=== PATIENT | male | born 1965 | race Caucasian/White ===

== ENCOUNTER 2020-07-30 14:35 | Inpatient (IN) | payer OTHER ==
--- NOTE | 2020-07-30 15:12 | PDOC ---
History of Present Illness - General Chief Complaint: Wound Stated Complaint: WOUND Time Seen by Provider: 07/30/20 14:58 - History of Present Illness Initial Comments: 54 yom h/o diabetes (a1c 12.8) presents from Dr. Davis's office for infected 4th toe on right foot and admission for abx. Patient injured toe 1 month prior. Tried to manage conservatively over previous month. Toe became black over last few days, presented to Dr. Davis today, who recd presenting to ER for management of gangrenous toe with admission and IV antibiotics. Patient denies fever, chills, n/v/d, cp, sob. Constitutional: No Weight Change, No Fever, No Chills, No Night Sweats, No Fatigue, No Malaise ENT/Mouth: No Hearing Changes, No Ear Pain, No Nasal Congestion, No Sinus Pain, No Hoarseness, No sore throat, No Rhinorrhea, No Swallowing Difficulty Eyes: No Eye Pain, No Swelling, No Redness, No Foreign Body, No Discharge, No Vision Changes Cardiovascular: No Chest Pain, No SOB, No PND, No Dyspnea on Exertion, No Orthopnea, No Claudication, No Edema, No Palpitations Respiratory: No Cough, No Sputum, No Wheezing, No Smoke Exposure, No Dyspnea Gastrointestinal: No Nausea, No Vomiting, No Diarrhea, No Constipation, No Pain, No Heartburn, No Anorexia, No Dysphagia, No Hematochezia, No Melena, No Flatulence, No Jaundice Genitourinary: No Dysmenorrhea, No DUB, No Dyspareunia, No Dysuria, No Urinary Frequency, No Hematuria, No Urinary Incontinence, No Urgency, No Flank Pain, No Urinary Flow Changes, No Hesitancy Musculoskeletal: No Arthralgias, No Myalgias, No Joint Swelling, No Joint Stiffness, No Back Pain, No Neck Pain, No Injury History Skin: No Skin Lesions, No Pruritis, No Hair Changes, No Breast/Skin Changes, No Nipple Discharge Neuro: No Weakness, No Numbness, No Paresthesias, No Loss of Consciousness, No Syncope, No Dizziness, No Headache, No Coordination Changes, No Recent Falls Psych: No Anxiety/Panic, No Depression, No Insomnia, No Personality Changes, No Delusions, No Rumination, No SI/HI/AH/VH, No Social Issues, No Memory Changes, No Violence/Abuse Hx., No Eating Concerns Heme/Lymph: No Bruising, No Bleeding, No Transfusions History, No Lymphadenopathy Endocrine: No Polyuria, No Polydipsia, No Temperature Intolerance 07/30/20 17:31 Past History - Medical History Allergies/Adverse Reactions: Allergies Allergy/AdvReac Type Severity Reaction Status Date / Time No Known Allergies Allergy Verified 07/30/20 14:42 Home Medications: Ambulatory Orders Amlodipine Besylate [Norvasc -] 10 mg PO DAILY 07/30/20 Ammonium Lactate Cream [Lac-Hydrin 12% *Cream*] 1 applic TP DAILY PRN 07/30/20 Aspirin [ASA -] 81 mg PO DAILY 07/30/20 Basaglar Kwikpen U-100 35 unit SQ HS 07/30/20 Diflorasone Diacetate/Emoll [Apexicon E 0.05% Cream] 30 gm TP DAILY PRN 07/30/20 Glipizide 10 mg PO BID 07/30/20 Lansoprazole [Prevacid] 30 mg PO DAILY 07/30/20 Lisinopril 20 mg PO DAILY 07/30/20 Metformin HCl [Glucophage] 1,000 mg PO BID 07/30/20 Simvastatin 40 mg PO DAILY 07/30/20 Sitagliptin Phosphate [Januvia] 100 mg PO DAILY 07/30/20 COPD: No Diabetes: Yes GI Disorders: Yes (acid reflex) HTN: Yes Hypercholesterolemia: Yes - Surgical History Abdominal Surgery: No Appendectomy: No Cardiac Surgery: No Cholecystectomy: No (gallstones) Lung Surgery: No Neurologic Surgery: No Orthopedic Surgery: Yes (right broken foot) - Psycho-Social/Smoking History Smoking History: Never smoked Have you smoked in the past 12 months: No - Substance Abuse Hx (Audit-C & DAST Scrn) How often the patient has a drink containing alcohol: Never Score: In Men: 4 or > Positive; In Women: 3 or > Positive: 0 Screen Result (Pos requires Nsg. Audit-10AR): Negative In the last yr the pt used illegal drug/Rx for NonMed reason: No Score: Yes response is considered Positive: 0 Screen Result (Positive result requires Nsg. DAST-10): Negative *Physical Exam - Vital Signs Last Vital Signs Temp Pulse Resp BP Pulse Ox 98.4 F 89 18 129/74 100 07/30/20 14:42 07/30/20 14:42 07/30/20 14:42 07/30/20 14:42 07/30/20 14:42 - Physical Exam General Appearance: Yes: Nourished, Appropriately Dressed HEENT: positive: EOMI, MIGUEL, Normal ENT Inspection, Normal Voice, Symmetrical, TMs Normal, Pharynx Normal Neck: positive: Trachea midline, Normal Thyroid Respiratory/Chest: positive: Lungs Clear, Normal Breath Sounds Cardiovascular: positive: Regular Rhythm, Regular Rate, S1, S2 Gastrointestinal/Abdominal: positive: Flat, Soft (4th digit on right foot is black,no surrounding erythema, no discharge, sensation intact, pedal pulses intact, cap refill 2+) ED Treatment Course - LABORATORY CBC & Chemistry Diagram: 07/30/20 16:04 07/30/20 16:04 Medical Decision Making - Medical Decision Making 54 yom h/o diabetes with gangrenous toe - vitals wnl - exam reveals 4th digit on right foot black in color, no discharge, sensation intact, pedal pulses intact, no surrounding erythema - will do cbc, cmp, blood cultures, cxr, ekg, xray right foot, vanc + zosyn, CTA w/ bl runoff - will consult barbra davis and [place] reassess - spoke with dr villasenor who agrees with current plan - ekg is wnl - will admit patient for IV antibiotics and management of toe 07/30/20 17:33 Discharge - Discharge Information Problems reviewed: Yes Clinical Impression/Diagnosis: Gangrene - Follow up/Referral - Patient Discharge Instructions - Post Discharge Activity
[2020-07-30] MEDS ORDERED: VANCOMYCIN 1,000 MG in DEXTROSE 5%-WATER - 250 ML IVPB ONE (15:50)
[2020-07-30] MEDS ORDERED: PIPERACILLIN/TAZOB 4.5 GM 4.5 GM in DEXTROSE 5%-WATER 100 ML IVPB ONE (15:50)
--- NOTE | 2020-07-30 15:51 | PDOC ---
Documentation entered by Jakob Helton SCRIBE, acting as scribe for Jairo Hayden MD. Jairo Hayden MD: This documentation has been prepared by the Sunitha merchant Angel, SCRIBE, under my direction and personally reviewed by me in its entirety. I confirm that the documentation accurately reflects all work, treatment, procedures, and medical decision making performed by me. Attending Attestation - Resident Resident Name: Dominick Wolf - ED Attending Attestation I have performed the following: I have examined & evaluated the patient, The case was reviewed & discussed with the resident, I agree w/resident's findings & plan, Exceptions are as noted - HPI HPI: 07/30/20 15:45 54y M hx of DM presents with foot wound. The pt notes that the nail of his R 4th pinky toe turned black a few weeks ago, he has been following with wound care, and today, he was sent down to the ED by wound care for evlauation of the wound and for a possible Ct. the patient denies any significant pain denies any fever, chills, nausea, vomiting, chest pain, palpitations, lightheadedness, shortness of breath, coughing. Denies any recent trauma or injury besides his nail turning black. - Physicial Exam PE: 07/30/20 15:47 GENERAL: The patient is awake, alert, and fully oriented, Nontoxic - in no acute distress. HEAD: Normocephalic, atraumatic. EYES: extraocular movements intact, sclera anicteric, conjunctiva clear. ENT: Normal voice, Moist mucous membranes. NECK: Normal range of motion, supple LUNGS: Breath sounds equal, clear to auscultation bilaterally. No wheezes, no rhonchi, no rales. HEART: Regular rate and rhythm, normal S1 and S2 without murmur, rub or gallop. ABDOMEN: Soft, nontender, No guarding, no rebound. No CVA tenderness EXTREMITIES: Normal range of motion, no edema. Dorsalis pedis pulses symmetric bilaterally, wound on the dorsal aspect of the right fourth toe, hyperpigmentation/sloughing skin noted on tip, the anterior lateral aspect, diminished sensation along the fourth toe, no significant tenderness to palpation, no purulent discharge, no significant warmth. NEUROLOGICAL: No facial assymetry, Normal speech, PSYCH: Normal mood, normal affect. SKIN: Warm, Dry, normal turgor, - Medical Decision Making 07/30/20 15:48 54-year-old gentleman history of poorly controlled diabetes presenting with wound on his right fourth toe Concerning for diabetic wound consider possible osteomyelitis versus ?gangerine will start abx will obtain CT per vascular 07/30/20 16:48 signed out evening team to fu with results and dispo patient anticipate admission for iv abx Heart Score/ECG Review - ECG Impressions Comment:: 07/30/20 15:51 Twelve-lead EKG was performed and reviewed by me. There is normal sinus rhythm with a normal rate. Rate of 85 The axis is normal. The intervals are normal. There is normal R wave progression Nonspecific T wave abnormality Discharge - Discharge Information Problems reviewed: Yes Clinical Impression/Diagnosis: Gangrene Condition: Stable - Follow up/Referral - Patient Discharge Instructions - Post Discharge Activity
[2020-07-30] MEDS ORDERED: PIPERACILLIN/TAZOB 4.5 GM 4.5 GM/100 ML BAG IVPB ONE (16:11)
[2020-07-30] MEDS ORDERED: VANCOMYCIN 1 GRAM (PRE-DOCKED) 1,000 MG/250 ML BAG IVPB ONE (16:12)
[2020-07-30 16:17] LABS: BASO % 0.8 % (0-2.0); EOS % 1.5 % (0-4.5); HEMATOCRIT 36.2 % (35.4-49); HEMOGLOBIN 11.7 GM/dL (11.7-16.9); MCH 28.5 pg (25.7-33.7); MCHC 32.4 g/dl (32.0-35.9); MEAN PLT VOLUME 10.6 fl (7.5-11.1); MONO % 5.6 % (3.8-10.2); NEUT % 76.1 % (42.8-82.8); PLATELET COUNT 179 K/MM3 (134-434); RBC 4.11 M/mm3 (4.00-5.60); RDW 14.1 % (11.9-15.9); WHITE BLOOD COUNT 7.3 K/mm3 (4.0-10.0)
[2020-07-30 16:47] LABS: ALBUMIN 4.1 g/dl (3.4-5.0); ALK PHOS 62 U/L (45-117); ANION GAP 6 MMOL/L (8-16); BILIRUBIN,TOTAL 0.2 mg/dL (0.2-1); BLOOD UREA NITROGEN 25.1 mg/dL (7-18); CALCIUM 9.3 mg/dL (8.5-10.1); CHLORIDE 103 mmol/L (98-107); CO2 24 mmol/L (21-32); CREATININE 1.4 mg/dL (0.55-1.3); POTASSIUM 5.3 mmol/L (3.5-5.1); SGOT/AST 11 U/L (15-37); SGPT/ALT 26 U/L (13-61); SODIUM 134 mmol/L (136-145); TOT PROT 7.4 g/dl (6.4-8.2)
[2020-07-30 17:11] LABS: ERYTHROCYTE SEDIMENTATION RATE 13 mm/hr (0-20)
[2020-07-30 17:23] LABS: GLUCOSE,RANDOM 420 mg/dL (74-106)
--- NOTE | 2020-07-30 18:24 | HP ---
CHIEF COMPLAINT: right foot pain PCP: N/A HISTORY OF PRESENT ILLNESS: 54 y.o. M PMH uncontrolled diabetes mellitus, HTN presenting from Dr. Dyer's vascular office for right foot 4th digit wound. Patient denies trauma to the area n my interview however endorses stubbing his toe 1 month ago to ED staff. Three days ago, he noticed his 4th digit toenail fell off and became increasingly necrotic over the last 2 days. He has been noticing bloody drainage from the wound. Patient has not been using any topical medications on the wound at home. The patient has minimal pain and is able to ambulate. At baseline walks without a cane or walker. He is being admitted for IV antibiotics. ROS: + R 4th digit toe pain denies parasthesias/ myalgias ER course was notable for: (1) vancbaljindern (2) (3) Recent Travel: PAST MEDICAL HISTORY: as per hpi PAST SURGICAL HISTORY: left eye hematoma? a few months ago Social History: Smoking: denies Alcohol: denies Drugs: denies Allergies No Known Allergies Allergy (Verified 07/30/20 14:42) HOME MEDICATIONS: Home Medications Medication Instructions Recorded Amlodipine Besylate [Norvasc -] 10 mg PO DAILY 07/30/20 Ammonium Lactate Cream [Lac-Hydrin 1 applic TP DAILY PRN 07/30/20 12% *Cream*] Aspirin [ASA -] 81 mg PO DAILY 07/30/20 Basaglar Kwikpen U-100 35 unit SQ HS 07/30/20 Diflorasone Diacetate/Emoll 30 gm TP DAILY PRN 07/30/20 [Apexicon E 0.05% Cream] Glipizide 10 mg PO BID 07/30/20 Lansoprazole [Prevacid] 30 mg PO DAILY 07/30/20 Lisinopril 20 mg PO DAILY 07/30/20 Metformin HCl [Glucophage] 1,000 mg PO BID 07/30/20 Simvastatin 40 mg PO DAILY 07/30/20 Sitagliptin Phosphate [Januvia] 100 mg PO DAILY 07/30/20 PHYSICAL EXAMINATION Vital Signs - 24 hr 07/30/20 14:42 Temperature 98.4 F Pulse Rate 89 Respiratory 18 Rate Blood Pressure 129/74 O2 Sat by Pulse 100 Oximetry (%) GENERAL: Awake, alert, and fully oriented, in no acute distress. HEENT: NCAT. EOMI. PERRLA. Sclera anicteric. LUNGS: Breath sounds equal, clear to auscultation bilaterally. No wheezes, and no crackles. No accessory muscle use. HEART: Regular rate and rhythm, normal S1 and S2 without murmur, rub or gallop. ABDOMEN: Soft, nontender, not distended, normoactive bowel sounds, no guarding MUSCULOSKELETAL: Normal range of motion at all joints. No bony deformities or tenderness. No CVA tenderness. UPPER EXTREMITIES: 2+ pulses, warm, well-perfused. No cyanosis. No clubbing. No peripheral edema. LOWER EXTREMITIES: 2+ pulses, warm, well-perfused. No calf tenderness. No peripheral edema. R foot 4th digit wound with scant bleeding and skin necrosis. NEUROLOGICAL: Cranial nerves II-XII intact. PSYCHIATRIC: Cooperative. Good eye contact. Appropriate mood and affect. SKIN: Warm, dry, normal turgor, no rashes or lesions noted Laboratory Results - last 24 hr 07/30/20 07/30/20 16:04 16:04 WBC 7.3 RBC 4.11 Hgb 11.7 Hct 36.2 MCV 88.0 MCH 28.5 MCHC 32.4 RDW 14.1 Plt Count 179 MPV 10.6 Absolute Neuts (auto) 5.6 Neutrophils % 76.1 Lymphocytes % 16.0 Monocytes % 5.6 Eosinophils % 1.5 Basophils % 0.8 Nucleated RBC % 0 ESR 13 Sodium 134 L Potassium 5.3 H Chloride 103 Carbon Dioxide 24 Anion Gap 6 L BUN 25.1 H Creatinine 1.4 H Est GFR (CKD-EPI)AfAm 65.09 Est GFR (CKD-EPI)NonAf 56.16 Random Glucose 420 H* Calcium 9.3 Total Bilirubin 0.2 AST 11 L ALT 26 Alkaline Phosphatase 62 C-Reactive Protein < 0.3 Total Protein 7.4 Albumin 4.1 ASSESSMENT/PLAN: 54 y.o. M PMH uncontrolled diabetes mellitus, HTN presenting from Dr. Dyer's vascular office for management of right foot 4th digit wound. #Gangrene of right 4th digit -s/p vanc & zosyn in ED- continue -f/u inflamm markers: ESR, CRP -f/u blood and wound cultures -ID consulted- Dr. Del Rio -Vascular following- Dr. Dyer -f/u Toe Xray, cta runoff -Podiatry consulted #Uncontrolled DM -Insulin sliding scale -Resume long acting insulin 35U SQ HS -HbA1c 12.8% in june -diabetic education -spoke with patient regarding importance of medication compliance #Hyperkalemia -downtrending -w/ addition of insulin f/u bmp #Elevated Creatinine -cr 1.6 last visit, 1.4 today -f/u repeat BMP #FEN -no standing fluids -Na wnl corrected for hyperglycemia. hyperkalemia improving -diabetic diet #PPX -heparin sq Dispo: med surg Family Medical History Family History: Denies Visit type - Emergency Visit Emergency Visit: Yes ED Registration Date: 07/30/20 Care time: The patient presented to the Emergency Department on the above date and was hospitalized for further evaluation of their emergent condition. - New Patient This patient is new to me today: Yes Date on this admission: 08/04/20 - Critical Care Critical Care patient: No ATTENDING PHYSICIAN STATEMENT I saw and evaluated the patient. I reviewed the resident's note and discussed the case with the resident. I agree with the resident's findings and plan as documented. SUBJECTIVE: OBJECTIVE: ASSESSMENT AND PLAN:
[2020-07-30] MEDS ORDERED: ACETAMINOPHEN 325 MG TABLET (FP) PO PRN (20:13)
[2020-07-30] MEDS ORDERED: INSULIN REGULAR HUMAN 100 UNITS/ML *VIAL IVPUSH ONE (20:18)
--- NOTE | 2020-07-30 21:02 | PN ---
Teaching Attending Note Name of Resident: Stefany Reagan ATTENDING PHYSICIAN STATEMENT I saw and evaluated the patient. I reviewed the resident's note and discussed the case with the resident. I agree with the resident's findings and plan as documented. SUBJECTIVE: 54y M hx of DM presents with foot wound. OBJECTIVE: V/S Afebrile HR 85 BP 125/70 100% on RA Labs : No leukocytosis BMP: Na 134 Gluc 420 BUN/Creat 25/ 1.4 CO2 24 AG 6 In ED- Vanc and zosyn ASSESSMENT AND PLAN: Diabetic Foot Infection Continue vanc/zosyn ESR/ CRP BCx x 2 Vascular surgery Podiatry consult F/U imaging DM uncontrolled with Hyperglycemia HbA1C -12.8 07/23/2020 Basal Insulin 35 units q pm ISS Monitor F/S HyperK+ Monitor BMP Serially q 6 EKG Insulin for hyperglycemia and HyperK DVT Px- HSQ 5K TID Diet Diabetic
[2020-07-30] MEDS ORDERED: INSULIN (LEVEMIR) 100 UNITS/ML UNITS SQ SCH (22:00)
[2020-07-30] MEDS ORDERED: DEXTROSE 5%-WATER - 50 ML IVPB ONE (22:47)
[2020-07-30] MEDS ORDERED: PIPERACILLIN/TAZOBACTAM 3.375 GM VIAL IVPB ONE (22:47)
[2020-07-30] MEDS: INSULIN SLIDING SCALE (NOVOLOG) 1 VIAL SQ SCH (22:58)
[2020-07-30] MEDS: PIPERACILLIN/TAZOB 3.375 GM 3.375 GM in DEXTROSE 5%-WATER - 50 ML IVPB SCH (22:59)
[2020-07-31 01:42] VITALS: BMI 28.2
[2020-07-31] MEDS ORDERED: PNEUMOC 13-VAL CONJ-DIP CRM/PF 0.5 ML DISP.SYRIN IM ONE (02:25)
[2020-07-31] MEDS ORDERED: DEXTROSE 5%-WATER - 50 ML IVPB ONE ×3 (02:31→17:14)
[2020-07-31] MEDS ORDERED: PIPERACILLIN/TAZOBACTAM 3.375 GM VIAL IVPB ONE ×4 (02:31→17:13)
[2020-07-31] MEDS: PIPERACILLIN/TAZOB 3.375 GM 3.375 GM in DEXTROSE 5%-WATER - 50 ML IVPB SCH ×5 (02:57→17:22)
[2020-07-31] MEDS: HEPARIN NA (PORCINE) 5,000 UNITS/ML 1ML VIAL SQ SCH ×3 (06:25→21:30)
[2020-07-31] MEDS: INSULIN SLIDING SCALE (NOVOLOG) 1 VIAL SQ SCH ×4 (06:25→21:28)
[2020-07-31 08:19] LABS: BASO % 0.7 % (0-2.0); EOS % 3.1 % (0-4.5); HEMATOCRIT 37.7 % (35.4-49); HEMOGLOBIN 12.5 GM/dL (11.7-16.9); LYMPH % 38.8 % (8-40); MCHC 33.2 g/dl (32.0-35.9); MEAN CELL VOLUME 87.4 fl (80-96); MEAN PLT VOLUME 10.6 fl (7.5-11.1); MONO % 6.6 % (3.8-10.2); NEUT % 50.8 % (42.8-82.8); PLATELET COUNT 193 K/MM3 (134-434); RBC 4.32 M/mm3 (4.00-5.60); RDW 14.3 % (11.9-15.9); WHITE BLOOD COUNT 8.5 K/mm3 (4.0-10.0)
[2020-07-31 08:44] LABS: INR 1.06 (0.83-1.09); PROTHROMBIN TIME (PATIENT) 12.5 SEC (9.7-13.0)
[2020-07-31 08:46] LABS: ACTIVATED PTT 30.4 SECONDS (25.2-36.5)
[2020-07-31 08:50] LABS: ALBUMIN 4.1 g/dl (3.4-5.0); ALK PHOS 61 U/L (45-117); ANION GAP 9 MMOL/L (8-16); BILIRUBIN,TOTAL 0.4 mg/dL (0.2-1); BLOOD UREA NITROGEN 21.6 mg/dL (7-18); CALCIUM 9.4 mg/dL (8.5-10.1); CHLORIDE 102 mmol/L (98-107); CO2 28 mmol/L (21-32); CREATININE 1.5 mg/dL (0.55-1.3); GLUCOSE,RANDOM 161 mg/dL (74-106); MAGNESIUM 2.2 mg/dL (1.8-2.4); POTASSIUM 3.9 mmol/L (3.5-5.1); SGOT/AST 14 U/L (15-37); SGPT/ALT 27 U/L (13-61); SODIUM 139 mmol/L (136-145); TOT PROT 7.8 g/dl (6.4-8.2)
[2020-07-31] MEDS ORDERED: PT OWN MED DRAWER 7, Y5N ONE (10:29)
[2020-07-31] MEDS: PANTOPRAZOLE 40 MG TABLET PO SCH (10:36)
[2020-07-31] MEDS: LISINOPRIL 20 MG TABLET PO SCH (10:36)
[2020-07-31] MEDS: amLODIPine BESYLATE 10 MG TABLET (FP) PO SCH (10:36)
--- NOTE | 2020-07-31 11:20 | CON.ID ---
Consult Consult Specialty:: infectious diseases Referred by:: hospitalist Reason for Consultation:: diabtic ulcer and necrotic toe cellulitis of the leg - History of Present Illness Chief Complaint: necrotic toe and swelling of the foot History of Present Illness: 54 y.o. M PMH uncontrolled diabetes mellitus, HTN presenting from Dr. Dyer's vascular office for right foot 4th digit wound. Patient denies trauma to the area however endorses stubbing his toe 1 month ago to ED staff. Three days ago, he noticed his 4th digit toenail fell off and became increasingly necrotic over the last 2 days. He has been noticing bloody drainage from the wound. Patient has not been using any topical medications on the wound at home. The patient has minimal pain and is able to ambulate. At baseline walks without a cane or walker. - History Source History Provided By: Patient, Family Member Limitations to Obtaining History: Language Barrier - Smoking History Smoking history: Never smoked Have you smoked in the past 12 months: No Home Medications - Allergies Allergies/Adverse Reactions: Allergies Allergy/AdvReac Type Severity Reaction Status Date / Time No Known Allergies Allergy Verified 07/30/20 14:42 - Home Medications Home Medications: Ambulatory Orders Amlodipine Besylate [Norvasc -] 10 mg PO DAILY 07/30/20 Ammonium Lactate Cream [Lac-Hydrin 12% *Cream*] 1 applic TP DAILY PRN 07/30/20 Aspirin [ASA -] 81 mg PO DAILY 07/30/20 Faustina Nguyenpen U-100 35 unit SQ HS 07/30/20 Diflorasone Diacetate/Emoll [Apexicon E 0.05% Cream] 30 gm TP DAILY PRN 07/30/20 Glipizide 10 mg PO BID 07/30/20 Lansoprazole [Prevacid] 30 mg PO DAILY 07/30/20 Lisinopril 20 mg PO DAILY 07/30/20 Metformin HCl [Glucophage] 1,000 mg PO BID 07/30/20 Simvastatin 40 mg PO DAILY 07/30/20 Sitagliptin Phosphate [Januvia] 100 mg PO DAILY 07/30/20 Review of Systems - Review of Systems Constitutional: reports: No Symptoms Eyes: reports: No Symptoms HENT: reports: No Symptoms Neck: reports: No Symptoms Cardiovascular: reports: No Symptoms Respiratory: reports: No Symptoms Gastrointestinal: reports: No Symptoms Genitourinary: reports: No Symptoms Musculoskeletal: reports: No Symptoms Integumentary: reports: Erythema (of the foot), Wound, Other Neurological: reports: No Symptoms Endocrine: reports: No Symptoms Hematology/Lymphatic: reports: No Symptoms Psychiatric: reports: No Symptoms Physical Exam Vital Signs: Vital Signs Temperature 98.5 F 07/31/20 05:55 Pulse Rate 77 07/31/20 05:55 Respiratory Rate 20 07/31/20 05:55 Blood Pressure 96/56 L 07/31/20 05:55 O2 Sat by Pulse Oximetry (%) 99 07/31/20 05:55 Constitutional: Yes: Well Nourished, Calm, Mild Distress Eyes: Yes: Conjunctiva Clear HENT: Yes: Atraumatic, Normocephalic Neck: Yes: Supple, Trachea Midline Cardiovascular: Yes: Regular Rate and Rhythm Respiratory: Yes: Regular, CTA Bilaterally Gastrointestinal: Yes: Normal Bowel Sounds, Soft Musculoskeletal: Yes: WNL Extremities: Yes: Other (necrotic wound,with peeling of the skin of the 4th toe) Integumentary: Yes: Skin Tear, Other Wound/Incision: Yes: Dressing Removed, Other (necrotic) Neurological: Yes: Alert, Oriented Psychiatric: Yes: Alert, Oriented Labs: CBC, BMP 07/31/20 07:26 07/31/20 07:26 Imaging - Results Chest X-ray: Report Reviewed, Image Reviewed X-ray: Report Reviewed, Image Reviewed Cat Scan: Report Reviewed, Image Reviewed Assessment/Plan 54 y.o. M PMH uncontrolled diabetes mellitus, HTN presenting from Dr. Dyer's vascular office for management of right foot 4th digit wound. necrotic ulcer of the rt 4th toe dm hyperkalemia increased creatinine plan will start patient on zosyn and oral doxy also await for results hydration rest as per the team #
--- NOTE | 2020-07-31 14:00 | CONSULT ---
Consult Consult Specialty:: Nephrology Reason for Consultation:: ckd - History of Present Illness Chief Complaint: sent in for vascular for lower ext wound History of Present Illness: Pt is a 54 year old male with pmhx of poorly controlled DM and HTN who was sent in from vascular for right foot 4th digit wound. 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 He has had DM for about 30 years. His DM is poorly controlled. He denies dysuria or hematuria. He denies fevers or chills. He denies nsaid use. He denies history of CKD. - History Source History Provided By: Patient - Past Medical History Cardio/Vascular: Yes: HTN Endocrine: Yes: Diabetes Mellitus - Smoking History Smoking history: Never smoked Have you smoked in the past 12 months: No Home Medications - Allergies Allergies/Adverse Reactions: Allergies Allergy/AdvReac Type Severity Reaction Status Date / Time No Known Allergies Allergy Verified 07/30/20 14:42 - Home Medications Home Medications: Ambulatory Orders Amlodipine Besylate [Norvasc -] 10 mg PO DAILY 07/30/20 Ammonium Lactate Cream [Lac-Hydrin 12% *Cream*] 1 applic TP DAILY PRN 07/30/20 Aspirin [ASA -] 81 mg PO DAILY 07/30/20 Basaglar Kwikpen U-100 35 unit SQ HS 07/30/20 Diflorasone Diacetate/Emoll [Apexicon E 0.05% Cream] 30 gm TP DAILY PRN 07/30/20 Glipizide 10 mg PO BID 07/30/20 Lansoprazole [Prevacid] 30 mg PO DAILY 07/30/20 Lisinopril 20 mg PO DAILY 07/30/20 Metformin HCl [Glucophage] 1,000 mg PO BID 07/30/20 Simvastatin 40 mg PO DAILY 07/30/20 Sitagliptin Phosphate [Januvia] 100 mg PO DAILY 07/30/20 Family Medical History Family History: Denies Review of Systems - Review of Systems Constitutional: reports: No Symptoms Eyes: reports: No Symptoms HENT: reports: No Symptoms Neck: reports: No Symptoms Cardiovascular: reports: No Symptoms Respiratory: reports: No Symptoms Gastrointestinal: reports: No Symptoms Genitourinary: reports: No Symptoms Musculoskeletal: reports: No Symptoms Integumentary: reports: No Symptoms Neurological: reports: No Symptoms Endocrine: reports: No Symptoms Hematology/Lymphatic: reports: No Symptoms Psychiatric: reports: No Symptoms Physical Exam Vital Signs: Vital Signs Temperature 98.8 F 07/31/20 09:00 Pulse Rate 90 07/31/20 09:00 Respiratory Rate 20 07/31/20 09:00 Blood Pressure 124/84 07/31/20 09:00 O2 Sat by Pulse Oximetry (%) 100 07/31/20 09:00 Constitutional: Yes: Calm Eyes: Yes: Conjunctiva Clear HENT: Yes: Atraumatic Neck: Yes: Supple Cardiovascular: Yes: S1, S2 Respiratory: Yes: CTA Bilaterally Renal/: Yes: WNL Musculoskeletal: Yes: WNL Edema: No Wound/Incision: Yes: Open to air Neurological: Yes: Oriented Psychiatric: Yes: Oriented Labs: CBC, BMP 07/31/20 07:26 07/31/20 07:26 Laboratory Tests 07/23/20 07/23/20 07/30/20 12:55 12:55 16:04 Creatinine 1.6 H 1.4 H Hemoglobin A1c % 12.8 H Phosphorus COVID-19 (ANNMARIE) 07/30/20 07/31/20 16:09 07:26 Creatinine 1.5 H Hemoglobin A1c % Phosphorus 5.0 H COVID-19 (ANNMARIE) Pending Imaging - Results Chest X-ray: Report Reviewed Problem List - Problems (1) CKD (chronic kidney disease) Code(s): N18.9 - CHRONIC KIDNEY DISEASE, UNSPECIFIED (2) Diabetes mellitus Code(s): E11.9 - TYPE 2 DIABETES MELLITUS WITHOUT COMPLICATIONS (3) HTN (hypertension) Code(s): I10 - ESSENTIAL (PRIMARY) HYPERTENSION Assessment/Plan Current Medications Generic Name Dose Route Start Last Admin Trade Name Freq PRN Reason Stop Dose Admin Acetaminophen 650 mg 07/30/20 20:13 Tylenol - PO Q4H PRN PAIN LEVEL 7 - 10 Amlodipine Besylate 10 mg 07/31/20 10:00 07/31/20 10:36 Norvasc - PO 10 mg DAILY GLORIA Administration Atorvastatin Calcium 40 mg 07/31/20 22:00 Lipitor - PO HS GLORIA Doxycycline Hyclate 100 mg 07/31/20 18:00 Vibramycin - PO BID@1000,1800 GLORIA Heparin Sodium (Porcine) 5,000 unit 07/31/20 06:00 07/31/20 06:25 Heparin - SQ 5,000 unit TID GLORIA Administration Piperacillin Sod/Tazobactam 50 mls @ 100 mls/hr 07/31/20 11:30 07/31/20 11:27 Sod 3.375 gm/ Dextrose IVPB Not Given Q8H-IV GLORIA Protocol Insulin Aspart 1 vial 07/30/20 22:00 07/31/20 11:59 Novolog Vial Sliding Scale - SQ 6 units ACHS GLORIA Administration Protocol Insulin Detemir 35 units 07/30/20 22:00 07/30/20 22:58 Levemir Vial SQ 35 unit HS GLORIA Administration Lisinopril 20 mg 07/31/20 10:00 07/31/20 10:36 Prinivil PO 20 mg DAILY GLORIA Administration Pantoprazole Sodium 40 mg 07/31/20 10:00 07/31/20 10:36 Protonix - PO 40 mg DAILY GLORIA Administration Pneumococcal 13-Valent Conj Vacc 0.5 ml 07/31/20 02:25 Prevnar 13 Syringe - IM 07/31/20 02:26 .ONCE ONE Impression 1. CKD 2. HTN 3. DM 4. lower ext wound Plan - check renal ultrasound - check ua - check protein to data coder operator ratio - cont rachel - discussed importance of glucose control with pt - will comment more on etiology of elevated data coder operator after reviewing urine studies - will follow - will also need outpt follow up - cont wound care Thank You Dr Ibarra
--- NOTE | 2020-07-31 15:08 | PN ---
Physical Exam: SUBJECTIVE: Patient seen and examined OBJECTIVE: Vital Signs Period Temp Pulse Resp BP Sys/Chávez Pulse Ox Last 24 Hr 97.8 F-98.8 F 77-100 20-20 96-125/56-84 99-100 GENERAL: The patient is awake, alert, and fully oriented, in no acute distress. HEAD: Normal with no signs of trauma. EYES: PERRL, extraocular movements intact, sclera anicteric, conjunctiva clear. No ptosis. ENT: Ears normal, nares patent, oropharynx clear without exudates, moist mucous membranes. NECK: Trachea midline, full range of motion, supple. LUNGS: Breath sounds equal, clear to auscultation bilaterally, no wheezes, no crackles, no accessory muscle use. HEART: Regular rate and rhythm, S1, S2 without murmur, rub or gallop. ABDOMEN: Soft, nontender, nondistended, normoactive bowel sounds, no guarding, no rebound, no hepatosplenomegaly, no masses. EXTREMITIES: 2+ pulses, warm, well-perfused, no edema. rt 4th toe, ulcerated NEUROLOGICAL: Cranial nerves II through XII grossly intact. Normal speech, gait not observed. PSYCH: Normal mood, normal affect. SKIN: Warm, dry, normal turgor, no rashes or lesions noted Laboratory Results - last 24 hr 07/30/20 07/30/20 07/30/20 16:04 16:04 22:57 WBC 7.3 RBC 4.11 Hgb 11.7 Hct 36.2 MCV 88.0 MCH 28.5 MCHC 32.4 RDW 14.1 Plt Count 179 MPV 10.6 Absolute Neuts (auto) 5.6 Neutrophils % 76.1 Lymphocytes % 16.0 Monocytes % 5.6 Eosinophils % 1.5 Basophils % 0.8 Nucleated RBC % 0 ESR 13 PT with INR INR PTT (Actin FS) Sodium 134 L Potassium 5.3 H Chloride 103 Carbon Dioxide 24 Anion Gap 6 L BUN 25.1 H Creatinine 1.4 H Est GFR (CKD-EPI)AfAm 65.09 Est GFR (CKD-EPI)NonAf 56.16 POC Glucometer 331 Random Glucose 420 H* Calcium 9.3 Phosphorus Magnesium Total Bilirubin 0.2 AST 11 L ALT 26 Alkaline Phosphatase 62 C-Reactive Protein < 0.3 Total Protein 7.4 Albumin 4.1 07/31/20 07/31/20 07/31/20 06:24 07:26 07:26 WBC 8.5 RBC 4.32 Hgb 12.5 Hct 37.7 MCV 87.4 MCH 29.0 MCHC 33.2 RDW 14.3 Plt Count 193 MPV 10.6 Absolute Neuts (auto) 4.3 Neutrophils % 50.8 D Lymphocytes % 38.8 D Monocytes % 6.6 Eosinophils % 3.1 D Basophils % 0.7 Nucleated RBC % 0 ESR PT with INR 12.50 INR 1.06 PTT (Actin FS) 30.4 Sodium Potassium Chloride Carbon Dioxide Anion Gap BUN Creatinine Est GFR (CKD-EPI)AfAm Est GFR (CKD-EPI)NonAf POC Glucometer 169 Random Glucose Calcium Phosphorus Magnesium Total Bilirubin AST ALT Alkaline Phosphatase C-Reactive Protein Total Protein Albumin 07/31/20 07/31/20 07:26 11:59 WBC RBC Hgb Hct MCV MCH MCHC RDW Plt Count MPV Absolute Neuts (auto) Neutrophils % Lymphocytes % Monocytes % Eosinophils % Basophils % Nucleated RBC % ESR PT with INR INR PTT (Actin FS) Sodium 139 Potassium 3.9 Chloride 102 Carbon Dioxide 28 Anion Gap 9 BUN 21.6 H Creatinine 1.5 H Est GFR (CKD-EPI)AfAm 59.88 Est GFR (CKD-EPI)NonAf 51.67 POC Glucometer 293 Random Glucose 161 H Calcium 9.4 Phosphorus 5.0 H Magnesium 2.2 Total Bilirubin 0.4 AST 14 L ALT 27 Alkaline Phosphatase 61 C-Reactive Protein < 0.3 Total Protein 7.8 Albumin 4.1 Active Medications Generic Name Dose Route Start Last Admin Trade Name Freq PRN Reason Stop Dose Admin Acetaminophen 650 mg 07/30/20 20:13 Tylenol - PO Q4H PRN PAIN LEVEL 7 - 10 Amlodipine Besylate 10 mg 07/31/20 10:00 07/31/20 10:36 Norvasc - PO 10 mg DAILY GLORIA Administration Atorvastatin Calcium 40 mg 07/31/20 22:00 Lipitor - PO HS GLORIA Doxycycline Hyclate 100 mg 07/31/20 18:00 Vibramycin - PO BID@1000,1800 GLORIA Heparin Sodium (Porcine) 5,000 unit 07/31/20 06:00 07/31/20 14:13 Heparin - SQ 5,000 unit TID GLORIA Administration Piperacillin Sod/Tazobactam 50 mls @ 100 mls/hr 07/31/20 11:30 07/31/20 11:27 Sod 3.375 gm/ Dextrose IVPB Not Given Q8H-IV GLORIA Protocol Insulin Aspart 1 vial 07/30/20 22:00 07/31/20 11:59 Novolog Vial Sliding Scale - SQ 6 units ACHS GLORIA Administration Protocol Insulin Detemir 35 units 07/30/20 22:00 07/30/20 22:58 Levemir Vial SQ 35 unit HS GLORIA Administration Lisinopril 20 mg 07/31/20 10:00 07/31/20 10:36 Prinivil PO 20 mg DAILY GLORIA Administration Pantoprazole Sodium 40 mg 07/31/20 10:00 07/31/20 10:36 Protonix - PO 40 mg DAILY GLORIA Administration Pneumococcal 13-Valent Conj Vacc 0.5 ml 07/31/20 02:25 Prevnar 13 Syringe - IM 07/31/20 02:26 .ONCE ONE ASSESSMENT/PLAN: 54 YO M with uncontrolled, diabetic nephropathy & neuropathy, HTN, & HLD who presented with rt foot diabetic wound no responding to outpatient therapy # Diabetic Foot Infection Continue oral docxy + IV zosyn CRP not elevated blood culture pending CTA runoff done pending reading Vascular surgery consult ID consult Podiatry consult F/U imaging case discussed with ID and nephrology DM uncontrolled with Hyperglycemia BRICE on CKD HTN HLD DVT Px- HSQ 5K TID Visit type - Emergency Visit Emergency Visit: Yes ED Registration Date: 07/30/20 Care time: The patient presented to the Emergency Department on the above date and was hospitalized for further evaluation of their emergent condition. - New Patient This patient is new to me today: Yes Date on this admission: 07/31/20 - Critical Care Critical Care patient: No - Discharge Referral Referred to [facility] Med P.C.: No
[2020-07-31 15:55] LABS: PH,URINE 5.5 (5.0-8.0); URINE APPEARANCE CLEAR; URINE BILIRUBIN NEGATIVE (NEGATIVE); URINE COLOR YELLOW; URINE GLUCOSE (UA) 3+ (NEGATIVE); URINE KETONE NEGATIVE (NEGATIVE); URINE LEUK ESTERASE NEGATIVE (NEGATIVE); URINE NITRITE NEGATIVE (NEGATIVE); URINE PROTEIN TRACE (NEGATIVE); URINE UROBILINOGEN 0.2 mg/dL (0.2-1.0)
[2020-07-31] MEDS ORDERED: VANCOMYCIN 1 GM in D5W (PRE-DOCKED) 1,000 MG/250 ML IVPB SCH (16:00)
[2020-07-31] MEDS: DOXYCYCLINE HYCLATE 100 MG CAPSULE PO SCH (17:22)
[2020-07-31] MEDS ORDERED: PNEUMOCOCCAL 23 VACCINE 0.5 ML VIAL IM ONE (19:00)
[2020-07-31] MEDS: INSULIN (LEVEMIR) 100 UNITS/ML UNITS SQ SCH (21:28)
[2020-07-31] MEDS: ATORVASTATIN CA 20 MG TABLET (FP) PO SCH (21:29)
[2020-08-01] MEDS ORDERED: DEXTROSE 5%-WATER - 50 ML IVPB ONE ×3 (01:06→17:10)
[2020-08-01] MEDS ORDERED: PIPERACILLIN/TAZOBACTAM 3.375 GM VIAL IVPB ONE ×3 (01:06→17:10)
[2020-08-01] MEDS: PIPERACILLIN/TAZOB 3.375 GM 3.375 GM in DEXTROSE 5%-WATER - 50 ML IVPB SCH ×3 (01:09→17:12)
[2020-08-01] MEDS: INSULIN SLIDING SCALE (NOVOLOG) 1 VIAL SQ SCH ×4 (06:03→21:15)
[2020-08-01] MEDS: INSULIN (LEVEMIR) 100 UNITS/ML UNITS SQ SCH (06:04)
[2020-08-01] MEDS: HEPARIN NA (PORCINE) 5,000 UNITS/ML 1ML VIAL SQ SCH ×3 (06:04→21:15)
[2020-08-01 07:46] LABS: BASO % 0.7 % (0-2.0); EOS % 3.5 % (0-4.5); HEMATOCRIT 35.4 % (35.4-49); HEMOGLOBIN 11.6 GM/dL (11.7-16.9); LYMPH % 32.3 % (8-40); MCH 28.6 pg (25.7-33.7); MCHC 32.8 g/dl (32.0-35.9); MEAN CELL VOLUME 87.3 fl (80-96); MEAN PLT VOLUME 10.4 fl (7.5-11.1); MONO % 6.6 % (3.8-10.2); NEUT % 56.9 % (42.8-82.8); PLATELET COUNT 163 K/MM3 (134-434); RBC 4.05 M/mm3 (4.00-5.60); WHITE BLOOD COUNT 5.3 K/mm3 (4.0-10.0)
[2020-08-01 07:59] LABS: ALBUMIN 3.6 g/dl (3.4-5.0); BILIRUBIN,TOTAL 0.3 mg/dL (0.2-1); BLOOD UREA NITROGEN 22.2 mg/dL (7-18); CALCIUM 9.2 mg/dL (8.5-10.1); CREATININE 1.4 mg/dL (0.55-1.3); POTASSIUM 4.1 mmol/L (3.5-5.1); TOT PROT 6.7 g/dl (6.4-8.2)
[2020-08-01] MEDS ORDERED: PT OWN MED DRAWER 7, Y5N ONE (09:23)
[2020-08-01] MEDS: PANTOPRAZOLE 40 MG TABLET PO SCH (09:27)
[2020-08-01] MEDS: amLODIPine BESYLATE 10 MG TABLET (FP) PO SCH (09:27)
[2020-08-01] MEDS: DOXYCYCLINE HYCLATE 100 MG CAPSULE PO SCH ×2 (09:27→17:12)
[2020-08-01] MEDS: LISINOPRIL 20 MG TABLET PO SCH (09:27)
--- NOTE | 2020-08-01 10:47 | PN ---
Teaching Attending Note Name of Resident: Kael Scherer ATTENDING PHYSICIAN STATEMENT I saw and evaluated the patient. I reviewed the resident's note and discussed the case with the resident. I agree with the resident's findings and plan as documented. SUBJECTIVE: OBJECTIVE: ASSESSMENT AND PLAN:
--- NOTE | 2020-08-01 13:00 | PN ---
Physical Exam: SUBJECTIVE: Patient seen and examined. No acute events overnight. OBJECTIVE: Vital Signs Temperature 98.7 F 08/01/20 06:00 Pulse Rate 93 H 08/01/20 06:00 Respiratory Rate 20 08/01/20 09:00 Blood Pressure 109/60 08/01/20 06:00 O2 Sat by Pulse Oximetry (%) 97 08/01/20 09:00 GENERAL: The patient is awake, alert, and fully oriented, in no acute distress. HEAD: Normal with no signs of trauma. EYES: PERRLA, EOMI, sclera anicteric, conjunctiva clear. ENT: moist mucous membranes. NECK: Trachea midline, full range of motion, supple. LUNGS: Breath sounds equal, clear to auscultation bilaterally HEART: Regular rate and rhythm, S1, S2 without murmur ABDOMEN: Soft, nontender, nondistended, normoactive bowel sounds EXTREMITIES: 2+ pulses, warm, well-perfused, no edema. R foot 4th digit gangrenous wound with scant bleeding NEUROLOGICAL: Cranial nerves II through XII grossly intact. Normal speech. PSYCH: Normal mood, normal affect. SKIN: Warm, dry, normal turgor. Laboratory Results - last 24 hr 07/30/20 07/31/20 07/31/20 16:09 14:30 14:45 WBC RBC Hgb Hct MCV MCH MCHC RDW Plt Count MPV Absolute Neuts (auto) Neutrophils % Lymphocytes % Monocytes % Eosinophils % Basophils % Nucleated RBC % Sodium Potassium Chloride Carbon Dioxide Anion Gap BUN Creatinine Est GFR (CKD-EPI)AfAm Est GFR (CKD-EPI)NonAf POC Glucometer Random Glucose Calcium Total Bilirubin AST ALT Alkaline Phosphatase Total Protein Albumin Urine Color Yellow Urine Appearance Clear Urine pH 5.5 Ur Specific [place] 1.025 Urine Protein Trace Urine Glucose (UA) 3+ H Urine Ketones Negative Urine Blood Negative Urine Nitrite Negative Urine Bilirubin Negative Urine Urobilinogen 0.2 Ur Leukocyte Esterase Negative Ur Random Creatinine 71.0 U Random Total Protein 28.0 H Protein/Creatinin Ratio 0.4 COVID-19 (ANNMARIE) Not detected 07/31/20 07/31/20 08/01/20 17:23 21:27 06:02 WBC RBC Hgb Hct MCV MCH MCHC RDW Plt Count MPV Absolute Neuts (auto) Neutrophils % Lymphocytes % Monocytes % Eosinophils % Basophils % Nucleated RBC % Sodium Potassium Chloride Carbon Dioxide Anion Gap BUN Creatinine Est GFR (CKD-EPI)AfAm Est GFR (CKD-EPI)NonAf POC Glucometer 204 359 141 Random Glucose Calcium Total Bilirubin AST ALT Alkaline Phosphatase Total Protein Albumin Urine Color Urine Appearance Urine pH Ur Specific [place] Urine Protein Urine Glucose (UA) Urine Ketones Urine Blood Urine Nitrite Urine Bilirubin Urine Urobilinogen Ur Leukocyte Esterase Ur Random Creatinine U Random Total Protein Protein/Creatinin Ratio COVID-19 (ANNMARIE) 08/01/20 08/01/20 08/01/20 06:35 06:35 11:54 WBC 5.3 RBC 4.05 Hgb 11.6 L Hct 35.4 MCV 87.3 MCH 28.6 MCHC 32.8 RDW 14.0 Plt Count 163 MPV 10.4 Absolute Neuts (auto) 3.0 Neutrophils % 56.9 Lymphocytes % 32.3 Monocytes % 6.6 Eosinophils % 3.5 Basophils % 0.7 Nucleated RBC % 0 Sodium 138 Potassium 4.1 Chloride 105 Carbon Dioxide 25 Anion Gap 8 BUN 22.2 H Creatinine 1.4 H Est GFR (CKD-EPI)AfAm 65.09 Est GFR (CKD-EPI)NonAf 56.16 POC Glucometer 268 Random Glucose 160 H Calcium 9.2 Total Bilirubin 0.3 AST 10 L ALT 20 Alkaline Phosphatase 52 Total Protein 6.7 Albumin 3.6 Urine Color Urine Appearance Urine pH Ur Specific [place] Urine Protein Urine Glucose (UA) Urine Ketones Urine Blood Urine Nitrite Urine Bilirubin Urine Urobilinogen Ur Leukocyte Esterase Ur Random Creatinine U Random Total Protein Protein/Creatinin Ratio COVID-19 (ANNMARIE) Active Medications Generic Name Dose Route Start Last Admin Trade Name Freq PRN Reason Stop Dose Admin Acetaminophen 650 mg 07/30/20 20:13 Tylenol - PO Q4H PRN PAIN LEVEL 7 - 10 Amlodipine Besylate 10 mg 07/31/20 10:00 08/01/20 09:27 Norvasc - PO 10 mg DAILY GLORIA Administration Atorvastatin Calcium 40 mg 07/31/20 22:00 07/31/20 21:29 Lipitor - PO 40 mg HS GLORIA Administration Doxycycline Hyclate 100 mg 07/31/20 18:00 08/01/20 09:27 Vibramycin - PO 100 mg BID@1000,1800 GLORIA Administration Heparin Sodium (Porcine) 5,000 unit 07/31/20 06:00 08/01/20 06:04 Heparin - SQ 5,000 unit TID GLORIA Administration Piperacillin Sod/Tazobactam 50 mls @ 100 mls/hr 07/31/20 11:30 08/01/20 09:27 Sod 3.375 gm/ Dextrose IVPB 100 mls/hr Q8H-IV GLORIA Administration Protocol Insulin Aspart 1 vial 07/30/20 22:00 08/01/20 11:55 Novolog Vial Sliding Scale - SQ 6 units ACHS GLORIA Administration Protocol Insulin Detemir 30 units 07/31/20 22:00 08/01/20 06:04 Levemir Vial SQ 30 units BID@0700,2200 GLORIA Administration Lisinopril 20 mg 07/31/20 10:00 08/01/20 09:27 Prinivil PO 20 mg DAILY GLORIA Administration Pantoprazole Sodium 40 mg 07/31/20 10:00 08/01/20 09:27 Protonix - PO 40 mg DAILY GLORIA Administration ASSESSMENT/PLAN: Patient is a 54 year old male with past medical history of uncontrolled diabetes mellitus, HTN presenting from Dr. Dyer's office for management of right foot 4th digit wound. 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 Del Rio -Vascular following- Dr. Dyer -Podiatry consulted -Plan for angio tomorrow pending CTA results -NPO after midnight #Uncontrolled DM -Insulin sliding scale -long acting insulin 30U SQ bid -BGM ACHS -HbA1c 12.8% in june -diabetic education #Hyperkalemia -resolved #BRICE vs CKD -Cr 1.6 last visit, ?at baseline -renal ultrasound unremarkable -UA trace protein -continue monitoring renal function #FEN -no standing fluids -routine bmp monitoring -diabetic diet #PPX -heparin sq #Dispo: med surg Visit type - Emergency Visit Emergency Visit: Yes ED Registration Date: 07/30/20 Care time: The patient presented to the Emergency Department on the above date and was hospitalized for further evaluation of their emergent condition. - New Patient This patient is new to me today: Yes Date on this admission: 08/01/20 - Critical Care Critical Care patient: No ATTENDING PHYSICIAN STATEMENT I saw and evaluated the patient. I reviewed the resident's note and discussed the case with the resident. I agree with the resident's findings and plan as documented. SUBJECTIVE: OBJECTIVE: ASSESSMENT AND PLAN:
--- NOTE | 2020-08-01 15:00 | PN ---
Progress Note, Physician History of Present Illness: Pt seen and examined at bedside. He is awake and alert. he denies shortness of breath. - Current Medication List Current Medications: Active Medications Acetaminophen (Tylenol -) 650 mg PO Q4H PRN PRN Reason: PAIN LEVEL 7 - 10 Amlodipine Besylate (Norvasc -) 10 mg PO DAILY [facility] Last Admin: 08/01/20 09:27 Dose: 10 mg Documented by: Atorvastatin Calcium (Lipitor -) 40 mg PO HS [facility] Last Admin: 07/31/20 21:29 Dose: 40 mg Documented by: Doxycycline Hyclate (Vibramycin -) 100 mg PO BID@1000,1800 [facility] Last Admin: 08/01/20 09:27 Dose: 100 mg Documented by: Heparin Sodium (Porcine) (Heparin -) 5,000 unit SQ TID [facility] Last Admin: 08/01/20 13:03 Dose: 5,000 unit Documented by: Piperacillin Sod/Tazobactam (Sod 3.375 gm/ Dextrose) 50 mls @ 100 mls/hr IVPB Q8H-IV [facility]; Protocol Last Admin: 08/01/20 09:27 Dose: 100 mls/hr Documented by: Insulin Aspart (Novolog Vial Sliding Scale -) 1 vial SQ ACHS [facility]; Protocol Last Admin: 08/01/20 11:55 Dose: 6 units Documented by: Insulin Detemir (Levemir Vial) 30 units SQ BID@0700,2200 [facility] Last Admin: 08/01/20 06:04 Dose: 30 units Documented by: Insulin Detemir (Levemir Vial) 15 units SQ HS ONE Stop: 08/01/20 22:01 Lisinopril (Prinivil) 20 mg PO DAILY [facility] Last Admin: 08/01/20 09:27 Dose: 20 mg Documented by: Pantoprazole Sodium (Protonix -) 40 mg PO DAILY [facility] Last Admin: 08/01/20 09:27 Dose: 40 mg Documented by: - Objective Vital Signs: Vital Signs Temperature 98.7 F 08/01/20 13:58 Pulse Rate 103 H 08/01/20 13:58 Respiratory Rate 20 08/01/20 13:58 Blood Pressure 126/75 08/01/20 13:58 O2 Sat by Pulse Oximetry (%) 98 08/01/20 13:58 Constitutional: Yes: Calm Eyes: Yes: Conjunctiva Clear Cardiovascular: Yes: S1, S2 Respiratory: Yes: CTA Bilaterally Gastrointestinal: Yes: Normal Bowel Sounds, Soft Genitourinary: Yes: WNL Musculoskeletal: Yes: WNL Edema: No Neurological: Yes: Oriented Psychiatric: Yes: Oriented Labs: CBC, BMP 08/01/20 06:35 08/01/20 06:35 INR, PTT INR 1.06 (0.83-1.09) 07/31/20 07:26 Problem List - Problems (1) CKD (chronic kidney disease) Code(s): N18.9 - CHRONIC KIDNEY DISEASE, UNSPECIFIED (2) Diabetes mellitus Code(s): E11.9 - TYPE 2 DIABETES MELLITUS WITHOUT COMPLICATIONS (3) HTN (hypertension) Code(s): I10 - ESSENTIAL (PRIMARY) HYPERTENSION Assessment/Plan Current Medications Generic Name Dose Route Start Last Admin Trade Name Freq PRN Reason Stop Dose Admin Acetaminophen 650 mg 07/30/20 20:13 Tylenol - PO Q4H PRN PAIN LEVEL 7 - 10 Amlodipine Besylate 10 mg 07/31/20 10:00 08/01/20 09:27 Norvasc - PO 10 mg DAILY GLORIA Administration Atorvastatin Calcium 40 mg 07/31/20 22:00 07/31/20 21:29 Lipitor - PO 40 mg HS GLORIA Administration Doxycycline Hyclate 100 mg 07/31/20 18:00 08/01/20 09:27 Vibramycin - PO 100 mg BID@1000,1800 GLORIA Administration Heparin Sodium (Porcine) 5,000 unit 07/31/20 06:00 08/01/20 13:03 Heparin - SQ 5,000 unit TID GLORIA Administration Piperacillin Sod/Tazobactam 50 mls @ 100 mls/hr 07/31/20 11:30 08/01/20 09:27 Sod 3.375 gm/ Dextrose IVPB 100 mls/hr Q8H-IV GLORIA Administration Protocol Insulin Aspart 1 vial 07/30/20 22:00 08/01/20 11:55 Novolog Vial Sliding Scale - SQ 6 units ACHS GLORIA Administration Protocol Insulin Detemir 30 units 07/31/20 22:00 08/01/20 06:04 Levemir Vial SQ 30 units BID@0700,2200 GLORIA Administration Insulin Detemir 15 units 08/01/20 22:00 Levemir Vial SQ 08/01/20 22:01 HS ONE Lisinopril 20 mg 07/31/20 10:00 08/01/20 09:27 Prinivil PO 20 mg DAILY GLORIA Administration Pantoprazole Sodium 40 mg 07/31/20 10:00 08/01/20 09:27 Protonix - PO 40 mg DAILY [facility] Administration Laboratory Tests 07/31/20 07/31/20 14:30 14:45 Urine Protein Trace Urine Glucose (UA) 3+ H Urine Ketones Negative Urine Blood Negative Protein/Creatinin Ratio 0.4 Impression 1. CKD 2. HTN 3. DM 4. lower ext wound Plan - cont to monitor renal function - renal ultrasound reviewed - ua with trace protein - will need outpt follow up - cont rachel - long standing uncontrolled DM can contribute to CKD - cont wound care Thank You Dr Ibarra
[2020-08-01] MEDS ORDERED: INSULIN (NOVOLOG) ASPART 100 UNITS/ML 10ML VIAL ONE (21:12)
[2020-08-01] MEDS: ATORVASTATIN CA 20 MG TABLET (FP) PO SCH (21:15)
--- NOTE | 2020-08-01 21:36 | EKG ---
Test Reason : Blood Pressure : / mmHG Vent. Rate : 085 BPM Atrial Rate : 085 BPM P-R Int : 164 ms QRS Dur : 098 ms QT Int : 354 ms P-R-T Axes : 051 028 049 degrees QTc Int : 421 ms NORMAL SINUS RHYTHM NONSPECIFIC T WAVE ABNORMALITY ABNORMAL ECG NO PREVIOUS ECGS AVAILABLE Confirmed by ALEXIS VELEZ MD ([id number]) on 08/01/2020 9:36:06 PM Referred By: Confirmed By:ALEXIS VELEZ MD
[2020-08-01] MEDS ORDERED: INSULIN (LEVEMIR) 100 UNITS/ML UNITS SQ ONE (22:00)
[2020-08-02] MEDS ORDERED: PIPERACILLIN/TAZOBACTAM 3.375 GM VIAL IVPB ONE ×3 (01:50→16:40)
[2020-08-02] MEDS ORDERED: DEXTROSE 5%-WATER - 50 ML IVPB ONE ×2 (01:50→16:40)
[2020-08-02] MEDS: PIPERACILLIN/TAZOB 3.375 GM 3.375 GM in DEXTROSE 5%-WATER - 50 ML IVPB SCH ×3 (01:58→17:08)
[2020-08-02] MEDS: HEPARIN NA (PORCINE) 5,000 UNITS/ML 1ML VIAL SQ SCH ×3 (05:04→21:42)
[2020-08-02] MEDS: INSULIN SLIDING SCALE (NOVOLOG) 1 VIAL SQ SCH ×4 (06:27→21:35)
[2020-08-02 06:46] LABS: BASO % 0.6 % (0-2.0); HEMATOCRIT 32.8 % (35.4-49); HEMOGLOBIN 10.7 GM/dL (11.7-16.9); LYMPH % 27.3 % (8-40); MCH 28.4 pg (25.7-33.7); MCHC 32.6 g/dl (32.0-35.9); MEAN PLT VOLUME 10.3 fl (7.5-11.1); MONO % 6.7 % (3.8-10.2); NEUT % 63.4 % (42.8-82.8); PLATELET COUNT 161 K/MM3 (134-434); RBC 3.77 M/mm3 (4.00-5.60); RDW 14.4 % (11.9-15.9); WHITE BLOOD COUNT 6.6 K/mm3 (4.0-10.0)
[2020-08-02 07:26] LABS: ALBUMIN 3.5 g/dl (3.4-5.0); BILIRUBIN,TOTAL 0.4 mg/dL (0.2-1); BLOOD UREA NITROGEN 23.2 mg/dL (7-18); CALCIUM 8.7 mg/dL (8.5-10.1); CREATININE 1.5 mg/dL (0.55-1.3); POTASSIUM 4.9 mmol/L (3.5-5.1); TOT PROT 6.6 g/dl (6.4-8.2)
--- NOTE | 2020-08-02 07:49 | CONSULT ---
Consult - text type - Consultation Consultation Note: Podiatry Consultation: 54 year old diabetic male sent in for admission for worsening right fourth digit. Patient endorses a 2 week history of worsening digit. Patient notes having loosening of the nail, when he removed the piece of nail a small portion of the skin was removed. Denies F/V/N/C/SOB/CP. Afebrile currently. PMHx: DM, HTN, HLP, CKD Meds: noted in chart ALL: NKMA BRITTNEY: R foot: dorsalis pedis pulse 1/4, posterior tibial pulse 1/4, TG wnl. CFT delayed the right fourth digit. There are dry necrotic gangrenous changes exhibited to the distal half of the fourth digit. There is no probing to bone, no purulent drainage, no fluctuance, no streaking ascending cellulitis, no signs of active infection. No tenderness to palpation. Imp: 54 year old diabetic male with right fourth digit dry gangrene 1. IV abx per infectious disease 2. CTA obtained, results pending 3. Depending on results of CTA, may need RLE angiogram with Dr. Dyer 4. Discussed treatment options with patient regarding continued local care versus amputation of the digit. He is unsure of what to do at this time. We will discuss tomorrow regarding definitive options. 5. Will follow. Discussed with Dr. Dyer. Thank you for the courtesy of this consultation.
--- NOTE | 2020-08-02 09:15 | PN ---
Progress Note (short form) - Note Progress Note: Vascular Surgery 54 year old male comes in with 3 week history of right 4th toe discoloration. Pt took off his nail at home and then went to usability [facility]. Podiatry referred to wound care clinic. Pt is a non compliant, poorly controlled diabetic. Pt has a hemoglobin of 12.1. Pt came into wound care center on sunday with a discolored distal right fourth toe. Pt has a palpable DP pulse. CTA done . Not officially read by radiology. On review of the images, i do not see any occlusions. Podiatry is on the case and saw the pt this am. Pt was admitted on sunday, -- ID saw the pt in wound care center and admitted for IV antiboitics. At that time, with a intrepreter, we explained to the pt, that we need to check his circulation. We also explained to the patient that due his poorly controlled diabetes, he is not healing well on his toe, and there is a chance that he might lose his toe. Awaiting official read of CTA. Hugh Dyer DO
[2020-08-02] MEDS: DOXYCYCLINE HYCLATE 100 MG CAPSULE PO SCH ×2 (10:00→17:08)
[2020-08-02] MEDS: LISINOPRIL 20 MG TABLET PO SCH (10:29)
[2020-08-02] MEDS: amLODIPine BESYLATE 10 MG TABLET (FP) PO SCH (10:29)
[2020-08-02] MEDS: PANTOPRAZOLE 40 MG TABLET PO SCH (10:30)
--- NOTE | 2020-08-02 11:49 | PN ---
Progress Note, Physician History of Present Illness: stable no new issues wound looks good - Current Medication List Current Medications: Active Medications Acetaminophen (Tylenol -) 650 mg PO Q4H PRN PRN Reason: PAIN LEVEL 7 - 10 Amlodipine Besylate (Norvasc -) 10 mg PO DAILY [facility] Last Admin: 08/02/20 10:29 Dose: 10 mg Documented by: Atorvastatin Calcium (Lipitor -) 40 mg PO HS [facility] Last Admin: 08/01/20 21:15 Dose: 40 mg Documented by: Doxycycline Hyclate (Vibramycin -) 100 mg PO BID@1000,1800 [facility] Last Admin: 08/02/20 10:00 Dose: 100 mg Documented by: Heparin Sodium (Porcine) (Heparin -) 5,000 unit SQ TID [facility] Last Admin: 08/02/20 05:04 Dose: 5,000 unit Documented by: Piperacillin Sod/Tazobactam (Sod 3.375 gm/ Dextrose) 50 mls @ 100 mls/hr IVPB Q8H-IV [facility]; Protocol Last Admin: 08/02/20 10:30 Dose: 100 mls/hr Documented by: Insulin Aspart (Novolog Vial Sliding Scale -) 1 vial SQ ACHS [facility]; Protocol Last Admin: 08/02/20 06:27 Dose: Not Given Documented by: Insulin Detemir (Levemir Vial) 30 units SQ BID@0700,2200 [facility] Last Admin: 08/01/20 06:04 Dose: 30 units Documented by: Lisinopril (Prinivil) 20 mg PO DAILY [facility] Last Admin: 08/02/20 10:29 Dose: 20 mg Documented by: Pantoprazole Sodium (Protonix -) 40 mg PO DAILY [facility] Last Admin: 08/02/20 10:30 Dose: 40 mg Documented by: - Objective Vital Signs: Vital Signs Temperature 98.4 F 08/02/20 05:58 Pulse Rate 81 08/02/20 05:58 Respiratory Rate 20 08/02/20 05:58 Blood Pressure 97/53 L 08/02/20 05:58 O2 Sat by Pulse Oximetry (%) 97 08/02/20 05:58 Constitutional: Yes: No Distress, Calm Cardiovascular: Yes: S1, S2 Respiratory: Yes: Regular, CTA Bilaterally Gastrointestinal: Yes: Normal Bowel Sounds, Soft Musculoskeletal: Yes: WNL Extremities: Yes: Other Wound/Incision: Yes: Open to air Neurological: Yes: Alert, Oriented Psychiatric: Yes: Alert, Oriented Labs: CBC, BMP 08/02/20 06:14 08/02/20 06:14 INR, PTT INR 1.06 (0.83-1.09) 07/31/20 07:26 Assessment/Plan 54 y.o. M PMH uncontrolled diabetes mellitus, HTN presenting from Dr. Dyer's vascular office for management of right foot 4th digit wound. necrotic ulcer of the rt 4th toe dm hyperkalemia increased creatinine plan continue abx consider getting an mri official read pending of ango wound care rest as per the team
--- NOTE | 2020-08-02 12:47 | PN ---
Teaching Attending Note Name of Resident: Stefany Reagan ATTENDING PHYSICIAN STATEMENT I saw and evaluated the patient. I reviewed the resident's note and discussed the case with the resident. I agree with the resident's findings and plan as documented. SUBJECTIVE: pt seen and examined OBJECTIVE: Last Vital Signs Temp Pulse Resp BP Pulse Ox 98.4 F 81 20 97/53 L 97 08/02/20 05:58 10 05:58 10 05:58 08/02/20 05:58 08/02/20 05:58 GENERAL: The patient is awake, alert, and fully oriented, in no acute distress. LUNGS: Breath sounds equal, clear to auscultation bilaterally, no wheezes, no crackles, no accessory muscle use. HEART: Regular rate and rhythm, S1, S2 without murmur, rub or gallop. ABDOMEN: Soft, nontender, nondistended, normoactive bowel sounds, no guarding, no rebound, no hepatosplenomegaly, no masses. EXTREMITIES: 2+ pulses, warm, well-perfused, no edema. rt 4th toe, ulcerated NEUROLOGICAL: Cranial nerves II through XII grossly intact. Normal speech, gait not observed. CBCD WBC 6.6 K/mm3 (4.0-10.0) 08/02/20 06:14 RBC 3.77 M/mm3 (4.00-5.60) L 08/02/20 06:14 Hgb 10.7 GM/dL (11.7-16.9) L 08/02/20 06:14 Hct 32.8 % (35.4-49) L 08/02/20 06:14 MCV 87.0 fl (80-96) 08/02/20 06:14 MCHC 32.6 g/dl (32.0-35.9) 08/02/20 06:14 RDW 14.4 % (11.9-15.9) 08/02/20 06:14 Plt Count 161 K/MM3 (134-434) 08/02/20 06:14 MPV 10.3 fl (7.5-11.1) 08/02/20 06:14 CMP Sodium 141 mmol/L (136-145) 08/02/20 06:14 Potassium 4.9 mmol/L (3.5-5.1) 08/02/20 06:14 Chloride 109 mmol/L (98-107) H 08/02/20 06:14 Carbon Dioxide 26 mmol/L (21-32) 08/02/20 06:14 Anion Gap 6 MMOL/L (8-16) L 08/02/20 06:14 BUN 23.2 mg/dL (7-18) H 08/02/20 06:14 Creatinine 1.5 mg/dL (0.55-1.3) H 08/02/20 06:14 Calcium 8.7 mg/dL (8.5-10.1) 08/02/20 06:14 Total Bilirubin 0.4 mg/dL (0.2-1) 08/02/20 06:14 AST 15 U/L (15-37) 08/02/20 06:14 ALT 23 U/L (13-61) 08/02/20 06:14 Alkaline Phosphatase 48 U/L (45-117) 08/02/20 06:14 Total Protein 6.6 g/dl (6.4-8.2) 08/02/20 06:14 Albumin 3.5 g/dl (3.4-5.0) 08/02/20 06:14 Active Medications Acetaminophen (Tylenol -) 650 mg PO Q4H PRN PRN Reason: PAIN LEVEL 7 - 10 Amlodipine Besylate (Norvasc -) 10 mg PO DAILY [facility] Last Admin: 08/02/20 10:29 Dose: 10 mg Documented by: Atorvastatin Calcium (Lipitor -) 40 mg PO HS [facility] Last Admin: 08/01/20 21:15 Dose: 40 mg Documented by: Doxycycline Hyclate (Vibramycin -) 100 mg PO BID@1000,1800 [facility] Last Admin: 08/02/20 10:00 Dose: 100 mg Documented by: Heparin Sodium (Porcine) (Heparin -) 5,000 unit SQ TID [facility] Last Admin: 08/02/20 05:04 Dose: 5,000 unit Documented by: Piperacillin Sod/Tazobactam (Sod 3.375 gm/ Dextrose) 50 mls @ 100 mls/hr IVPB Q8H-IV [facility]; Protocol Last Admin: 08/02/20 10:30 Dose: 100 mls/hr Documented by: Insulin Aspart (Novolog Vial Sliding Scale -) 1 vial SQ ACHS [facility]; Protocol Last Admin: 08/02/20 06:27 Dose: Not Given Documented by: Insulin Detemir (Levemir Vial) 30 units SQ BID@0700,2200 [facility] Last Admin: 08/01/20 06:04 Dose: 30 units Documented by: Lisinopril (Prinivil) 20 mg PO DAILY [facility] Last Admin: 08/02/20 10:29 Dose: 20 mg Documented by: Pantoprazole Sodium (Protonix -) 40 mg PO DAILY [facility] Last Admin: 08/02/20 10:30 Dose: 40 mg Documented by: ASSESSMENT AND PLAN: 54 YO Man with uncontrolled diabetic nephropathy & neuropathy, HTN, & HLD who presented with rt foot diabetic wound no responding to outpatient therapy # Diabetic Foot Infection Continue oral docxy + IV zosyn CRP not elevated blood culture pending CTA runoff done pending reading MRI on 07/30 showing 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
--- NOTE | 2020-08-02 13:18 | PN ---
Progress Note, Physician History of Present Illness: Pt seen and examined at bedside. He is awake and alert. he denies shortness of breath. - Current Medication List Current Medications: Active Medications Acetaminophen (Tylenol -) 650 mg PO Q4H PRN PRN Reason: PAIN LEVEL 7 - 10 Amlodipine Besylate (Norvasc -) 10 mg PO DAILY [facility] Last Admin: 08/02/20 10:29 Dose: 10 mg Documented by: Atorvastatin Calcium (Lipitor -) 40 mg PO HS [facility] Last Admin: 08/01/20 21:15 Dose: 40 mg Documented by: Doxycycline Hyclate (Vibramycin -) 100 mg PO BID@1000,1800 [facility] Last Admin: 08/02/20 10:00 Dose: 100 mg Documented by: Heparin Sodium (Porcine) (Heparin -) 5,000 unit SQ TID [facility] Last Admin: 08/02/20 05:04 Dose: 5,000 unit Documented by: Piperacillin Sod/Tazobactam (Sod 3.375 gm/ Dextrose) 50 mls @ 100 mls/hr IVPB Q8H-IV [facility]; Protocol Last Admin: 08/02/20 10:30 Dose: 100 mls/hr Documented by: Insulin Aspart (Novolog Vial Sliding Scale -) 1 vial SQ ACHS [facility]; Protocol Last Admin: 08/02/20 06:27 Dose: Not Given Documented by: Insulin Detemir (Levemir Vial) 30 units SQ BID@0700,2200 [facility] Last Admin: 08/01/20 06:04 Dose: 30 units Documented by: Lisinopril (Prinivil) 20 mg PO DAILY [facility] Last Admin: 08/02/20 10:29 Dose: 20 mg Documented by: Pantoprazole Sodium (Protonix -) 40 mg PO DAILY [facility] Last Admin: 08/02/20 10:30 Dose: 40 mg Documented by: - Objective Vital Signs: Vital Signs Temperature 98.4 F 08/02/20 05:58 Pulse Rate 81 08/02/20 05:58 Respiratory Rate 20 08/02/20 05:58 Blood Pressure 97/53 L 08/02/20 05:58 O2 Sat by Pulse Oximetry (%) 97 08/02/20 05:58 Constitutional: Yes: Calm Eyes: Yes: Conjunctiva Clear HENT: Yes: Atraumatic Neck: Yes: Supple Cardiovascular: Yes: S1, S2 Respiratory: Yes: CTA Bilaterally Gastrointestinal: Yes: Soft Genitourinary: Yes: WNL Musculoskeletal: Yes: WNL Edema: No Neurological: Yes: Oriented Psychiatric: Yes: Oriented Labs: CBC, BMP 08/02/20 06:14 08/02/20 06:14 INR, PTT INR 1.06 (0.83-1.09) 07/31/20 07:26 Problem List - Problems (1) CKD (chronic kidney disease) Code(s): N18.9 - CHRONIC KIDNEY DISEASE, UNSPECIFIED (2) Diabetes mellitus Code(s): E11.9 - TYPE 2 DIABETES MELLITUS WITHOUT COMPLICATIONS (3) HTN (hypertension) Code(s): I10 - ESSENTIAL (PRIMARY) HYPERTENSION Assessment/Plan Current Medications Generic Name Dose Route Start Last Admin Trade Name Freq PRN Reason Stop Dose Admin Acetaminophen 650 mg 07/30/20 20:13 Tylenol - PO Q4H PRN PAIN LEVEL 7 - 10 Amlodipine Besylate 10 mg 07/31/20 10:00 08/02/20 10:29 Norvasc - PO 10 mg DAILY [facility] Administration Atorvastatin Calcium 40 mg 07/31/20 22:00 08/01/20 21:15 Lipitor - PO 40 mg HS [facility] Administration Doxycycline Hyclate 100 mg 07/31/20 18:00 08/02/20 10:00 Vibramycin - PO 100 mg BID@1000,1800 [facility] Administration Heparin Sodium (Porcine) 5,000 unit 07/31/20 06:00 08/02/20 05:04 Heparin - SQ 5,000 unit TID [facility] Administration Piperacillin Sod/Tazobactam 50 mls @ 100 mls/hr 07/31/20 11:30 08/02/20 10:30 Sod 3.375 gm/ Dextrose IVPB 100 mls/hr Q8H-IV [facility] Administration Protocol Insulin Aspart 1 vial 07/30/20 22:00 08/02/20 06:27 Novolog Vial Sliding Scale - SQ Not Given ACHS [facility] Protocol Insulin Detemir 30 units 07/31/20 22:00 08/01/20 06:04 Levemir Vial SQ 30 units BID@0700,2200 [facility] Administration Lisinopril 20 mg 07/31/20 10:00 08/02/20 10:29 Prinivil PO 20 mg DAILY [facility] Administration Pantoprazole Sodium 40 mg 07/31/20 10:00 08/02/20 10:30 Protonix - PO 40 mg DAILY [facility] Administration Impression 1. CKD 2. HTN 3. DM 4. lower ext wound Plan - follow up cta report - monitor renal function - cont rachel for now - long standing uncontrolled DM can contribute to CKD - cont wound care Thank You Dr Ibarra
--- NOTE | 2020-08-02 14:25 | PN ---
Physical Exam: SUBJECTIVE: Patient seen and examined. OBJECTIVE: Vital Signs Period Temp Pulse Resp BP Sys/Chávez Pulse Ox Last 24 Hr 98.3 F-98.5 F 81-102 18-99 97-145/53-68 97-99 GENERAL: The patient is awake, alert, and fully oriented, in no acute distress. LUNGS: Breath sounds equal, clear to auscultation bilaterally, no wheezes, no crackles, no accessory muscle use. HEART: Regular rate and rhythm, S1, S2 without murmur, rub or gallop. ABDOMEN: Soft, nontender, nondistended, normoactive bowel sounds, no guarding, no rebound, no hepatosplenomegaly, no masses. EXTREMITIES: 2+ pulses, warm, well-perfused, no edema. rt 4th toe, ulcerated NEUROLOGICAL: Cranial nerves II through XII grossly intact. Normal speech, gait not observed. Laboratory Results - last 24 hr 08/01/20 08/01/20 08/02/20 16:54 21:14 06:14 WBC 6.6 RBC 3.77 L Hgb 10.7 L Hct 32.8 L MCV 87.0 MCH 28.4 MCHC 32.6 RDW 14.4 Plt Count 161 MPV 10.3 Absolute Neuts (auto) 4.2 Neutrophils % 63.4 Lymphocytes % 27.3 Monocytes % 6.7 Eosinophils % 2.0 Basophils % 0.6 Nucleated RBC % 0 Sodium Potassium Chloride Carbon Dioxide Anion Gap BUN Creatinine Est GFR (CKD-EPI)AfAm Est GFR (CKD-EPI)NonAf POC Glucometer 270 256 Random Glucose Calcium Total Bilirubin AST ALT Alkaline Phosphatase Total Protein Albumin 08/02/20 08/02/20 08/02/20 06:14 06:26 11:32 WBC RBC Hgb Hct MCV MCH MCHC RDW Plt Count MPV Absolute Neuts (auto) Neutrophils % Lymphocytes % Monocytes % Eosinophils % Basophils % Nucleated RBC % Sodium 141 Potassium 4.9 Chloride 109 H Carbon Dioxide 26 Anion Gap 6 L BUN 23.2 H Creatinine 1.5 H Est GFR (CKD-EPI)AfAm 59.88 Est GFR (CKD-EPI)NonAf 51.67 POC Glucometer 120 190 Random Glucose 133 H Calcium 8.7 Total Bilirubin 0.4 AST 15 ALT 23 Alkaline Phosphatase 48 Total Protein 6.6 Albumin 3.5 Active Medications Generic Name Dose Route Start Last Admin Trade Name Freq PRN Reason Stop Dose Admin Acetaminophen 650 mg 07/30/20 20:13 Tylenol - PO Q4H PRN PAIN LEVEL 7 - 10 Amlodipine Besylate 10 mg 07/31/20 10:00 08/02/20 10:29 Norvasc - PO 10 mg DAILY [facility] Administration Atorvastatin Calcium 40 mg 07/31/20 22:00 08/01/20 21:15 Lipitor - PO 40 mg HS [facility] Administration Doxycycline Hyclate 100 mg 07/31/20 18:00 08/02/20 10:00 Vibramycin - PO 100 mg BID@1000,1800 [facility] Administration Heparin Sodium (Porcine) 5,000 unit 07/31/20 06:00 08/02/20 05:04 Heparin - SQ 5,000 unit TID [facility] Administration Piperacillin Sod/Tazobactam 50 mls @ 100 mls/hr 07/31/20 11:30 08/02/20 10:30 Sod 3.375 gm/ Dextrose IVPB 100 mls/hr Q8H-IV [facility] Administration Protocol Insulin Aspart 1 vial 07/30/20 22:00 08/02/20 13:57 Novolog Vial Sliding Scale - SQ Not Given ACHS [facility] Protocol Insulin Detemir 30 units 07/31/20 22:00 08/01/20 06:04 Levemir Vial SQ 30 units BID@0700,2200 [facility] Administration Lisinopril 20 mg 07/31/20 10:00 08/02/20 10:29 Prinivil PO 20 mg DAILY [facility] Administration Pantoprazole Sodium 40 mg 07/31/20 10:00 08/02/20 10:30 Protonix - PO 40 mg DAILY [facility] Administration ASSESSMENT/PLAN: Pt is a 54 year old M with PMHx of uncontrolled diabetic nephropathy and neuropathy, HTN, HLD presenting with R foot wound admitted for diabetic foot infection. 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 NPO for angio pending CTA read ATTENDING PHYSICIAN STATEMENT I saw and evaluated the patient. I reviewed the resident's note and discussed the case with the resident. I agree with the resident's findings and plan as documented. SUBJECTIVE: OBJECTIVE: ASSESSMENT AND PLAN:
[2020-08-02] MEDS ORDERED: INSULIN (NOVOLOG) ASPART 100 UNITS/ML 10ML VIAL ONE (21:05)
[2020-08-02] MEDS: INSULIN (LEVEMIR) 100 UNITS/ML UNITS SQ SCH (21:33)
[2020-08-02] MEDS: ATORVASTATIN CA 20 MG TABLET (FP) PO SCH (21:40)
[2020-08-03] MEDS ORDERED: DEXTROSE 5%-WATER - 50 ML IVPB ONE ×3 (01:04→17:21)
[2020-08-03] MEDS ORDERED: PIPERACILLIN/TAZOBACTAM 3.375 GM VIAL IVPB ONE ×3 (01:04→17:21)
[2020-08-03] MEDS: PIPERACILLIN/TAZOB 3.375 GM 3.375 GM in DEXTROSE 5%-WATER - 50 ML IVPB SCH ×3 (01:21→17:27)
[2020-08-03] MEDS: INSULIN (LEVEMIR) 100 UNITS/ML UNITS SQ SCH ×2 (06:31→21:28)
[2020-08-03] MEDS: HEPARIN NA (PORCINE) 5,000 UNITS/ML 1ML VIAL SQ SCH ×3 (06:31→21:27)
[2020-08-03] MEDS: INSULIN SLIDING SCALE (NOVOLOG) 1 VIAL SQ SCH ×4 (06:31→21:29)
[2020-08-03] MEDS ORDERED: PT OWN MED DRAWER 7, Y5N ONE ×2 (06:37→09:21)
[2020-08-03 08:43] LABS: HEMATOCRIT 34.1 % (35.4-49); HEMOGLOBIN 11.2 GM/dL (11.7-16.9); MCH 28.8 pg (25.7-33.7); MCHC 32.7 g/dl (32.0-35.9); MEAN CELL VOLUME 88.1 fl (80-96); MEAN PLT VOLUME 10.7 fl (7.5-11.1); PLATELET COUNT 157 K/MM3 (134-434); RBC 3.87 M/mm3 (4.00-5.60); RDW 14.5 % (11.9-15.9); WHITE BLOOD COUNT 4.6 K/mm3 (4.0-10.0)
[2020-08-03 08:48] LABS: BLOOD UREA NITROGEN 19.3 mg/dL (7-18); CALCIUM 8.8 mg/dL (8.5-10.1); CREATININE 1.3 mg/dL (0.55-1.3); MAGNESIUM 2.3 mg/dL (1.8-2.4); PHOSPHOROUS 3.5 mg/dL (2.5-4.9); POTASSIUM 4.5 mmol/L (3.5-5.1)
[2020-08-03] MEDS: LISINOPRIL 20 MG TABLET PO SCH (09:27)
[2020-08-03] MEDS: amLODIPine BESYLATE 10 MG TABLET (FP) PO SCH (09:27)
[2020-08-03] MEDS: PANTOPRAZOLE 40 MG TABLET PO SCH (09:28)
[2020-08-03] MEDS: DOXYCYCLINE HYCLATE 100 MG CAPSULE PO SCH ×2 (09:28→17:27)
[2020-08-03] MEDS ORDERED: INSULIN (NOVOLOG) ASPART 100 UNITS/ML 10ML VIAL ONE (11:12)
--- NOTE | 2020-08-03 12:25 | PN ---
Progress Note, Physician History of Present Illness: stable no new issues - Current Medication List Current Medications: Active Medications Acetaminophen (Tylenol -) 650 mg PO Q4H PRN PRN Reason: PAIN LEVEL 7 - 10 Amlodipine Besylate (Norvasc -) 10 mg PO DAILY [facility] Last Admin: 08/03/20 09:27 Dose: 10 mg Documented by: Atorvastatin Calcium (Lipitor -) 40 mg PO HS [facility] Last Admin: 08/02/20 21:40 Dose: 40 mg Documented by: Doxycycline Hyclate (Vibramycin -) 100 mg PO BID@1000,1800 [facility] Last Admin: 08/03/20 09:28 Dose: 100 mg Documented by: Heparin Sodium (Porcine) (Heparin -) 5,000 unit SQ TID [facility] Last Admin: 08/03/20 06:31 Dose: 5,000 unit Documented by: Piperacillin Sod/Tazobactam (Sod 3.375 gm/ Dextrose) 50 mls @ 100 mls/hr IVPB Q8H-IV [facility]; Protocol Last Admin: 08/03/20 09:28 Dose: 100 mls/hr Documented by: Insulin Aspart (Novolog Vial Sliding Scale -) 1 vial SQ ACHS [facility]; Protocol Last Admin: 08/03/20 11:22 Dose: 6 units Documented by: Insulin Detemir (Levemir Vial) 30 units SQ BID@0700,2200 [facility] Last Admin: 08/03/20 06:31 Dose: 30 units Documented by: Lisinopril (Prinivil) 20 mg PO DAILY [facility] Last Admin: 08/03/20 09:27 Dose: 20 mg Documented by: Pantoprazole Sodium (Protonix -) 40 mg PO DAILY [facility] Last Admin: 08/03/20 09:28 Dose: 40 mg Documented by: - Objective Vital Signs: Vital Signs Temperature 97.7 F 08/03/20 06:00 Pulse Rate 80 08/03/20 06:00 Respiratory Rate 20 08/03/20 06:00 Blood Pressure 107/66 08/03/20 06:00 O2 Sat by Pulse Oximetry (%) 98 08/03/20 06:00 Constitutional: Yes: No Distress, Calm Cardiovascular: Yes: S1, S2 Respiratory: Yes: Regular, CTA Bilaterally Gastrointestinal: Yes: Normal Bowel Sounds, Soft Musculoskeletal: Yes: WNL Extremities: Yes: Other Wound/Incision: Yes: Dressing Dry and Intact Neurological: Yes: Alert, Oriented Psychiatric: Yes: Alert, Oriented Labs: CBC, BMP 08/03/20 07:25 08/03/20 07:25 INR, PTT INR 1.06 (0.83-1.09) 07/31/20 07:26 Assessment/Plan 54 y.o. M PMH uncontrolled diabetes mellitus, HTN presenting from Dr. Dyer's vascular office for management of right foot 4th digit wound. necrotic ulcer of the rt 4th toe dm hyperkalemia increased creatinine bone marrow edema plan continue abx mri results noted will d/w vascular
--- NOTE | 2020-08-03 12:45 | SPA.PREOP ---
- PRE-OP NOTE Dx: Right 4th toe gangrene Planned Procedure: angiogram, possible angioplasty/stent insertion Surgeon: Dr. Dyer Last Vital Signs Temp Pulse Resp BP Pulse Ox 97.7 F 80 20 107/66 98 08/03/20 06:00 08/03/20 06:00 08/03/20 06:00 08/03/20 06:00 08/03/20 06:00 Lab Results WBC 4.6 K/mm3 (4.0-10.0) 08/03/20 07:25 RBC 3.87 M/mm3 (4.00-5.60) L 08/03/20 07:25 Hgb 11.2 GM/dL (11.7-16.9) L 08/03/20 07:25 Hct 34.1 % (35.4-49) L 08/03/20 07:25 MCV 88.1 fl (80-96) 08/03/20 07:25 MCHC 32.7 g/dl (32.0-35.9) 08/03/20 07:25 RDW 14.5 % (11.9-15.9) 08/03/20 07:25 Plt Count 157 K/MM3 (134-434) 08/03/20 07:25 INR 1.06 (0.83-1.09) 07/31/20 07:26 Sodium 139 mmol/L (136-145) 08/03/20 07:25 Potassium 4.5 mmol/L (3.5-5.1) 08/03/20 07:25 Chloride 106 mmol/L (98-107) 08/03/20 07:25 Carbon Dioxide 26 mmol/L (21-32) 08/03/20 07:25 Anion Gap 7 MMOL/L (8-16) L 08/03/20 07:25 BUN 19.3 mg/dL (7-18) H 08/03/20 07:25 Creatinine 1.3 mg/dL (0.55-1.3) 08/03/20 07:25 Random Glucose 215 mg/dL (74-106) H 08/03/20 07:25 Calcium 8.8 mg/dL (8.5-10.1) 08/03/20 07:25 - ASSESSMENT/PLAN 54 yo male with Right foot-4th toe gangrene. Angiogram/possible angioplasty/stent 10/7 1. Make NPO after midnight except po meds 2. GI/DVT PPX 3. Medical optimization / clearance 4. Consent to be obtained by surgeon after risks, benefits and alternatives discussed with patient and or Health Care Proxy.
--- NOTE | 2020-08-03 14:01 | PN ---
Progress Note, Physician History of Present Illness: Pt seen and examined at bedside. He is awake and alert. He denies shortness of breath. - Current Medication List Current Medications: Active Medications Acetaminophen (Tylenol -) 650 mg PO Q4H PRN PRN Reason: PAIN LEVEL 7 - 10 Amlodipine Besylate (Norvasc -) 10 mg PO DAILY [facility] Last Admin: 08/03/20 09:27 Dose: 10 mg Documented by: Atorvastatin Calcium (Lipitor -) 40 mg PO HS [facility] Last Admin: 08/02/20 21:40 Dose: 40 mg Documented by: Doxycycline Hyclate (Vibramycin -) 100 mg PO BID@1000,1800 [facility] Last Admin: 08/03/20 09:28 Dose: 100 mg Documented by: Heparin Sodium (Porcine) (Heparin -) 5,000 unit SQ TID [facility] Last Admin: 08/03/20 06:31 Dose: 5,000 unit Documented by: Piperacillin Sod/Tazobactam (Sod 3.375 gm/ Dextrose) 50 mls @ 100 mls/hr IVPB Q8H-IV [facility]; Protocol Last Admin: 08/03/20 09:28 Dose: 100 mls/hr Documented by: Insulin Aspart (Novolog Vial Sliding Scale -) 1 vial SQ ACHS [facility]; Protocol Last Admin: 08/03/20 11:22 Dose: 6 units Documented by: Insulin Detemir (Levemir Vial) 30 units SQ BID@0700,2200 [facility] Last Admin: 08/03/20 06:31 Dose: 30 units Documented by: Lisinopril (Prinivil) 20 mg PO DAILY [facility] Last Admin: 08/03/20 09:27 Dose: 20 mg Documented by: Pantoprazole Sodium (Protonix -) 40 mg PO DAILY [facility] Last Admin: 08/03/20 09:28 Dose: 40 mg Documented by: - Objective Vital Signs: Vital Signs Temperature 98.3 F 08/03/20 08:55 Pulse Rate 95 H 08/03/20 08:55 Respiratory Rate 20 08/03/20 08:55 Blood Pressure 134/77 08/03/20 08:55 O2 Sat by Pulse Oximetry (%) 96 08/03/20 08:55 Constitutional: Yes: Calm Eyes: Yes: Conjunctiva Clear HENT: Yes: Atraumatic Neck: Yes: Supple Cardiovascular: Yes: S1, S2 Respiratory: Yes: CTA Bilaterally Gastrointestinal: Yes: Soft Genitourinary: Yes: WNL Musculoskeletal: Yes: WNL Edema: No Neurological: Yes: Oriented Psychiatric: Yes: Oriented Labs: CBC, BMP 08/03/20 07:25 08/03/20 07:25 INR, PTT INR 1.06 (0.83-1.09) 07/31/20 07:26 Problem List - Problems (1) CKD (chronic kidney disease) Code(s): N18.9 - CHRONIC KIDNEY DISEASE, UNSPECIFIED (2) Diabetes mellitus Code(s): E11.9 - TYPE 2 DIABETES MELLITUS WITHOUT COMPLICATIONS (3) HTN (hypertension) Code(s): I10 - ESSENTIAL (PRIMARY) HYPERTENSION Assessment/Plan Current Medications Generic Name Dose Route Start Last Admin Trade Name Freq PRN Reason Stop Dose Admin Acetaminophen 650 mg 07/30/20 20:13 Tylenol - PO Q4H PRN PAIN LEVEL 7 - 10 Amlodipine Besylate 10 mg 07/31/20 10:00 08/03/20 09:27 Norvasc - PO 10 mg DAILY [facility] Administration Atorvastatin Calcium 40 mg 07/31/20 22:00 08/02/20 21:40 Lipitor - PO 40 mg HS [facility] Administration Doxycycline Hyclate 100 mg 07/31/20 18:00 08/03/20 09:28 Vibramycin - PO 100 mg BID@1000,1800 [facility] Administration Heparin Sodium (Porcine) 5,000 unit 07/31/20 06:00 08/03/20 06:31 Heparin - SQ 5,000 unit TID [facility] Administration Piperacillin Sod/Tazobactam 50 mls @ 100 mls/hr 07/31/20 11:30 08/03/20 09:28 Sod 3.375 gm/ Dextrose IVPB 100 mls/hr Q8H-IV [facility] Protocol Insulin Aspart 1 vial 07/30/20 22:00 08/03/20 11:22 Novolog Vial Sliding Scale - SQ 6 units ACHS [facility] Protocol Insulin Detemir 30 units 07/31/20 22:00 08/03/20 06:31 Levemir Vial SQ 30 units BID@0700,2200 [facility] Administration Lisinopril 20 mg 07/31/20 10:00 08/03/20 09:27 Prinivil PO 20 mg DAILY [facility] Administration Pantoprazole Sodium 40 mg 07/31/20 10:00 08/03/20 09:28 Protonix - PO 40 mg DAILY [facility] Administration Impression 1. CKD 2. HTN 3. DM 4. lower ext wound Plan - renal function improving - pt going for angio tomorrow - start fluids tonight - cont rachel for now - long standing uncontrolled DM can contribute to CKD - cont wound care Thank You Dr Ibarra
--- NOTE | 2020-08-03 14:24 | PN ---
Physical Exam: SUBJECTIVE: Patient seen and examined. No acute complaints at this time. OBJECTIVE: Vital Signs Period Temp Pulse Resp BP Sys/Chávez Pulse Ox Last 24 Hr 97.7 F-98.3 F 80-95 20-20 107-134/66-77 96-98 GENERAL: The patient is awake, alert, and fully oriented, in no acute distress. LUNGS: Breath sounds equal, clear to auscultation bilaterally, no wheezes, no crackles, no accessory muscle use. HEART: Regular rate and rhythm, S1, S2 without murmur, rub or gallop. ABDOMEN: Soft, nontender, nondistended, normoactive bowel sounds, no guarding, no rebound, no hepatosplenomegaly, no masses. EXTREMITIES: 2+ pulses, warm, well-perfused, no edema. rt 4th toe, ulcerated NEUROLOGICAL: Cranial nerves II through XII grossly intact. Normal speech, gait not observed. Laboratory Results - last 24 hr 08/02/20 08/02/20 08/03/20 17:11 21:30 06:29 WBC RBC Hgb Hct MCV MCH MCHC RDW Plt Count MPV Sodium Potassium Chloride Carbon Dioxide Anion Gap BUN Creatinine Est GFR (CKD-EPI)AfAm Est GFR (CKD-EPI)NonAf POC Glucometer 187 233 187 Random Glucose Calcium Phosphorus Magnesium 08/03/20 08/03/20 08/03/20 07:25 07:25 11:20 WBC 4.6 RBC 3.87 L Hgb 11.2 L Hct 34.1 L MCV 88.1 MCH 28.8 MCHC 32.7 RDW 14.5 Plt Count 157 MPV 10.7 Sodium 139 Potassium 4.5 Chloride 106 Carbon Dioxide 26 Anion Gap 7 L BUN 19.3 H Creatinine 1.3 Est GFR (CKD-EPI)AfAm 71.19 Est GFR (CKD-EPI)NonAf 61.43 POC Glucometer 258 Random Glucose 215 H Calcium 8.8 Phosphorus 3.5 Magnesium 2.3 Active Medications Generic Name Dose Route Start Last Admin Trade Name Freq PRN Reason Stop Dose Admin Acetaminophen 650 mg 07/30/20 20:13 Tylenol - PO Q4H PRN PAIN LEVEL 7 - 10 Amlodipine Besylate 10 mg 07/31/20 10:00 08/03/20 09:27 Norvasc - PO 10 mg DAILY [facility] Administration Atorvastatin Calcium 40 mg 07/31/20 22:00 08/02/20 21:40 Lipitor - PO 40 mg HS [facility] Administration Doxycycline Hyclate 100 mg 07/31/20 18:00 08/03/20 09:28 Vibramycin - PO 100 mg BID@1000,1800 [facility] Administration Heparin Sodium (Porcine) 5,000 unit 07/31/20 06:00 08/03/20 06:31 Heparin - SQ 5,000 unit TID [facility] Administration Piperacillin Sod/Tazobactam 50 mls @ 100 mls/hr 07/31/20 11:30 08/03/20 09:28 Sod 3.375 gm/ Dextrose IVPB 100 mls/hr Q8H-IV [facility] Administration Protocol Sodium Chloride 1,000 mls @ 75 mls/hr 08/03/20 22:00 Normal Saline - IV ASDIR [facility] Insulin Aspart 1 vial 07/30/20 22:00 08/03/20 11:22 Novolog Vial Sliding Scale - SQ 6 units ACHS [facility] Protocol Insulin Detemir 30 units 07/31/20 22:00 08/03/20 06:31 Levemir Vial SQ 30 units BID@0700,2200 [facility] Administration Lisinopril 20 mg 07/31/20 10:00 08/03/20 09:27 Prinivil PO 20 mg DAILY [facility] Administration Pantoprazole Sodium 40 mg 07/31/20 10:00 08/03/20 09:28 Protonix - PO 40 mg DAILY [facility] Administration ASSESSMENT/PLAN: Pt is a 54 year old M with PMHx of uncontrolled diabetic nephropathy and neuropathy, HTN, HLD presenting with R foot wound admitted for diabetic foot infection. #R diabetic foot infection -on IV zosyn + PO doxy -CTA reviewed -Blood cx pending -MRI reviewed -vascular surgery consulted; angio tomorrow AM -podiatry consulted; possible amputation R 4th toe #DM uncontrolled -SSI, BGM, levemir 30u BID #CKD -Cr 1.3; seems to be near baseline, 1.6 in 06/2020 -Renal consulted; continue lisinopril #Hx HTN Continue lisinopril #Hx of HLD Continue crestor FEN No standing fluids Monitor electrolytes NPO after midnight for angio PPx Heparin SQ Dispo Admitted to med surg. NPO after midnight for angio. ATTENDING PHYSICIAN STATEMENT I saw and evaluated the patient. I reviewed the resident's note and discussed the case with the resident. I agree with the resident's findings and plan as documented. SUBJECTIVE: OBJECTIVE: ASSESSMENT AND PLAN:
--- NOTE | 2020-08-03 16:18 | PN ---
Progress Note (short form) - Note Progress Note: Podiatry F/U: Seen/evaluated at bedside, at bedside, NAD. Pain is intermittent in nature and controlled. Denies F/V/N/C/SOB/CP. AFebrile. BRITTNEY: R foot: Dorsalis pedis 1/4, posterior tibial 1/4, TG wnl. CFT brisk to digits 1,2,3,5. CFT absent to the fourth digit. There is dry gangrenous changes to the distal half of the fourth digit. There is no purulent drainage, no fluctuance, no streaking ascending cellulitis, no signs of active infection. Mild pedal edema. Imp: 54 year old poorly controlled diabetic male with right fourth digit dry gangrene 1. IV abx per ID 2. Continue local care 3. For RLE angiogram with Dr. Dyer tomorrow 4. Will follow
--- NOTE | 2020-08-03 18:13 | PN ---
Teaching Attending Note Name of Resident: Val Bartholomew ATTENDING PHYSICIAN STATEMENT I saw and evaluated the patient. I reviewed the resident's note and discussed the case with the resident. I agree with the resident's findings and plan as documented. SUBJECTIVE: Feels well, no complaints except for R 4th toe tenderness. No fever/chills/SOB. OBJECTIVE: Afebrile, Hemodynamically Stable. Last Vital Signs Temp Pulse Resp BP Pulse Ox 98.5 F 94 H 18 123/63 96 08/03/20 14:00 08/03/20 14:00 08/03/20 14:00 08/03/20 14:00 08/03/20 08:55 HEENT - Atramatic, normocephalic. Heart - S1, S2, RRR Lungs - clear to auscultation Abdomen - Soft, non-tender. Bowel Sounds normal Extremities - R 4th toe gangrene, no ascending cellulitis. Cool peripheral LEs. Neuro - AAO x 3. Tone/Power normal. Laboratory Results - last 24 hr 08/02/20 08/03/20 08/03/20 21:30 06:29 07:25 WBC 4.6 RBC 3.87 L Hgb 11.2 L Hct 34.1 L MCV 88.1 MCH 28.8 MCHC 32.7 RDW 14.5 Plt Count 157 MPV 10.7 Sodium Potassium Chloride Carbon Dioxide Anion Gap BUN Creatinine Est GFR (CKD-EPI)AfAm Est GFR (CKD-EPI)NonAf POC Glucometer 233 187 Random Glucose Calcium Phosphorus Magnesium 08/03/20 08/03/20 08/03/20 07:25 11:20 16:51 WBC RBC Hgb Hct MCV MCH MCHC RDW Plt Count MPV Sodium 139 Potassium 4.5 Chloride 106 Carbon Dioxide 26 Anion Gap 7 L BUN 19.3 H Creatinine 1.3 Est GFR (CKD-EPI)AfAm 71.19 Est GFR (CKD-EPI)NonAf 61.43 POC Glucometer 258 251 Random Glucose 215 H Calcium 8.8 Phosphorus 3.5 Magnesium 2.3 Current Medications Generic Name Dose Route Start Last Admin Trade Name Freq PRN Reason Stop Dose Admin Acetaminophen 650 mg 07/30/20 20:13 Tylenol - PO Q4H PRN PAIN LEVEL 7 - 10 Amlodipine Besylate 10 mg 07/31/20 10:00 08/03/20 09:27 Norvasc - PO 10 mg DAILY [facility] Administration Atorvastatin Calcium 40 mg 07/31/20 22:00 08/02/20 21:40 Lipitor - PO 40 mg HS [facility] Administration Doxycycline Hyclate 100 mg 07/31/20 18:00 08/03/20 17:27 Vibramycin - PO 100 mg BID@1000,1800 [facility] Administration Heparin Sodium (Porcine) 5,000 unit 07/31/20 06:00 08/03/20 14:15 Heparin - SQ 5,000 unit TID [facility] Administration Piperacillin Sod/Tazobactam 50 mls @ 100 mls/hr 07/31/20 11:30 08/03/20 17:27 Sod 3.375 gm/ Dextrose IVPB 100 mls/hr Q8H-IV [facility] Administration Protocol Sodium Chloride 1,000 mls @ 75 mls/hr 08/03/20 22:00 Normal Saline - IV ASDIR [facility] Insulin Aspart 1 vial 07/30/20 22:00 08/03/20 16:53 Novolog Vial Sliding Scale - SQ 6 units ACHS [facility] Administration Protocol Insulin Detemir 30 units 07/31/20 22:00 08/03/20 06:31 Levemir Vial SQ 30 units BID@0700,2200 [facility] Administration Lisinopril 20 mg 07/31/20 10:00 08/03/20 09:27 Prinivil PO 20 mg DAILY [facility] Administration Pantoprazole Sodium 40 mg 07/31/20 10:00 08/03/20 09:28 Protonix - PO 40 mg DAILY [facility] Administration Home Medications Medication Instructions Recorded Amlodipine Besylate [Norvasc -] 10 mg PO DAILY 07/30/20 Ammonium Lactate Cream [Lac-Hydrin 1 applic TP DAILY PRN 07/30/20 12% *Cream*] Aspirin [ASA -] 81 mg PO DAILY 07/30/20 Basaglar Kwikpen U-100 35 unit SQ HS 07/30/20 Diflorasone Diacetate/Emoll 30 gm TP DAILY PRN 07/30/20 [Apexicon E 0.05% Cream] Glipizide 10 mg PO BID 07/30/20 Lansoprazole [Prevacid] 30 mg PO DAILY 07/30/20 Lisinopril 20 mg PO DAILY 07/30/20 Metformin HCl [Glucophage] 1,000 mg PO BID 07/30/20 Simvastatin 40 mg PO DAILY 07/30/20 Sitagliptin Phosphate [Januvia] 100 mg PO DAILY 07/30/20 ASSESSMENT AND PLAN: 54 year old male with DM 2, Diabetic Nephropathy and Neuropathy, HTN, HLD, presentes with R 4th toe ulcer/discoloration. 1. 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 Afebrile, Hemodynamically Stable, Blood Cx negative Continue Doxycycline/Zosyn as per ID. Patient and Podiatry to decide re: possible amputation 2. BRICE on CKD 3 - resolved. Creat at baseline. 3. DM 2 - Metformin, Januvia held. Maintain on Levemir/Novolog sliding scale. 4. HTN - Continue Norvasc, Lisinopril. 5. HLD - Continue Lipitor. DVT Px - Heparin SQ
[2020-08-03] MEDS: SODIUM CHLORIDE 1,000 ML IV SCH (21:30)
[2020-08-03] MEDS: ATORVASTATIN CA 20 MG TABLET (FP) PO SCH (21:30)
[2020-08-04] MEDS ORDERED: PIPERACILLIN/TAZOBACTAM 3.375 GM VIAL IVPB ONE ×3 (01:12→18:16)
[2020-08-04] MEDS ORDERED: PT OWN MED DRAWER 7, Y5N ONE (01:12)
[2020-08-04] MEDS ORDERED: DEXTROSE 5%-WATER - 50 ML IVPB ONE ×3 (01:13→18:16)
[2020-08-04] MEDS: PIPERACILLIN/TAZOB 3.375 GM 3.375 GM in DEXTROSE 5%-WATER - 50 ML IVPB SCH ×3 (01:22→18:21)
[2020-08-04] MEDS: INSULIN (LEVEMIR) 100 UNITS/ML UNITS SQ SCH ×2 (06:05→21:55)
[2020-08-04] MEDS: INSULIN SLIDING SCALE (NOVOLOG) 1 VIAL SQ SCH ×4 (06:05→21:57)
--- NOTE | 2020-08-04 08:05 | PN ---
Progress Note, Physician History of Present Illness: stable no new issues plan for angiogram/angioplasty podiatry not noted - Current Medication List Current Medications: Active Medications Acetaminophen (Tylenol -) 650 mg PO Q4H PRN PRN Reason: PAIN LEVEL 7 - 10 Amlodipine Besylate (Norvasc -) 10 mg PO DAILY [facility] Last Admin: 08/03/20 09:27 Dose: 10 mg Documented by: Atorvastatin Calcium (Lipitor -) 40 mg PO HS [facility] Last Admin: 08/03/20 21:30 Dose: 40 mg Documented by: Doxycycline Hyclate (Vibramycin -) 100 mg PO BID@1000,1800 [facility] Last Admin: 08/03/20 17:27 Dose: 100 mg Documented by: Heparin Sodium (Porcine) (Heparin -) 5,000 unit SQ TID [facility] Last Admin: 08/03/20 21:27 Dose: Not Given Documented by: Piperacillin Sod/Tazobactam (Sod 3.375 gm/ Dextrose) 50 mls @ 100 mls/hr IVPB Q8H-IV [facility]; Protocol Last Admin: 08/04/20 01:22 Dose: 100 mls/hr Documented by: Sodium Chloride (Normal Saline -) 1,000 mls @ 75 mls/hr IV ASDIR [facility] Last Admin: 08/03/20 21:30 Dose: 75 mls/hr Documented by: Insulin Aspart (Novolog Vial Sliding Scale -) 1 vial SQ ACHS [facility]; Protocol Last Admin: 08/04/20 06:05 Dose: Not Given Documented by: Insulin Detemir (Levemir Vial) 30 units SQ BID@0700,2200 [facility] Last Admin: 08/04/20 06:05 Dose: Not Given Documented by: Lisinopril (Prinivil) 20 mg PO DAILY [facility] Last Admin: 08/03/20 09:27 Dose: 20 mg Documented by: Pantoprazole Sodium (Protonix -) 40 mg PO DAILY [facility] Last Admin: 08/03/20 09:28 Dose: 40 mg Documented by: - Objective Vital Signs: Vital Signs Temperature 98.2 F 08/04/20 06:00 Pulse Rate 84 08/04/20 06:00 Respiratory Rate 20 08/04/20 06:00 Blood Pressure 130/76 08/04/20 06:00 O2 Sat by Pulse Oximetry (%) 98 08/04/20 06:00 Constitutional: Yes: No Distress, Calm Cardiovascular: Yes: S1, S2 Respiratory: Yes: Regular, CTA Bilaterally Gastrointestinal: Yes: Normal Bowel Sounds, Soft Musculoskeletal: Yes: WNL Extremities: Yes: Other Wound/Incision: Yes: Dressing Dry and Intact Neurological: Yes: Alert, Oriented Psychiatric: Yes: Alert, Oriented Labs: INR, PTT INR 1.06 (0.83-1.09) 07/31/20 07:26 Assessment/Plan 54 y.o. M PMH uncontrolled diabetes mellitus, HTN presenting from Dr. Dyer's vascular office for management of right foot 4th digit wound. necrotic ulcer of the rt 4th toe dm hyperkalemia increased creatinine bone marrow edema plan continue abx await for vascular podiatry note noted rest as per the team cellulitis improving
[2020-08-04 08:25] LABS: BLOOD UREA NITROGEN 16.2 mg/dL (7-18); CALCIUM 9.2 mg/dL (8.5-10.1); CREATININE 1.3 mg/dL (0.55-1.3); MAGNESIUM 2.3 mg/dL (1.8-2.4); PHOSPHOROUS 4.3 mg/dL (2.5-4.9); POTASSIUM 3.7 mmol/L (3.5-5.1)
[2020-08-04 08:32] LABS: HEMATOCRIT 36.1 % (35.4-49); HEMOGLOBIN 11.6 GM/dL (11.7-16.9); MCH 28.5 pg (25.7-33.7); MCHC 32.2 g/dl (32.0-35.9); MEAN CELL VOLUME 88.7 fl (80-96); MEAN PLT VOLUME 10.5 fl (7.5-11.1); PLATELET COUNT 164 K/MM3 (134-434); RBC 4.06 M/mm3 (4.00-5.60); RDW 14.4 % (11.9-15.9); WHITE BLOOD COUNT 5.1 K/mm3 (4.0-10.0)
[2020-08-04] MEDS: DOXYCYCLINE HYCLATE 100 MG CAPSULE PO SCH ×2 (10:16→18:21)
[2020-08-04] MEDS: LISINOPRIL 20 MG TABLET PO SCH (10:16)
[2020-08-04] MEDS: amLODIPine BESYLATE 10 MG TABLET (FP) PO SCH (10:16)
[2020-08-04] MEDS: PANTOPRAZOLE 40 MG TABLET PO SCH (10:16)
--- NOTE | 2020-08-04 11:57 | PN ---
Progress Note, Physician History of Present Illness: Pt appears comfortable. He denies shortness of breath. - Current Medication List Current Medications: Active Medications Acetaminophen (Tylenol -) 650 mg PO Q4H PRN PRN Reason: PAIN LEVEL 7 - 10 Amlodipine Besylate (Norvasc -) 10 mg PO DAILY [facility] Last Admin: 08/04/20 10:16 Dose: 10 mg Documented by: Atorvastatin Calcium (Lipitor -) 40 mg PO HS [facility] Last Admin: 08/03/20 21:30 Dose: 40 mg Documented by: Doxycycline Hyclate (Vibramycin -) 100 mg PO BID@1000,1800 [facility] Last Admin: 08/04/20 10:16 Dose: 100 mg Documented by: Heparin Sodium (Porcine) (Heparin -) 5,000 unit SQ TID [facility] Last Admin: 08/03/20 21:27 Dose: Not Given Documented by: Piperacillin Sod/Tazobactam (Sod 3.375 gm/ Dextrose) 50 mls @ 100 mls/hr IVPB Q8H-IV [facility]; Protocol Last Admin: 08/04/20 10:17 Dose: 100 mls/hr Documented by: Sodium Chloride (Normal Saline -) 1,000 mls @ 75 mls/hr IV ASDIR [facility] Last Admin: 08/03/20 21:30 Dose: 75 mls/hr Documented by: Insulin Aspart (Novolog Vial Sliding Scale -) 1 vial SQ ACHS [facility]; Protocol Last Admin: 08/04/20 06:05 Dose: Not Given Documented by: Insulin Detemir (Levemir Vial) 30 units SQ BID@0700,2200 [facility] Last Admin: 08/04/20 06:05 Dose: Not Given Documented by: Lisinopril (Prinivil) 20 mg PO DAILY [facility] Last Admin: 08/04/20 10:16 Dose: 20 mg Documented by: Pantoprazole Sodium (Protonix -) 40 mg PO DAILY [facility] Last Admin: 08/04/20 10:16 Dose: 40 mg Documented by: - Objective Vital Signs: Vital Signs Temperature 98.6 F 08/04/20 10:01 Pulse Rate 104 H 08/04/20 10:01 Respiratory Rate 20 08/04/20 10:01 Blood Pressure 139/86 08/04/20 10:01 O2 Sat by Pulse Oximetry (%) 98 08/04/20 10:01 Constitutional: Yes: Calm Eyes: Yes: Conjunctiva Clear HENT: Yes: Atraumatic Cardiovascular: Yes: S1, S2 Respiratory: Yes: CTA Bilaterally Gastrointestinal: Yes: Soft Genitourinary: Yes: WNL Edema: No Neurological: Yes: Oriented Labs: CBC, BMP 08/04/20 07:13 08/04/20 07:13 INR, PTT INR 1.06 (0.83-1.09) 07/31/20 07:26 Problem List - Problems (1) CKD (chronic kidney disease) Code(s): N18.9 - CHRONIC KIDNEY DISEASE, UNSPECIFIED (2) Diabetes mellitus Code(s): E11.9 - TYPE 2 DIABETES MELLITUS WITHOUT COMPLICATIONS (3) HTN (hypertension) Code(s): I10 - ESSENTIAL (PRIMARY) HYPERTENSION Assessment/Plan Current Medications Generic Name Dose Route Start Last Admin Trade Name Freq PRN Reason Stop Dose Admin Acetaminophen 650 mg 07/30/20 20:13 Tylenol - PO Q4H PRN PAIN LEVEL 7 - 10 Amlodipine Besylate 10 mg 07/31/20 10:00 08/04/20 10:16 Norvasc - PO 10 mg DAILY [facility] Administration Atorvastatin Calcium 40 mg 07/31/20 22:00 08/03/20 21:30 Lipitor - PO 40 mg HS [facility] Administration Doxycycline Hyclate 100 mg 07/31/20 18:00 08/04/20 10:16 Vibramycin - PO 100 mg BID@1000,1800 [facility] Administration Heparin Sodium (Porcine) 5,000 unit 07/31/20 06:00 08/03/20 21:27 Heparin - SQ Not Given TID [facility] Piperacillin Sod/Tazobactam 50 mls @ 100 mls/hr 07/31/20 11:30 08/04/20 10:17 Sod 3.375 gm/ Dextrose IVPB 100 mls/hr Q8H-IV [facility] Administration Protocol Sodium Chloride 1,000 mls @ 75 mls/hr 08/03/20 22:00 08/03/20 21:30 Normal Saline - IV 75 mls/hr ASDIR [facility] Administration Insulin Aspart 1 vial 07/30/20 22:00 08/04/20 06:05 Novolog Vial Sliding Scale - SQ Not Given ACHS [facility] Protocol Insulin Detemir 30 units 07/31/20 22:00 08/04/20 06:05 Levemir Vial SQ Not Given BID@0700,2200 [facility] Lisinopril 20 mg 07/31/20 10:00 08/04/20 10:16 Prinivil PO 20 mg DAILY [facility] Administration Pantoprazole Sodium 40 mg 07/31/20 10:00 08/04/20 10:16 Protonix - PO 40 mg DAILY [facility] Administration Impression 1. CKD 2. HTN 3. DM 4. lower ext wound Plan - cont fluids while npo - repeat labs in am - vascular follow up - cont rachel for now - long standing uncontrolled DM can contribute to CKD - cont wound care Thank You Dr Ibarra
[2020-08-04] MEDS: SODIUM CHLORIDE 1,000 ML IV SCH ×2 (14:27→18:26)
[2020-08-04] MEDS ORDERED: HEPARIN NA (PORCINE) 5,000 UNITS/ML 1ML VIAL ONE (15:23)
[2020-08-04] MEDS ORDERED: LIDOCAINE HCL 1%, 10 MG/ML (20ML VIAL) ONE (15:23)
[2020-08-04] MEDS ORDERED: MIDAZOLAM HCL 2 MG/2 ML SINGLE DOSE VIAL ONE (15:27)
[2020-08-04] MEDS ORDERED: PROPOFOL 20 ML ONE (15:27)
[2020-08-04] MEDS ORDERED: DESFLURANE GAS 240 ML BOTTLE IH ONE (15:30)
[2020-08-04] MEDS ORDERED: ceFAZolin SODIUM 1 GM VIAL IVPB ONE (16:10)
[2020-08-04] MEDS ORDERED: LIDOCAINE HCL 1%, 10 MG/ML (20ML VIAL) NR ONE (16:22)
[2020-08-04] MEDS ORDERED: oxyCODONE HCL 5 MG TABLET PO PRN ×2 (16:30→17:38)
[2020-08-04] MEDS ORDERED: ONDANSETRON 4 MG/2 ML VIAL IVPUSH PRN ×2 (16:30→17:38)
[2020-08-04] MEDS ORDERED: PROMETHAZINE HCL 25 MG/1 ML VIAL IVPUSH PRN ×2 (16:30→17:38)
--- NOTE | 2020-08-04 16:52 | OP ---
Operative Note - Note: Operative Date: 08/04/20 Pre-Operative Diagnosis: right toe gangrene Operation: Aortogram, RLE angiogram Post-Operative Diagnosis: Same as Pre-op Surgeon: Hugh Dyer Anesthesia: MAC Estimated Blood Loss (mls): 10
--- NOTE | 2020-08-04 17:00 | PN ---
Physical Exam: SUBJECTIVE: Patient seen and examined. Angio today. OBJECTIVE: Vital Signs Period Temp Pulse Resp BP Sys/Chávez Pulse Ox Last 24 Hr 98.2 F-98.6 F 84-110 20-22 130-147/76-86 96-100 GENERAL: The patient is awake, alert, and fully oriented, in no acute distress. LUNGS: Breath sounds equal, clear to auscultation bilaterally, no wheezes, no crackles, no accessory muscle use. HEART: Regular rate and rhythm, S1, S2 without murmur, rub or gallop. ABDOMEN: Soft, nontender, nondistended, normoactive bowel sounds, no guarding, no rebound, no hepatosplenomegaly, no masses. EXTREMITIES: 2+ pulses, warm, well-perfused, no edema. rt 4th toe, ulcerated NEUROLOGICAL: Cranial nerves II through XII grossly intact. Normal speech, gait not observed. Laboratory Results - last 24 hr 08/03/20 08/03/20 08/04/20 16:51 21:26 06:04 WBC RBC Hgb Hct MCV MCH MCHC RDW Plt Count MPV Sodium Potassium Chloride Carbon Dioxide Anion Gap BUN Creatinine Est GFR (CKD-EPI)AfAm Est GFR (CKD-EPI)NonAf POC Glucometer 251 241 92 Random Glucose Calcium Phosphorus Magnesium 08/04/20 08/04/20 08/04/20 07:13 07:13 11:34 WBC 5.1 RBC 4.06 Hgb 11.6 L Hct 36.1 MCV 88.7 MCH 28.5 MCHC 32.2 RDW 14.4 Plt Count 164 MPV 10.5 Sodium 143 Potassium 3.7 Chloride 108 H Carbon Dioxide 25 Anion Gap 11 BUN 16.2 Creatinine 1.3 Est GFR (CKD-EPI)AfAm 71.19 Est GFR (CKD-EPI)NonAf 61.43 POC Glucometer 173 Random Glucose 132 H Calcium 9.2 Phosphorus 4.3 Magnesium 2.3 Active Medications Generic Name Dose Route Start Last Admin Trade Name Freq PRN Reason Stop Dose Admin Acetaminophen 650 mg 07/30/20 20:13 Tylenol - PO Q4H PRN PAIN LEVEL 7 - 10 Amlodipine Besylate 10 mg 07/31/20 10:00 08/04/20 10:16 Norvasc - PO 10 mg DAILY [facility] Administration Atorvastatin Calcium 40 mg 07/31/20 22:00 08/03/20 21:30 Lipitor - PO 40 mg HS [facility] Administration Doxycycline Hyclate 100 mg 07/31/20 18:00 08/04/20 10:16 Vibramycin - PO 100 mg BID@1000,1800 [facility] Administration Fentanyl 50 mcg 08/04/20 16:30 Sublimaze Injection - IVPUSH [id number] PRN PAIN-PACU ORDER X 4 DOSES ONLY Heparin Sodium (Porcine) 5,000 unit 07/31/20 06:00 08/03/20 21:27 Heparin - SQ Not Given TID [facility] Piperacillin Sod/Tazobactam 50 mls @ 100 mls/hr 07/31/20 11:30 08/04/20 10:17 Sod 3.375 gm/ Dextrose IVPB 100 mls/hr Q8H-IV [facility] Administration Protocol Sodium Chloride 1,000 mls @ 75 mls/hr 08/03/20 22:00 08/04/20 14:27 Normal Saline - IV 75 mls/hr ASDIR [facility] Administration Insulin Aspart 1 vial 07/30/20 22:00 08/04/20 11:55 Novolog Vial Sliding Scale - SQ 2 units ACHS [facility] Administration Protocol Insulin Detemir 30 units 07/31/20 22:00 08/04/20 06:05 Levemir Vial SQ Not Given BID@0700,2200 [facility] Lisinopril 20 mg 07/31/20 10:00 08/04/20 10:16 Prinivil PO 20 mg DAILY [facility] Administration Ondansetron HCl 4 mg 08/04/20 16:30 Zofran Injection IVPUSH Q6H PRN NAUSEA AND/OR VOMITING Oxycodone HCl 10 mg 08/04/20 16:30 Roxicodone - PO 08/05/20 16:29 Q4H PRN PAIN LEVEL 6-10 Pantoprazole Sodium 40 mg 07/31/20 10:00 08/04/20 10:16 Protonix - PO 40 mg DAILY [facility] Administration Promethazine HCl 12.5 mg 08/04/20 16:30 Phenergan Injection - IVPUSH Q6H PRN NAUSEA-FOR RESCUE AFTER 15 MIN ASSESSMENT/PLAN: Pt is a 54 year old M with PMHx of uncontrolled diabetic nephropathy and neuropathy, HTN, HLD presenting with R foot wound admitted for diabetic foot infection. #R diabetic foot infection -on IV zosyn + PO doxy -CTA reviewed -Blood cx pending -MRI reviewed -vascular surgery consulted; s/p angio -podiatry consulted; possible amputation R 4th toe; will follow up s/p angio #DM uncontrolled -SSI, BGM, levemir 30u BID #CKD -Cr 1.3; seems to be near baseline, 1.6 in 06/2020 -Renal consulted; continue lisinopril #Hx HTN Continue lisinopril #Hx of HLD Continue crestor FEN NS 75cc/hr Monitor electrolytes Diabetic/sodium diet PPx Heparin SQ Dispo Admitted to med surg. Diabetic/sodium diet. ATTENDING PHYSICIAN STATEMENT I saw and evaluated the patient. I reviewed the resident's note and discussed the case with the resident. I agree with the resident's findings and plan as documented. SUBJECTIVE: OBJECTIVE: ASSESSMENT AND PLAN:
[2020-08-04] MEDS ORDERED: ACETAMINOPHEN 325 MG TABLET (FP) PO PRN (17:38)
--- NOTE | 2020-08-04 17:56 | PN ---
Teaching Attending Note Name of Resident: Val Bartholomew ATTENDING PHYSICIAN STATEMENT I saw and evaluated the patient. I reviewed the resident's note and discussed the case with the resident. I agree with the resident's findings and plan as documented. SUBJECTIVE: Feels well, no complaints except for R 4th toe tenderness. No fever/chills/SOB. OBJECTIVE: Afebrile, Hemodynamically Stable. Last Vital Signs Temp Pulse Resp BP Pulse Ox 98.4 F 93 H 16 138/76 100 08/04/20 13:50 08/04/20 17:30 08/04/20 17:30 08/04/20 17:30 08/04/20 17:30 Heart - S1, S2, RRR Lungs - clear to auscultation Abdomen - Soft, non-tender. Bowel Sounds normal Extremities - R 4th toe gangrene, no ascending cellulitis. Cool peripheral LEs. Neuro - AAO x 3. Tone/Power normal. Laboratory Results - last 24 hr 08/03/20 08/04/20 08/04/20 21:26 06:04 07:13 WBC 5.1 RBC 4.06 Hgb 11.6 L Hct 36.1 MCV 88.7 MCH 28.5 MCHC 32.2 RDW 14.4 Plt Count 164 MPV 10.5 Sodium Potassium Chloride Carbon Dioxide Anion Gap BUN Creatinine Est GFR (CKD-EPI)AfAm Est GFR (CKD-EPI)NonAf POC Glucometer 241 92 Random Glucose Calcium Phosphorus Magnesium 08/04/20 08/04/20 08/04/20 07:13 11:34 17:42 WBC RBC Hgb Hct MCV MCH MCHC RDW Plt Count MPV Sodium 143 Potassium 3.7 Chloride 108 H Carbon Dioxide 25 Anion Gap 11 BUN 16.2 Creatinine 1.3 Est GFR (CKD-EPI)AfAm 71.19 Est GFR (CKD-EPI)NonAf 61.43 POC Glucometer 173 110 Random Glucose 132 H Calcium 9.2 Phosphorus 4.3 Magnesium 2.3 Current Medications Generic Name Dose Route Start Last Admin Trade Name Freq PRN Reason Stop Dose Admin Acetaminophen 650 mg 08/04/20 17:38 Tylenol - PO Q4H PRN PAIN LEVEL 7 - 10 Amlodipine Besylate 10 mg 08/05/20 10:00 Norvasc - PO DAILY [facility] Atorvastatin Calcium 40 mg 08/04/20 22:00 Lipitor - PO HS [facility] Doxycycline Hyclate 100 mg 08/04/20 18:00 Vibramycin - PO BID@1000,1800 [facility] Fentanyl 50 mcg 08/04/20 17:38 Sublimaze Injection - IVPUSH [id number] PRN PAIN-PACU ORDER X 4 DOSES ONLY Heparin Sodium (Porcine) 5,000 unit 08/04/20 22:00 Heparin - SQ TID [facility] Piperacillin Sod/Tazobactam 50 mls @ 100 mls/hr 08/04/20 18:00 Sod 3.375 gm/ Dextrose IVPB Q8H-IV [facility] Protocol Sodium Chloride 1,000 mls @ 75 mls/hr 08/04/20 17:38 Normal Saline - IV ASDIR [facility] Insulin Aspart 1 vial 08/04/20 22:00 Novolog Vial Sliding Scale - SQ ACHS [facility] Protocol Insulin Detemir 30 units 08/04/20 22:00 Levemir Vial SQ BID@0700,2200 [facility] Lisinopril 20 mg 08/05/20 10:00 Prinivil PO DAILY [facility] Ondansetron HCl 4 mg 08/04/20 17:38 Zofran Injection IVPUSH Q6H PRN NAUSEA AND/OR VOMITING Oxycodone HCl 10 mg 08/04/20 17:38 Roxicodone - PO 08/05/20 16:29 Q4H PRN PAIN LEVEL 6-10 Pantoprazole Sodium 40 mg 08/05/20 10:00 Protonix - PO DAILY [facility] Promethazine HCl 12.5 mg 08/04/20 17:38 Phenergan Injection - IVPUSH Q6H PRN NAUSEA-FOR RESCUE AFTER 15 MIN Home Medications Medication Instructions Recorded Amlodipine Besylate [Norvasc -] 10 mg PO DAILY 07/30/20 Ammonium Lactate Cream [Lac-Hydrin 1 applic TP DAILY PRN 07/30/20 12% *Cream*] Aspirin [ASA -] 81 mg PO DAILY 07/30/20 Basaglar Kwikpen U-100 35 unit SQ HS 07/30/20 Diflorasone Diacetate/Emoll 30 gm TP DAILY PRN 07/30/20 [Apexicon E 0.05% Cream] Glipizide 10 mg PO BID 07/30/20 Lansoprazole [Prevacid] 30 mg PO DAILY 07/30/20 Lisinopril 20 mg PO DAILY 07/30/20 Metformin HCl [Glucophage] 1,000 mg PO BID 07/30/20 Simvastatin 40 mg PO DAILY 07/30/20 Sitagliptin Phosphate [Januvia] 100 mg PO DAILY 07/30/20 ASSESSMENT AND PLAN: 54 year old male with DM 2, Diabetic Nephropathy and Neuropathy, HTN, HLD, CKD 3, GERD, presents with R 4th toe ulcer/discoloration. 1. 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 Afebrile, Hemodynamically Stable, Blood Cx negative Continue Doxycycline/Zosyn as per ID. Patient and Podiatry to decide re: possible amputation after revascularization. 2. BRICE on CKD 3 - resolved. Creat at baseline. IV hydration while NPO for Angiogram 3. DM 2 - Metformin, Januvia, Basaglar held. Maintain on Levemir/Novolog sliding scale. 4. HTN - Continue Norvasc, Lisinopril. 5. HLD - Continue Lipitor (Home Simvastatin changed to Lipitor due to potential interaction with Norvasc). 6. GERD - Continue PPI DVT Px - Heparin SQ
[2020-08-04] MEDS ORDERED: INSULIN (NOVOLOG) ASPART 100 UNITS/ML 10ML VIAL ONE (17:57)
[2020-08-04] MEDS: HEPARIN NA (PORCINE) 5,000 UNITS/ML 1ML VIAL SQ SCH (21:55)
[2020-08-04] MEDS: ATORVASTATIN CA 20 MG TABLET (FP) PO SCH (21:57)
[2020-08-05] MEDS ORDERED: PIPERACILLIN/TAZOBACTAM 3.375 GM VIAL IVPB ONE ×2 (01:58→10:00)
[2020-08-05] MEDS ORDERED: DEXTROSE 5%-WATER - 50 ML IVPB ONE ×2 (01:59→10:00)
[2020-08-05] MEDS: PIPERACILLIN/TAZOB 3.375 GM 3.375 GM in DEXTROSE 5%-WATER - 50 ML IVPB SCH ×2 (02:14→10:04)
[2020-08-05] MEDS ORDERED: INSULIN (NOVOLOG) ASPART 100 UNITS/ML 10ML VIAL ONE (06:42)
[2020-08-05] MEDS: INSULIN SLIDING SCALE (NOVOLOG) 1 VIAL SQ SCH ×4 (07:10→21:58)
[2020-08-05] MEDS: INSULIN (LEVEMIR) 100 UNITS/ML UNITS SQ SCH ×2 (07:12→21:57)
[2020-08-05] MEDS: HEPARIN NA (PORCINE) 5,000 UNITS/ML 1ML VIAL SQ SCH ×3 (07:12→21:57)
[2020-08-05 07:52] LABS: HEMATOCRIT 31.3 % (35.4-49); HEMOGLOBIN 10.4 GM/dL (11.7-16.9); MCH 29.1 pg (25.7-33.7); MCHC 33.3 g/dl (32.0-35.9); MEAN CELL VOLUME 87.5 fl (80-96); MEAN PLT VOLUME 10.2 fl (7.5-11.1); PLATELET COUNT 136 K/MM3 (134-434); RBC 3.58 M/mm3 (4.00-5.60); RDW 14.3 % (11.9-15.9); WHITE BLOOD COUNT 4.6 K/mm3 (4.0-10.0)
[2020-08-05 08:28] LABS: CALCIUM 8.5 mg/dL (8.5-10.1); CREATININE 1.1 mg/dL (0.55-1.3)
[2020-08-05] MEDS ORDERED: PT OWN MED DRAWER 7, Y5N ONE (10:00)
[2020-08-05] MEDS: PANTOPRAZOLE 40 MG TABLET PO SCH (10:03)
[2020-08-05] MEDS: amLODIPine BESYLATE 10 MG TABLET (FP) PO SCH (10:03)
[2020-08-05] MEDS: LISINOPRIL 20 MG TABLET PO SCH (10:03)
[2020-08-05] MEDS: DOXYCYCLINE HYCLATE 100 MG CAPSULE PO SCH ×2 (10:04→17:37)
--- NOTE | 2020-08-05 11:03 | PN ---
Progress Note, Physician Chief Complaint: s/p angiogram post op day one lower extremity History of Present Illness: under monitored anesthesia care with sedation - Current Medication List Current Medications: Active Medications Acetaminophen (Tylenol -) 650 mg PO Q4H PRN PRN Reason: PAIN LEVEL 7 - 10 Amlodipine Besylate (Norvasc -) 10 mg PO DAILY [facility] Last Admin: 08/05/20 10:03 Dose: 10 mg Documented by: Atorvastatin Calcium (Lipitor -) 40 mg PO HS [facility] Last Admin: 08/04/20 21:57 Dose: 40 mg Documented by: Doxycycline Hyclate (Vibramycin -) 100 mg PO BID@1000,1800 [facility] Last Admin: 08/05/20 10:04 Dose: 100 mg Documented by: Fentanyl (Sublimaze Injection -) 50 mcg IVPUSH [id number] PRN PRN Reason: PAIN-PACU ORDER X 4 DOSES ONLY Heparin Sodium (Porcine) (Heparin -) 5,000 unit SQ TID [facility] Last Admin: 08/05/20 07:12 Dose: 5,000 unit Documented by: Piperacillin Sod/Tazobactam (Sod 3.375 gm/ Dextrose) 50 mls @ 100 mls/hr IVPB Q8H-IV [facility]; Protocol Last Admin: 08/05/20 10:04 Dose: 100 mls/hr Documented by: Sodium Chloride (Normal Saline -) 1,000 mls @ 75 mls/hr IV ASDIR [facility] Last Admin: 08/04/20 18:26 Dose: 75 mls/hr Documented by: Insulin Aspart (Novolog Vial Sliding Scale -) 1 vial SQ ACHS [facility]; Protocol Last Admin: 08/05/20 07:10 Dose: Not Given Documented by: Insulin Detemir (Levemir Vial) 30 units SQ BID@0700,2200 [facility] Last Admin: 08/05/20 07:12 Dose: 30 units Documented by: Lisinopril (Prinivil) 20 mg PO DAILY [facility] Last Admin: 08/05/20 10:03 Dose: 20 mg Documented by: Ondansetron HCl (Zofran Injection) 4 mg IVPUSH Q6H PRN PRN Reason: NAUSEA AND/OR VOMITING Oxycodone HCl (Roxicodone -) 10 mg PO Q4H PRN PRN Reason: PAIN LEVEL 6-10 Stop: 08/05/20 16:29 Pantoprazole Sodium (Protonix -) 40 mg PO DAILY [facility] Last Admin: 08/05/20 10:03 Dose: 40 mg Documented by: Promethazine HCl (Phenergan Injection -) 12.5 mg IVPUSH Q6H PRN PRN Reason: NAUSEA-FOR RESCUE AFTER 15 MIN - Objective Vital Signs: Vital Signs Temperature 98.3 F 08/05/20 06:00 Pulse Rate 80 08/05/20 06:00 Respiratory Rate 20 08/05/20 06:00 Blood Pressure 118/82 08/05/20 06:00 O2 Sat by Pulse Oximetry (%) 98 08/05/20 06:00 Constitutional: Yes: Well Nourished Cardiovascular: Yes: WNL Respiratory: Yes: WNL Gastrointestinal: Yes: WNL Labs: CBC, BMP 08/05/20 07:03 08/05/20 07:03 INR, PTT INR 1.06 (0.83-1.09) 07/31/20 07:26 Assessment/Plan No adverse anesthetic complications, dept of anesthesiology will sign off care at this time
--- NOTE | 2020-08-05 11:38 | PN ---
Progress Note, Physician History of Present Illness: s/p angio stable spoke with the sister - Current Medication List Current Medications: Active Medications Acetaminophen (Tylenol -) 650 mg PO Q4H PRN PRN Reason: PAIN LEVEL 7 - 10 Amlodipine Besylate (Norvasc -) 10 mg PO DAILY [facility] Last Admin: 08/05/20 10:03 Dose: 10 mg Documented by: Atorvastatin Calcium (Lipitor -) 40 mg PO HS [facility] Last Admin: 08/04/20 21:57 Dose: 40 mg Documented by: Doxycycline Hyclate (Vibramycin -) 100 mg PO BID@1000,1800 [facility] Last Admin: 08/05/20 10:04 Dose: 100 mg Documented by: Fentanyl (Sublimaze Injection -) 50 mcg IVPUSH [id number] PRN PRN Reason: PAIN-PACU ORDER X 4 DOSES ONLY Heparin Sodium (Porcine) (Heparin -) 5,000 unit SQ TID [facility] Last Admin: 08/05/20 07:12 Dose: 5,000 unit Documented by: Sodium Chloride (Normal Saline -) 1,000 mls @ 75 mls/hr IV ASDIR [facility] Last Admin: 08/04/20 18:26 Dose: 75 mls/hr Documented by: Insulin Aspart (Novolog Vial Sliding Scale -) 1 vial SQ ACHS [facility]; Protocol Last Admin: 08/05/20 07:10 Dose: Not Given Documented by: Insulin Detemir (Levemir Vial) 30 units SQ BID@0700,2200 [facility] Last Admin: 08/05/20 07:12 Dose: 30 units Documented by: Lisinopril (Prinivil) 20 mg PO DAILY [facility] Last Admin: 08/05/20 10:03 Dose: 20 mg Documented by: Ondansetron HCl (Zofran Injection) 4 mg IVPUSH Q6H PRN PRN Reason: NAUSEA AND/OR VOMITING Oxycodone HCl (Roxicodone -) 10 mg PO Q4H PRN PRN Reason: PAIN LEVEL 6-10 Stop: 08/05/20 16:29 Pantoprazole Sodium (Protonix -) 40 mg PO DAILY [facility] Last Admin: 08/05/20 10:03 Dose: 40 mg Documented by: Promethazine HCl (Phenergan Injection -) 12.5 mg IVPUSH Q6H PRN PRN Reason: NAUSEA-FOR RESCUE AFTER 15 MIN - Objective Vital Signs: Vital Signs Temperature 98.3 F 08/05/20 06:00 Pulse Rate 80 08/05/20 06:00 Respiratory Rate 20 08/05/20 06:00 Blood Pressure 118/82 08/05/20 06:00 O2 Sat by Pulse Oximetry (%) 98 08/05/20 06:00 Constitutional: Yes: No Distress, Calm Cardiovascular: Yes: S1, S2 Respiratory: Yes: Regular, CTA Bilaterally Gastrointestinal: Yes: Normal Bowel Sounds, Soft Musculoskeletal: Yes: WNL Extremities: Yes: WNL Wound/Incision: Yes: Dressing Dry and Intact Neurological: Yes: Alert, Oriented Labs: CBC, BMP 08/05/20 07:03 08/05/20 07:03 INR, PTT INR 1.06 (0.83-1.09) 07/31/20 07:26 Assessment/Plan 54 y.o. M PMH uncontrolled diabetes mellitus, HTN presenting from Dr. Dyer's vascular office for management of right foot 4th digit wound. necrotic ulcer of the rt 4th toe dm hyperkalemia increased creatinine bone marrow edema plan will stop zosyn continue doxy wound care rest as per the team
--- NOTE | 2020-08-05 12:00 | PN ---
Progress Note (short form) - Note Progress Note: Podiatry F/U: Seen/evaluated at bedside NAD. Pain controlled, denies F/V/N/C/SOB/CP. Afebrile. S/p RLE diagnostic angiogram yesterday with Dr. Dyer. BRITTNEY: R foot: fourth digit dry gangrenous changes to the distal half of the fourth toe. There is no purulent drainage, no fluctuance, no streaking ascending cellulitis, no signs of active infection. No tenderness to palpation. Well demarcated to the proximal aspect of the fourth PIPJ. Imp: 54 year old poorly controlled diabetic male with right fourth digit dry gangrene 1. IV abx per ID 2. Continue local care 3. I had a lengthy discussion with the patient and his site who was on the phone. I discussed both surgical and non-surgical options. Risks, benefits and alternatives to surgery discussed at length. He is now agreeable to planned procedure. Will plan for right fourth toe amputation tomorrow. NPO at midnight. Navdeep Villeda DPM
--- NOTE | 2020-08-05 12:23 | PN ---
Progress Note (short form) - Note Progress Note: Vascular Surgery Pt seen and examined. Right foot toe has demarcated to distal half of toe with gangrene. Spoke to family today on the phone. Angio shows good flow to the foot. Cleared for podiatry intervention. Hugh Dyer DO
--- NOTE | 2020-08-05 15:09 | PN ---
Progress Note, Physician History of Present Illness: Pt seen and examined at bedside. He is awake and alert. he denies shortness of breath. - Current Medication List Current Medications: Active Medications Acetaminophen (Tylenol -) 650 mg PO Q4H PRN PRN Reason: PAIN LEVEL 7 - 10 Amlodipine Besylate (Norvasc -) 10 mg PO DAILY [facility] Last Admin: 08/05/20 10:03 Dose: 10 mg Documented by: Atorvastatin Calcium (Lipitor -) 40 mg PO HS [facility] Last Admin: 08/04/20 21:57 Dose: 40 mg Documented by: Doxycycline Hyclate (Vibramycin -) 100 mg PO BID@1000,1800 [facility] Last Admin: 08/05/20 10:04 Dose: 100 mg Documented by: Fentanyl (Sublimaze Injection -) 50 mcg IVPUSH [id number] PRN PRN Reason: PAIN-PACU ORDER X 4 DOSES ONLY Heparin Sodium (Porcine) (Heparin -) 5,000 unit SQ TID [facility] Last Admin: 08/05/20 13:34 Dose: 5,000 unit Documented by: Sodium Chloride (Normal Saline -) 1,000 mls @ 75 mls/hr IV ASDIR [facility] Last Admin: 08/04/20 18:26 Dose: 75 mls/hr Documented by: Insulin Aspart (Novolog Vial Sliding Scale -) 1 vial SQ ACHS [facility]; Protocol Last Admin: 08/05/20 11:49 Dose: 6 units Documented by: Insulin Detemir (Levemir Vial) 30 units SQ BID@0700,2200 [facility] Last Admin: 08/05/20 07:12 Dose: 30 units Documented by: Lisinopril (Prinivil) 20 mg PO DAILY [facility] Last Admin: 08/05/20 10:03 Dose: 20 mg Documented by: Ondansetron HCl (Zofran Injection) 4 mg IVPUSH Q6H PRN PRN Reason: NAUSEA AND/OR VOMITING Oxycodone HCl (Roxicodone -) 10 mg PO Q4H PRN PRN Reason: PAIN LEVEL 6-10 Stop: 08/05/20 16:29 Pantoprazole Sodium (Protonix -) 40 mg PO DAILY [facility] Last Admin: 08/05/20 10:03 Dose: 40 mg Documented by: Promethazine HCl (Phenergan Injection -) 12.5 mg IVPUSH Q6H PRN PRN Reason: NAUSEA-FOR RESCUE AFTER 15 MIN - Objective Vital Signs: Vital Signs Temperature 98.3 F 08/05/20 14:00 Pulse Rate 104 H 08/05/20 14:00 Respiratory Rate 20 08/05/20 14:00 Blood Pressure 129/79 08/05/20 14:00 O2 Sat by Pulse Oximetry (%) 96 08/05/20 14:00 Constitutional: Yes: Calm Eyes: Yes: Conjunctiva Clear HENT: Yes: Atraumatic Neck: Yes: Supple Cardiovascular: Yes: S1, S2 Respiratory: Yes: CTA Bilaterally Gastrointestinal: Yes: Normal Bowel Sounds, Soft Genitourinary: Yes: WNL Musculoskeletal: Yes: WNL Extremities: Yes: WNL Edema: No Neurological: Yes: Oriented Psychiatric: Yes: Oriented Labs: CBC, BMP 08/05/20 07:03 08/05/20 07:03 INR, PTT INR 1.06 (0.83-1.09) 07/31/20 07:26 Problem List - Problems (1) CKD (chronic kidney disease) Code(s): N18.9 - CHRONIC KIDNEY DISEASE, UNSPECIFIED (2) Diabetes mellitus Code(s): E11.9 - TYPE 2 DIABETES MELLITUS WITHOUT COMPLICATIONS (3) HTN (hypertension) Code(s): I10 - ESSENTIAL (PRIMARY) HYPERTENSION Assessment/Plan Current Medications Generic Name Dose Route Start Last Admin Trade Name Barryq PRN Reason Stop Dose Admin Acetaminophen 650 mg 08/04/20 17:38 Tylenol - PO Q4H PRN PAIN LEVEL 7 - 10 Amlodipine Besylate 10 mg 08/05/20 10:00 08/05/20 10:03 Norvasc - PO 10 mg DAILY [facility] Administration Atorvastatin Calcium 40 mg 08/04/20 22:00 08/04/20 21:57 Lipitor - PO 40 mg HS [facility] Administration Doxycycline Hyclate 100 mg 08/04/20 18:00 08/05/20 10:04 Vibramycin - PO 100 mg BID@1000,1800 [facility] Administration Fentanyl 50 mcg 08/04/20 17:38 Sublimaze Injection - IVPUSH [id number] PRN PAIN-PACU ORDER X 4 DOSES ONLY Heparin Sodium (Porcine) 5,000 unit 08/04/20 22:00 08/05/20 13:34 Heparin - SQ 5,000 unit TID [facility] Administration Sodium Chloride 1,000 mls @ 75 mls/hr 08/04/20 17:38 08/04/20 18:26 Normal Saline - IV 75 mls/hr ASDIR [facility] Administration Insulin Aspart 1 vial 08/04/20 22:00 08/05/20 11:49 Novolog Vial Sliding Scale - SQ 6 units ACHS [facility] Administration Protocol Insulin Detemir 30 units 08/04/20 22:00 08/05/20 07:12 Levemir Vial SQ 30 units BID@0700,2200 [facility] Administration Lisinopril 20 mg 08/05/20 10:00 08/05/20 10:03 Prinivil PO 20 mg DAILY [facility] Administration Ondansetron HCl 4 mg 08/04/20 17:38 Zofran Injection IVPUSH Q6H PRN NAUSEA AND/OR VOMITING Oxycodone HCl 10 mg 08/04/20 17:38 Roxicodone - PO 08/05/20 16:29 Q4H PRN PAIN LEVEL 6-10 Pantoprazole Sodium 40 mg 08/05/20 10:00 08/05/20 10:03 Protonix - PO 40 mg DAILY [facility] Administration Promethazine HCl 12.5 mg 08/04/20 17:38 Phenergan Injection - IVPUSH Q6H PRN NAUSEA-FOR RESCUE AFTER 15 MIN Impression 1. CKD 2. HTN 3. DM 4. 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
--- NOTE | 2020-08-05 16:03 | PN ---
Physical Exam: SUBJECTIVE: Patient seen and examined. OBJECTIVE: Vital Signs Period Temp Pulse Resp BP Sys/Chávez Pulse Ox Last 24 Hr 98 F-98.6 F 80-104 14-20 118-230/73-88 96-100 GENERAL: The patient is awake, alert, and fully oriented, in no acute distress. LUNGS: Breath sounds equal, clear to auscultation bilaterally, no wheezes, no crackles, no accessory muscle use. HEART: Regular rate and rhythm, S1, S2 without murmur, rub or gallop. ABDOMEN: Soft, nontender, nondistended, normoactive bowel sounds, no guarding, no rebound, no hepatosplenomegaly, no masses. EXTREMITIES: 2+ pulses, warm, well-perfused, no edema. rt 4th toe, ulcerated NEUROLOGICAL: Cranial nerves II through XII grossly intact. Normal speech, gait not observed. Laboratory Results - last 24 hr 08/04/20 08/04/20 08/05/20 17:42 21:51 07:03 WBC 4.6 RBC 3.58 L Hgb 10.4 L Hct 31.3 L MCV 87.5 MCH 29.1 MCHC 33.3 RDW 14.3 Plt Count 136 MPV 10.2 Sodium Potassium Chloride Carbon Dioxide Anion Gap BUN Creatinine Est GFR (CKD-EPI)AfAm Est GFR (CKD-EPI)NonAf POC Glucometer 110 277 Random Glucose Calcium 08/05/20 08/05/20 08/05/20 07:03 07:09 11:48 WBC RBC Hgb Hct MCV MCH MCHC RDW Plt Count MPV Sodium 139 Potassium 4.0 Chloride 108 H Carbon Dioxide 24 Anion Gap 6 L BUN 14.0 Creatinine 1.1 Est GFR (CKD-EPI)AfAm 87.13 Est GFR (CKD-EPI)NonAf 75.17 POC Glucometer 150 266 Random Glucose 177 H Calcium 8.5 Active Medications Generic Name Dose Route Start Last Admin Trade Name Freq PRN Reason Stop Dose Admin Acetaminophen 650 mg 08/04/20 17:38 Tylenol - PO Q4H PRN PAIN LEVEL 7 - 10 Amlodipine Besylate 10 mg 08/05/20 10:00 08/05/20 10:03 Norvasc - PO 10 mg DAILY [facility] Administration Atorvastatin Calcium 40 mg 08/04/20 22:00 08/04/20 21:57 Lipitor - PO 40 mg HS [facility] Administration Doxycycline Hyclate 100 mg 08/04/20 18:00 08/05/20 10:04 Vibramycin - PO 100 mg BID@1000,1800 [facility] Administration Fentanyl 50 mcg 08/04/20 17:38 Sublimaze Injection - IVPUSH [id number] PRN PAIN-PACU ORDER X 4 DOSES ONLY Heparin Sodium (Porcine) 5,000 unit 08/04/20 22:00 08/05/20 13:34 Heparin - SQ 5,000 unit TID [facility] Administration Sodium Chloride 1,000 mls @ 75 mls/hr 08/04/20 17:38 08/04/20 18:26 Normal Saline - IV 75 mls/hr ASDIR [facility] Administration Insulin Aspart 1 vial 08/04/20 22:00 08/05/20 11:49 Novolog Vial Sliding Scale - SQ 6 units ACHS [facility] Administration Protocol Insulin Detemir 30 units 08/04/20 22:00 08/05/20 07:12 Levemir Vial SQ 30 units BID@0700,2200 [facility] Administration Lisinopril 20 mg 08/05/20 10:00 08/05/20 10:03 Prinivil PO 20 mg DAILY [facility] Administration Ondansetron HCl 4 mg 08/04/20 17:38 Zofran Injection IVPUSH Q6H PRN NAUSEA AND/OR VOMITING Oxycodone HCl 10 mg 08/04/20 17:38 Roxicodone - PO 08/05/20 16:29 Q4H PRN PAIN LEVEL 6-10 Pantoprazole Sodium 40 mg 08/05/20 10:00 08/05/20 10:03 Protonix - PO 40 mg DAILY [facility] Administration Promethazine HCl 12.5 mg 08/04/20 17:38 Phenergan Injection - IVPUSH Q6H PRN NAUSEA-FOR RESCUE AFTER 15 MIN ASSESSMENT/PLAN: Pt is a 54 year old M with PMHx of uncontrolled diabetic nephropathy and neuropathy, HTN, HLD presenting with R foot wound admitted for diabetic foot infection. #R diabetic foot infection -on IV zosyn + PO doxy -CTA reviewed -MRI reviewed -vascular surgery consulted; s/p angio -podiatry consulted; plan for R 4th toe amputation in AM (NPO after midnight, ac held) #DM uncontrolled -SSI, BGM, levemir 30u BID #CKD -Cr 1.1 -Renal consulted; continue lisinopril #Hx HTN Continue lisinopril #Hx of HLD Continue crestor FEN NS 75cc/hr Monitor electrolytes Diabetic/sodium diet PPx Heparin SQ Dispo Admitted to med surg. Diabetic/sodium diet. R 4th toe amputation tomorrow with podiatry ATTENDING PHYSICIAN STATEMENT I saw and evaluated the patient. I reviewed the resident's note and discussed the case with the resident. I agree with the resident's findings and plan as documented. SUBJECTIVE: OBJECTIVE: ASSESSMENT AND PLAN:
--- NOTE | 2020-08-05 18:23 | PN ---
Teaching Attending Note Name of Resident: Val Bartholomew ATTENDING PHYSICIAN STATEMENT I saw and evaluated the patient. I reviewed the resident's note and discussed the case with the resident. I agree with the resident's findings and plan as documented. SUBJECTIVE: Feels well, no complaints except for R 4th toe tenderness. No fever/chills/SOB. OBJECTIVE: Afebrile, Hemodynamically Stable. Last Vital Signs Temp Pulse Resp BP Pulse Ox 98.3 F 104 H 20 129/79 96 08/05/20 14:00 08/05/20 14:00 08/05/20 14:00 08/05/20 14:00 08/05/20 14:00 Heart - S1, S2, RRR Lungs - clear to auscultation Abdomen - Soft, non-tender. Bowel Sounds normal Extremities - R 4th toe gangrene, no ascending cellulitis. Cool peripheral LEs. Neuro - AAO x 3. Tone/Power normal. Laboratory Results - last 24 hr 08/04/20 08/05/20 08/05/20 21:51 07:03 07:03 WBC 4.6 RBC 3.58 L Hgb 10.4 L Hct 31.3 L MCV 87.5 MCH 29.1 MCHC 33.3 RDW 14.3 Plt Count 136 MPV 10.2 Sodium 139 Potassium 4.0 Chloride 108 H Carbon Dioxide 24 Anion Gap 6 L BUN 14.0 Creatinine 1.1 Est GFR (CKD-EPI)AfAm 87.13 Est GFR (CKD-EPI)NonAf 75.17 POC Glucometer 277 Random Glucose 177 H Calcium 8.5 08/05/20 08/05/20 08/05/20 07:09 11:48 17:18 WBC RBC Hgb Hct MCV MCH MCHC RDW Plt Count MPV Sodium Potassium Chloride Carbon Dioxide Anion Gap BUN Creatinine Est GFR (CKD-EPI)AfAm Est GFR (CKD-EPI)NonAf POC Glucometer 150 266 175 Random Glucose Calcium Current Medications Generic Name Dose Route Start Last Admin Trade Name Freq PRN Reason Stop Dose Admin Acetaminophen 650 mg 08/04/20 17:38 Tylenol - PO Q4H PRN PAIN LEVEL 7 - 10 Amlodipine Besylate 10 mg 08/05/20 10:00 08/05/20 10:03 Norvasc - PO 10 mg DAILY [facility] Administration Atorvastatin Calcium 40 mg 08/04/20 22:00 08/04/20 21:57 Lipitor - PO 40 mg HS [facility] Administration Doxycycline Hyclate 100 mg 08/04/20 18:00 08/05/20 17:37 Vibramycin - PO 100 mg BID@1000,1800 [facility] Administration Fentanyl 50 mcg 08/04/20 17:38 Sublimaze Injection - IVPUSH [id number] PRN PAIN-PACU ORDER X 4 DOSES ONLY Heparin Sodium (Porcine) 5,000 unit 08/04/20 22:00 08/05/20 13:34 Heparin - SQ 5,000 unit TID [facility] Administration Sodium Chloride 1,000 mls @ 75 mls/hr 08/04/20 17:38 08/04/20 18:26 Normal Saline - IV 75 mls/hr ASDIR [facility] Administration Insulin Aspart 1 vial 08/04/20 22:00 08/05/20 17:19 Novolog Vial Sliding Scale - SQ 2 units ACHS [facility] Administration Protocol Insulin Detemir 30 units 08/04/20 22:00 08/05/20 07:12 Levemir Vial SQ 30 units BID@0700,2200 [facility] Administration Lisinopril 20 mg 08/05/20 10:00 08/05/20 10:03 Prinivil PO 20 mg DAILY [facility] Administration Ondansetron HCl 4 mg 08/04/20 17:38 Zofran Injection IVPUSH Q6H PRN NAUSEA AND/OR VOMITING Pantoprazole Sodium 40 mg 08/05/20 10:00 08/05/20 10:03 Protonix - PO 40 mg DAILY [facility] Administration Promethazine HCl 12.5 mg 08/04/20 17:38 Phenergan Injection - IVPUSH Q6H PRN NAUSEA-FOR RESCUE AFTER 15 MIN Home Medications Medication Instructions Recorded Amlodipine Besylate [Norvasc -] 10 mg PO DAILY 07/30/20 Ammonium Lactate Cream [Lac-Hydrin 1 applic TP DAILY PRN 07/30/20 12% *Cream*] Aspirin [ASA -] 81 mg PO DAILY 07/30/20 Basaglar Kwikpen U-100 35 unit SQ HS 07/30/20 Diflorasone Diacetate/Emoll 30 gm TP DAILY PRN 07/30/20 [Apexicon E 0.05% Cream] Glipizide 10 mg PO BID 07/30/20 Lansoprazole [Prevacid] 30 mg PO DAILY 07/30/20 Lisinopril 20 mg PO DAILY 07/30/20 Metformin HCl [Glucophage] 1,000 mg PO BID 07/30/20 Simvastatin 40 mg PO DAILY 07/30/20 Sitagliptin Phosphate [Januvia] 100 mg PO DAILY 07/30/20 ASSESSMENT AND PLAN: 54 year old male with DM 2, Diabetic Nephropathy and Neuropathy, HTN, HLD, CKD 3, GERD, presents with R 4th toe ulcer/discoloration. 1. 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 Afebrile, Hemodynamically Stable, Blood Cx negative Treated with Doxycycline/Zosyn - Zosyn discontinued and Doxy continued as per ID. For toe amputation by Podiatry in AM. NPO from [place]. Wound Care. 2. BRICE on CKD 3 - resolved. Creat at baseline. IV hydration while NPO. 3. DM 2 - Metformin, Januvia, Basaglar held. Maintain on Levemir/Novolog sliding scale. 4. HTN - Continue Norvasc, Lisinopril. 5. HLD - Continue Lipitor (Home Simvastatin changed to Lipitor due to potential interaction with Norvasc). 6. GERD - Continue PPI DVT Px - Heparin SQ
[2020-08-05] MEDS: SODIUM CHLORIDE 1,000 ML IV SCH ×3 (20:18→20:40)
[2020-08-05] MEDS: ATORVASTATIN CA 20 MG TABLET (FP) PO SCH (21:58)
[2020-08-06] MEDS: INSULIN (LEVEMIR) 100 UNITS/ML UNITS SQ SCH ×2 (06:40→21:28)
[2020-08-06] MEDS: INSULIN SLIDING SCALE (NOVOLOG) 1 VIAL SQ SCH ×4 (06:40→21:29)
[2020-08-06 09:02] LABS: BASO % 0.8 % (0-2.0); EOS % 2.8 % (0-4.5); HEMATOCRIT 30.7 % (35.4-49); HEMOGLOBIN 10.1 GM/dL (11.7-16.9); LYMPH % 26.8 % (8-40); MCH 28.7 pg (25.7-33.7); MCHC 32.8 g/dl (32.0-35.9); MEAN CELL VOLUME 87.5 fl (80-96); MEAN PLT VOLUME 10.3 fl (7.5-11.1); NEUT % 62.6 % (42.8-82.8); PLATELET COUNT 133 K/MM3 (134-434); RBC 3.51 M/mm3 (4.00-5.60); RDW 14.3 % (11.9-15.9)
[2020-08-06 09:28] LABS: BLOOD UREA NITROGEN 12.5 mg/dL (7-18); CALCIUM 8.6 mg/dL (8.5-10.1); PHOSPHOROUS 2.9 mg/dL (2.5-4.9); POTASSIUM 3.7 mmol/L (3.5-5.1)
[2020-08-06] MEDS: PANTOPRAZOLE 40 MG TABLET PO SCH (10:07)
[2020-08-06] MEDS: amLODIPine BESYLATE 10 MG TABLET (FP) PO SCH (10:07)
[2020-08-06] MEDS: LISINOPRIL 20 MG TABLET PO SCH (10:07)
[2020-08-06] MEDS: DOXYCYCLINE HYCLATE 100 MG CAPSULE PO SCH ×2 (10:08→18:05)
--- NOTE | 2020-08-06 10:45 | PN ---
Progress Note, Physician History of Present Illness: stable no new issues vascular note noted - Current Medication List Current Medications: Active Medications Acetaminophen (Tylenol -) 650 mg PO Q4H PRN PRN Reason: PAIN LEVEL 7 - 10 Amlodipine Besylate (Norvasc -) 10 mg PO DAILY [facility] Last Admin: 08/06/20 10:07 Dose: 10 mg Documented by: Atorvastatin Calcium (Lipitor -) 40 mg PO HS [facility] Last Admin: 08/05/20 21:58 Dose: 40 mg Documented by: Doxycycline Hyclate (Vibramycin -) 100 mg PO BID@1000,1800 [facility] Last Admin: 08/06/20 10:08 Dose: Not Given Documented by: Fentanyl (Sublimaze Injection -) 50 mcg IVPUSH [id number] PRN PRN Reason: PAIN-PACU ORDER X 4 DOSES ONLY Heparin Sodium (Porcine) (Heparin -) 5,000 unit SQ TID [facility] Last Admin: 08/05/20 21:57 Dose: 5,000 unit Documented by: Sodium Chloride (Normal Saline -) 1,000 mls @ 50 mls/hr IV ASDIR [facility] Last Admin: 08/05/20 20:40 Dose: 50 mls/hr Documented by: Insulin Aspart (Novolog Vial Sliding Scale -) 1 vial SQ ACHS [facility]; Protocol Last Admin: 08/06/20 06:40 Dose: Not Given Documented by: Insulin Detemir (Levemir Vial) 30 units SQ BID@0700,2200 [facility] Last Admin: 08/06/20 06:40 Dose: Not Given Documented by: Lisinopril (Prinivil) 20 mg PO DAILY [facility] Last Admin: 08/06/20 10:07 Dose: 20 mg Documented by: Ondansetron HCl (Zofran Injection) 4 mg IVPUSH Q6H PRN PRN Reason: NAUSEA AND/OR VOMITING Pantoprazole Sodium (Protonix -) 40 mg PO DAILY [facility] Last Admin: 08/06/20 10:07 Dose: Not Given Documented by: Promethazine HCl (Phenergan Injection -) 12.5 mg IVPUSH Q6H PRN PRN Reason: NAUSEA-FOR RESCUE AFTER 15 MIN - Objective Vital Signs: Vital Signs Temperature 98.4 F 08/06/20 06:00 Pulse Rate 107 H 08/06/20 06:00 Respiratory Rate 16 08/06/20 06:00 Blood Pressure 144/96 08/06/20 06:00 O2 Sat by Pulse Oximetry (%) 98 08/06/20 06:00 Constitutional: Yes: No Distress, Calm Cardiovascular: Yes: S1, S2 Respiratory: Yes: Regular, CTA Bilaterally Gastrointestinal: Yes: Normal Bowel Sounds, Soft Musculoskeletal: Yes: WNL Extremities: Yes: Other Wound/Incision: Yes: Dressing Dry and Intact Neurological: Yes: Alert, Oriented Psychiatric: Yes: Alert, Oriented Labs: CBC, BMP 08/06/20 08:15 08/06/20 08:15 INR, PTT INR 1.06 (0.83-1.09) 07/31/20 07:26 Assessment/Plan 54 y.o. M PMH uncontrolled diabetes mellitus, HTN presenting from Dr. Dyer's vascular office for management of right foot 4th digit wound. necrotic ulcer of the rt 4th toe dm hyperkalemia increased creatinine bone marrow edema plan continue doxy await for final plan from podiatry
[2020-08-06] MEDS ORDERED: LIDOCAINE HCL/PF 2% SDV 5ML VIAL ONE ×2 (14:52→15:34)
[2020-08-06] MEDS ORDERED: LIDOCAINE HCL 2% (20ML MULTI-DOSE VIAL) ONE (14:59)
[2020-08-06] MEDS ORDERED: MIDAZOLAM HCL 2 MG/2 ML SINGLE DOSE VIAL ONE (15:10)
[2020-08-06] MEDS ORDERED: PROPOFOL 20 ML ONE ×2 (15:16→15:19)
[2020-08-06] MEDS ORDERED: LIDOCAINE HCL 1%, 10 MG/ML (20ML VIAL) NR ONE (15:33)
[2020-08-06] MEDS ORDERED: DEXAMETHASONE SOD PHOSPHATE 4 MG/1 ML VIAL ONE (15:34)
--- NOTE | 2020-08-06 15:36 | PN ---
Physical Exam: SUBJECTIVE: Patient seen and examined. Pt for OBJECTIVE: Vital Signs Period Temp Pulse Resp BP Sys/Chávez Pulse Ox Last 24 Hr 98.4 F-98.7 F 97-107 16-20 143-157/86-96 98-98 GENERAL: The patient is awake, alert, and fully oriented, in no acute distress. LUNGS: Breath sounds equal, clear to auscultation bilaterally, no wheezes, no crackles, no accessory muscle use. HEART: Regular rate and rhythm, S1, S2 without murmur, rub or gallop. ABDOMEN: Soft, nontender, nondistended, normoactive bowel sounds, no guarding, no rebound, no hepatosplenomegaly, no masses. EXTREMITIES: 2+ pulses, warm, well-perfused, no edema. rt 4th toe, ulcerated NEUROLOGICAL: Cranial nerves II through XII grossly intact. Normal speech, gait not observed. Laboratory Results - last 24 hr 08/05/20 08/05/20 08/06/20 17:18 21:48 06:27 WBC RBC Hgb Hct MCV MCH MCHC RDW Plt Count MPV Absolute Neuts (auto) Neutrophils % Lymphocytes % Monocytes % Eosinophils % Basophils % Nucleated RBC % Sodium Potassium Chloride Carbon Dioxide Anion Gap BUN Creatinine Est GFR (CKD-EPI)AfAm Est GFR (CKD-EPI)NonAf POC Glucometer 175 177 93 Random Glucose Calcium Phosphorus Magnesium Blood Type Antibody Screen 08/06/20 08/06/20 08/06/20 08:15 08:15 08:15 WBC 4.0 RBC 3.51 L Hgb 10.1 L Hct 30.7 L MCV 87.5 MCH 28.7 MCHC 32.8 RDW 14.3 Plt Count 133 L MPV 10.3 Absolute Neuts (auto) 2.5 Neutrophils % 62.6 Lymphocytes % 26.8 Monocytes % 7.0 Eosinophils % 2.8 Basophils % 0.8 Nucleated RBC % 0 Sodium 142 Potassium 3.7 Chloride 111 H Carbon Dioxide 24 Anion Gap 8 BUN 12.5 Creatinine 1.0 Est GFR (CKD-EPI)AfAm 97.77 Est GFR (CKD-EPI)NonAf 84.35 POC Glucometer Random Glucose 167 H Calcium 8.6 Phosphorus 2.9 Magnesium 2.0 Blood Type A POSITIVE Antibody Screen Negative 08/06/20 11:36 WBC RBC Hgb Hct MCV MCH MCHC RDW Plt Count MPV Absolute Neuts (auto) Neutrophils % Lymphocytes % Monocytes % Eosinophils % Basophils % Nucleated RBC % Sodium Potassium Chloride Carbon Dioxide Anion Gap BUN Creatinine Est GFR (CKD-EPI)AfAm Est GFR (CKD-EPI)NonAf POC Glucometer 130 Random Glucose Calcium Phosphorus Magnesium Blood Type Antibody Screen Active Medications Generic Name Dose Route Start Last Admin Trade Name Freq PRN Reason Stop Dose Admin Acetaminophen 650 mg 08/04/20 17:38 Tylenol - PO Q4H PRN PAIN LEVEL 7 - 10 Amlodipine Besylate 10 mg 08/05/20 10:00 08/06/20 10:07 Norvasc - PO 10 mg DAILY GL[facility] Administration Atorvastatin Calcium 40 mg 08/04/20 22:00 08/05/20 21:58 Lipitor - PO 40 mg HS GLORIA Administration Doxycycline Hyclate 100 mg 08/04/20 18:00 08/06/20 10:08 Vibramycin - PO Not Given BID@1000,1800 [facility] Fentanyl 50 mcg 08/04/20 17:38 Sublimaze Injection - IVPUSH [id number] PRN PAIN-PACU ORDER X 4 DOSES ONLY Heparin Sodium (Porcine) 5,000 unit 08/04/20 22:00 08/05/20 21:57 Heparin - SQ 5,000 unit TID [facility] Administration Sodium Chloride 1,000 mls @ 50 mls/hr 08/05/20 18:31 08/05/20 20:40 Normal Saline - IV 50 mls/hr ASDIR [facility] Administration Insulin Aspart 1 vial 08/04/20 22:00 08/06/20 11:37 Novolog Vial Sliding Scale - SQ Not Given ACHS REPLACED BY [facility] Protocol Insulin Detemir 30 units 08/04/20 22:00 08/06/20 06:40 Levemir Vial SQ Not Given BID@0700,2200 REPLACED BY [facility] Lisinopril 20 mg 08/05/20 10:00 08/06/20 10:07 Prinivil PO 20 mg DAILY [facility] Administration Ondansetron HCl 4 mg 08/04/20 17:38 Zofran Injection IVPUSH Q6H PRN NAUSEA AND/OR VOMITING Pantoprazole Sodium 40 mg 08/05/20 10:00 08/06/20 10:07 Protonix - PO Not Given DAILY REPLACED BY [facility] Promethazine HCl 12.5 mg 08/04/20 17:38 Phenergan Injection - IVPUSH Q6H PRN NAUSEA-FOR RESCUE AFTER 15 MIN ASSESSMENT/PLAN: Pt is a 54 year old M with PMHx of uncontrolled diabetic nephropathy and neuropathy, HTN, HLD presenting with R foot wound admitted for diabetic foot infection. #R diabetic foot infection -on PO doxy -CTA MRI reviewed -vascular surgery consulted; s/p angio -podiatry consulted; in surgery for R 4th toe amputation #DM uncontrolled -SSI, BGM, levemir 30u BID #CKD -Renal consulted; continue lisinopril #Hx HTN Continue lisinopril #Hx of HLD Continue crestor FEN NS 50cc/hr Monitor electrolytes NPO for surgery (Diabetic/sodium diet) PPx Heparin SQ (resume after surgery) Dispo Admitted to med surg. Diabetic/sodium diet. R 4th toe amputation tomorrow with podiatry ATTENDING PHYSICIAN STATEMENT I saw and evaluated the patient. I reviewed the resident's note and discussed the case with the resident. I agree with the resident's findings and plan as documented. SUBJECTIVE: OBJECTIVE: ASSESSMENT AND PLAN:
--- NOTE | 2020-08-06 16:07 | PN ---
Progress Note, Physician History of Present Illness: Pt seen and examined at bedside. He is awake and alert. He denies dysuria or hematuria. - Current Medication List Current Medications: Active Medications Acetaminophen (Tylenol -) 650 mg PO Q4H PRN PRN Reason: PAIN LEVEL 7 - 10 Amlodipine Besylate (Norvasc -) 10 mg PO DAILY [facility] Last Admin: 08/06/20 10:07 Dose: 10 mg Documented by: Atorvastatin Calcium (Lipitor -) 40 mg PO HS [facility] Last Admin: 08/05/20 21:58 Dose: 40 mg Documented by: Doxycycline Hyclate (Vibramycin -) 100 mg PO BID@1000,1800 [facility] Last Admin: 08/06/20 10:08 Dose: Not Given Documented by: Fentanyl (Sublimaze Injection -) 50 mcg IVPUSH [id number] PRN PRN Reason: PAIN-PACU ORDER X 4 DOSES ONLY Heparin Sodium (Porcine) (Heparin -) 5,000 unit SQ TID [facility] Last Admin: 08/05/20 21:57 Dose: 5,000 unit Documented by: Sodium Chloride (Normal Saline -) 1,000 mls @ 50 mls/hr IV ASDIR [facility] Last Admin: 08/05/20 20:40 Dose: 50 mls/hr Documented by: Insulin Aspart (Novolog Vial Sliding Scale -) 1 vial SQ ACHS [facility]; Protocol Last Admin: 08/06/20 11:37 Dose: Not Given Documented by: Insulin Detemir (Levemir Vial) 30 units SQ BID@0700,2200 [facility] Last Admin: 08/06/20 06:40 Dose: Not Given Documented by: Lisinopril (Prinivil) 20 mg PO DAILY [facility] Last Admin: 08/06/20 10:07 Dose: 20 mg Documented by: Ondansetron HCl (Zofran Injection) 4 mg IVPUSH Q6H PRN PRN Reason: NAUSEA AND/OR VOMITING Pantoprazole Sodium (Protonix -) 40 mg PO DAILY [facility] Last Admin: 08/06/20 10:07 Dose: Not Given Documented by: Promethazine HCl (Phenergan Injection -) 12.5 mg IVPUSH Q6H PRN PRN Reason: NAUSEA-FOR RESCUE AFTER 15 MIN - Objective Vital Signs: Vital Signs Temperature 98.7 F 08/06/20 13:33 Pulse Rate 101 H 08/06/20 13:33 Respiratory Rate 20 08/06/20 13:33 Blood Pressure 143/86 08/06/20 13:33 O2 Sat by Pulse Oximetry (%) 98 08/06/20 13:33 Constitutional: Yes: Calm Eyes: Yes: Conjunctiva Clear HENT: Yes: Atraumatic Neck: Yes: Supple Cardiovascular: Yes: S1, S2 Respiratory: Yes: CTA Bilaterally Gastrointestinal: Yes: Normal Bowel Sounds, Soft Genitourinary: Yes: WNL Musculoskeletal: Yes: WNL Edema: No Neurological: Yes: Oriented Psychiatric: Yes: Oriented Labs: CBC, BMP 08/06/20 08:15 08/06/20 08:15 INR, PTT INR 1.06 (0.83-1.09) 07/31/20 07:26 Problem List - Problems (1) CKD (chronic kidney disease) Code(s): N18.9 - CHRONIC KIDNEY DISEASE, UNSPECIFIED (2) Diabetes mellitus Code(s): E11.9 - TYPE 2 DIABETES MELLITUS WITHOUT COMPLICATIONS (3) HTN (hypertension) Code(s): I10 - ESSENTIAL (PRIMARY) HYPERTENSION Assessment/Plan Current Medications Generic Name Dose Route Start Last Admin Trade Name Freq PRN Reason Stop Dose Admin Acetaminophen 650 mg 08/04/20 17:38 Tylenol - PO Q4H PRN PAIN LEVEL 7 - 10 Amlodipine Besylate 10 mg 08/05/20 10:00 08/06/20 10:07 Norvasc - PO 10 mg DAILY [facility]OR[facility] Administration Atorvastatin Calcium 40 mg 08/04/20 22:00 08/05/20 21:58 Lipitor - PO 40 mg HS GLORIA Administration Doxycycline Hyclate 100 mg 08/04/20 18:00 08/06/20 10:08 Vibramycin - PO Not Given BID@1000,1800 [facility] Fentanyl 50 mcg 08/04/20 17:38 Sublimaze Injection - IVPUSH [id number] PRN PAIN-PACU ORDER X 4 DOSES ONLY Heparin Sodium (Porcine) 5,000 unit 08/04/20 22:00 08/05/20 21:57 Heparin - SQ 5,000 unit TID [facility] Administration Sodium Chloride 1,000 mls @ 50 mls/hr 08/05/20 18:31 08/05/20 20:40 Normal Saline - IV 50 mls/hr ASDIR GLOR[facility] Administration Insulin Aspart 1 vial 08/04/20 22:00 08/06/20 11:37 Novolog Vial Sliding Scale - SQ Not Given ACHS [facility] Protocol Insulin Detemir 30 units 08/04/20 22:00 08/06/20 06:40 Levemir Vial SQ Not Given BID@0700,2200 [facility] Lisinopril 20 mg 08/05/20 10:00 08/06/20 10:07 Prinivil PO 20 mg DAILY [facility] Administration Ondansetron HCl 4 mg 08/04/20 17:38 Zofran Injection IVPUSH Q6H PRN NAUSEA AND/OR VOMITING Pantoprazole Sodium 40 mg 08/05/20 10:00 08/06/20 10:07 Protonix - PO Not Given DAILY [facility] Promethazine HCl 12.5 mg 08/04/20 17:38 Phenergan Injection - IVPUSH Q6H PRN NAUSEA-FOR RESCUE AFTER 15 MIN Impression 1. CKD 2. HTN 3. DM 4. lower ext wound Plan - renal function stable, fluids likely helped - cont rachel - will need outpt follow up - avoid nephrotoxins - cont wound care Thank You Dr Ibarra
--- NOTE | 2020-08-06 16:08 | OP ---
Operative Note - Note: Operative Date: 08/06/20 Pre-Operative Diagnosis: right fourth digit gangrene Operation: right fourth digit amputation Post-Operative Diagnosis: Same as Pre-op Surgeon: Melchor Villeda Anesthesia: Local, MAC Specimens Removed: right fourth digit Estimated Blood Loss (mls): 10 Operative Report Dictated: Yes
--- NOTE | 2020-08-06 16:50 | OP ---
DATE OF OPERATION: 08/06/2020 PREOPERATIVE DIAGNOSIS: Right fourth toe dry gangrene. POSTOPERATIVE DIAGNOSIS: Right fourth toe dry gangrene. PROCEDURE: Right fourth digit amputation. SURGEON: Melchor Villeda DPM. MUSEUM TECHNICIAN: None. ANESTHESIA: IV sedation with local. HEMOSTASIS: Surgical dissection. PATHOLOGY: Right 4th digit, right 4th metatarsal cartilaginous cap. COMPLICATIONS: None. DESCRIPTION OF PROCEDURE: Patient was brought to the operating room and placed on the operating table in a supine position. Following the induction of IV sedation, local anesthesia was achieved using 10 mL of 2% lidocaine plain. The right foot was scrubbed, prepped, and draped in the usual sterile fashion. Attention was directed to the right 4th digit, where a dry gangrenous 4th digit was visualized and appreciated. I began by performing a 3-cm linear longitudinal incision overlying the 4th metatarsophalangeal joint. The incision was continued circumferentially about the 4th toe. The incision was deepened using sharp and blunt dissection, taking care to retract vital neural and vascular structures. All bleeders were cauterized and ligated as appropriate. Next, the 4th digit was disarticulated at the level of the 4th metatarsophalangeal joint. All deep capsular and ligamentous soft tissue structures were detached from the base of the proximal phalanx until the 4th digit was entirely freed. The 4th digit was passed from the operative field to pathology. Next, a linear capsulotomy was performed over the 4th metatarsal head to expose the 4th metatarsal head. The sagittal saw was used to remove the 4th metatarsal cartilaginous cap. This was sectioned for both bone culture and proximal bone pathology. The surgical site was copiously irrigated with sterile saline. The skin was reapproximated and maintained using 3-0 nylon in a simple interrupted suture fashion. Following conclusion of the procedure, the surgical site was covered with Xeroform, and a sterile compressive dressing was applied consisting of sterile gauze, Kerlix, and an Mason wrap. The patient tolerated the procedure and anesthesia well without complications. He was transferred from the operating room to recovery unit with vital signs stable and neurovascular intact to the right foot. DEREJE ROJAS/[id number] cc: [facility] Podiat[facility]
--- NOTE | 2020-08-06 17:20 | PN ---
Teaching Attending Note Name of Resident: Val Bartholomew ATTENDING PHYSICIAN STATEMENT I saw and evaluated the patient. I reviewed the resident's note and discussed the case with the resident. I agree with the resident's findings and plan as documented. SUBJECTIVE: Feels well, no complaints, awaiting surgery later. No fever/chills/SOB. OBJECTIVE: Afebrile, Hemodynamically Stable. Last Vital Signs Temp Pulse Resp BP Pulse Ox 97.7 F 85 17 142/79 97 08/06/20 16:08 08/06/20 16:45 08/06/20 16:45 08/06/20 16:45 08/06/20 16:45 Heart - S1, S2, RRR Lungs - clear to auscultation Abdomen - Soft, non-tender. Bowel Sounds normal Extremities - R 4th toe gangrene distal half, no ascending cellulitis. Cool peripheral LEs. Neuro - AAO x 3. Tone/Power normal. Laboratory Results - last 24 hr 08/05/20 08/05/20 08/06/20 17:18 21:48 06:27 WBC RBC Hgb Hct MCV MCH MCHC RDW Plt Count MPV Absolute Neuts (auto) Neutrophils % Lymphocytes % Monocytes % Eosinophils % Basophils % Nucleated RBC % Sodium Potassium Chloride Carbon Dioxide Anion Gap BUN Creatinine Est GFR (CKD-EPI)AfAm Est GFR (CKD-EPI)NonAf POC Glucometer 175 177 93 Random Glucose Calcium Phosphorus Magnesium Blood Type Antibody Screen 08/06/20 08/06/20 08/06/20 08:15 08:15 08:15 WBC 4.0 RBC 3.51 L Hgb 10.1 L Hct 30.7 L MCV 87.5 MCH 28.7 MCHC 32.8 RDW 14.3 Plt Count 133 L MPV 10.3 Absolute Neuts (auto) 2.5 Neutrophils % 62.6 Lymphocytes % 26.8 Monocytes % 7.0 Eosinophils % 2.8 Basophils % 0.8 Nucleated RBC % 0 Sodium 142 Potassium 3.7 Chloride 111 H Carbon Dioxide 24 Anion Gap 8 BUN 12.5 Creatinine 1.0 Est GFR (CKD-EPI)AfAm 97.77 Est GFR (CKD-EPI)NonAf 84.35 POC Glucometer Random Glucose 167 H Calcium 8.6 Phosphorus 2.9 Magnesium 2.0 Blood Type A POSITIVE Antibody Screen Negative 08/06/20 11:36 WBC RBC Hgb Hct MCV MCH MCHC RDW Plt Count MPV Absolute Neuts (auto) Neutrophils % Lymphocytes % Monocytes % Eosinophils % Basophils % Nucleated RBC % Sodium Potassium Chloride Carbon Dioxide Anion Gap BUN Creatinine Est GFR (CKD-EPI)AfAm Est GFR (CKD-EPI)NonAf POC Glucometer 130 Random Glucose Calcium Phosphorus Magnesium Blood Type Antibody Screen Current Medications Generic Name Dose Route Start Last Admin Trade Name Freq PRN Reason Stop Dose Admin Acetaminophen 650 mg 08/04/20 17:38 Tylenol - PO Q4H PRN PAIN LEVEL 7 - 10 Amlodipine Besylate 10 mg 08/05/20 10:00 08/06/20 10:07 Norvasc - PO 10 mg DAILY [facility] Administration Atorvastatin Calcium 40 mg 08/04/20 22:00 08/05/20 21:58 Lipitor - PO 40 mg HS GLORIA Administration Doxycycline Hyclate 100 mg 08/04/20 18:00 08/06/20 10:08 Vibramycin - PO Not Given BID@1000,1800 [facility] Fentanyl 50 mcg 08/04/20 17:38 Sublimaze Injection - IVPUSH [id number] PRN PAIN-PACU ORDER X 4 DOSES ONLY Heparin Sodium (Porcine) 5,000 unit 08/04/20 22:00 08/05/20 21:57 Heparin - SQ 5,000 unit TID [facility] Administration Sodium Chloride 1,000 mls @ 50 mls/hr 08/05/20 18:31 08/05/20 20:40 Normal Saline - IV 50 mls/hr ASDIR [facility] Administration Insulin Aspart 1 vial 08/04/20 22:00 08/06/20 11:37 Novolog Vial Sliding Scale - SQ Not Given ACHS [facility] Protocol Insulin Detemir 30 units 08/04/20 22:00 08/06/20 06:40 Levemir Vial SQ Not Given BID@0700,2200 [facility] Lisinopril 20 mg 08/05/20 10:00 08/06/20 10:07 Prinivil PO 20 mg DAILY [facility] Administration Ondansetron HCl 4 mg 08/04/20 17:38 Zofran Injection IVPUSH Q6H PRN NAUSEA AND/OR VOMITING Pantoprazole Sodium 40 mg 08/05/20 10:00 08/06/20 10:07 Protonix - PO Not Given DAILY [facility] Promethazine HCl 12.5 mg 08/04/20 17:38 Phenergan Injection - IVPUSH Q6H PRN NAUSEA-FOR RESCUE AFTER 15 MIN Home Medications Medication Instructions Recorded Amlodipine Besylate [Norvasc -] 10 mg PO DAILY 07/30/20 Ammonium Lactate Cream [Lac-Hydrin 1 applic TP DAILY PRN 07/30/20 12% *Cream*] Aspirin [ASA -] 81 mg PO DAILY 07/30/20 Basaglar Kwikpen U-100 35 unit SQ HS 07/30/20 Diflorasone Diacetate/Emoll 30 gm TP DAILY PRN 07/30/20 [Apexicon E 0.05% Cream] Glipizide 10 mg PO BID 07/30/20 Lansoprazole [Prevacid] 30 mg PO DAILY 07/30/20 Lisinopril 20 mg PO DAILY 07/30/20 Metformin HCl [Glucophage] 1,000 mg PO BID 07/30/20 Simvastatin 40 mg PO DAILY 07/30/20 Sitagliptin Phosphate [Januvia] 100 mg PO DAILY 07/30/20 ASSESSMENT AND PLAN: 54 year old male with DM 2, Diabetic Nephropathy and Neuropathy, HTN, HLD, CKD 3, GERD, presents with R 4th toe ulcer/discoloration. 1. 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 Afebrile, Hemodynamically Stable, Blood Cx negative Treated with Doxycycline/Zosyn - Zosyn discontinued and Doxy continued as per ID. For R 4th toe amputation by Podiatry later today. NPO. VNS for Wound Care post-op 2. BRICE on CKD 3 - resolved. Creat at baseline. IV hydration while NPO. 3. DM 2 - Metformin, Januvia, Basaglar held. Maintain on Levemir/Novolog sliding scale. 4. HTN - Continue Norvasc, Lisinopril. 5. HLD - Continue Lipitor (Home Simvastatin changed to Lipitor due to potential interaction with Norvasc). 6. GERD - Continue PPI DVT Px - Heparin SQ
[2020-08-06] MEDS ORDERED: ONDANSETRON 4 MG/2 ML VIAL IVPUSH PRN ×2 (17:21→17:27)
[2020-08-06] MEDS ORDERED: PROMETHAZINE HCL 25 MG/1 ML VIAL IVPUSH PRN (17:27)
[2020-08-06] MEDS ORDERED: SODIUM CHLORIDE 1,000 ML IV SCH (17:27)
[2020-08-06] MEDS ORDERED: ACETAMINOPHEN 325 MG TABLET (FP) PO PRN (17:27)
[2020-08-06] MEDS: HEPARIN NA (PORCINE) 5,000 UNITS/ML 1ML VIAL SQ SCH (21:28)
[2020-08-06] MEDS ORDERED: ATORVASTATIN CA 40 MG TABLET (FP) PO SCH (22:00)
[2020-08-07] MEDS: HEPARIN NA (PORCINE) 5,000 UNITS/ML 1ML VIAL SQ SCH ×2 (05:39→14:30)
[2020-08-07] MEDS: INSULIN (LEVEMIR) 100 UNITS/ML UNITS SQ SCH (06:33)
[2020-08-07] MEDS: INSULIN SLIDING SCALE (NOVOLOG) 1 VIAL SQ SCH ×2 (06:33→12:14)
--- NOTE | 2020-08-07 07:47 | PN ---
Progress Note (short form) - Note Progress Note: Podiatry F/U: Seen/evaluated at bedside, no apparent distress. Patient states that pain is well controlled. He denies F/V/N/C/SOB/CP. Currently afebrile. S/p right fourth digit amputation POD#1. BRITTNEY: R foot: Surgical dressing clean, dry, intact. There is no active bleeding, no bandage strikethrough. Pedal pulses weakly palpable, TG wnl, CFT brisk to remaining digits. Sutures are well coapted along fourth ray, no dehiscence noted. There is no purulent drainage, no fluctuance, no streaking ascending cellulitis, no signs of active infection. No ischemic changes to surgical site. No tenderness to palpation. OR Cx: pending Postoperative xray shows stable fourth digit amputation site, fourth metatarsal head resection Imp: 54 year old diabetic male s/p right fourth digit amputation for dry gangrene POD#1 1. Abx per infectious disease 2. Dressing change performed. Xeroform and dry sterile dressing applied to right foot 3. WB to the right foot with surgical shoe 4. All gangrenous tissue removed with toe amputation. From my standpoint he can be discharged. He needs follow up this Sunday with me in the wound healing center. [phone]. No further intervention required. Navdeep Villeda DPM
[2020-08-07 08:24] LABS: BASO % 0.7 % (0-2.0); EOS % 3.6 % (0-4.5); HEMATOCRIT 30.3 % (35.4-49); HEMOGLOBIN 10.2 GM/dL (11.7-16.9); LYMPH % 26.6 % (8-40); MCH 29.6 pg (25.7-33.7); MCHC 33.6 g/dl (32.0-35.9); MEAN CELL VOLUME 88.2 fl (80-96); MEAN PLT VOLUME 10.8 fl (7.5-11.1); MONO % 8.5 % (3.8-10.2); NEUT % 60.6 % (42.8-82.8); PLATELET COUNT 133 K/MM3 (134-434); RBC 3.44 M/mm3 (4.00-5.60); RDW 14.6 % (11.9-15.9)
[2020-08-07 08:35] LABS: ALBUMIN 3.3 g/dl (3.4-5.0); BILIRUBIN,TOTAL 0.4 mg/dL (0.2-1); BLOOD UREA NITROGEN 9.7 mg/dL (7-18); CALCIUM 8.8 mg/dL (8.5-10.1); CREATININE 0.9 mg/dL (0.55-1.3); PHOSPHOROUS 3.4 mg/dL (2.5-4.9); TOT PROT 6.1 g/dl (6.4-8.2)
[2020-08-07] MEDS: DOXYCYCLINE HYCLATE 100 MG CAPSULE PO SCH (09:31)
[2020-08-07] MEDS ORDERED: LISINOPRIL 20 MG TABLET PO SCH (10:00)
[2020-08-07] MEDS ORDERED: amLODIPine BESYLATE 10 MG TABLET (FP) PO SCH (10:00)
[2020-08-07] MEDS ORDERED: PANTOPRAZOLE 40 MG TABLET PO SCH (10:00)
--- NOTE | 2020-08-07 11:45 | PN ---
Progress Note, Physician History of Present Illness: Pt is alert, afebrile, feeling well. Denies pain or having any other complaints. - Current Medication List Current Medications: Active Medications Acetaminophen (Tylenol -) 650 mg PO Q4H PRN PRN Reason: PAIN LEVEL 7 - 10 Amlodipine Besylate (Norvasc -) 10 mg PO DAILY [facility] Last Admin: 08/07/20 09:31 Dose: 10 mg Documented by: Atorvastatin Calcium (Lipitor -) 40 mg PO HS [facility] Last Admin: 08/06/20 21:29 Dose: 40 mg Documented by: Doxycycline Hyclate (Vibramycin -) 100 mg PO BID@1000,1800 [facility] Last Admin: 08/07/20 09:31 Dose: 100 mg Documented by: Fentanyl (Sublimaze Injection -) 25 mcg IVPUSH Q5M PRN PRN Reason: PAIN-PACU ORDER X 4 DOSES ONLY Fentanyl (Sublimaze Injection -) 50 mcg IVPUSH Q5M PRN PRN Reason: PAIN-PACU ORDER X 4 DOSES ONLY Heparin Sodium (Porcine) (Heparin -) 5,000 unit SQ TID [facility] Last Admin: 08/07/20 05:39 Dose: 5,000 unit Documented by: Insulin Aspart (Novolog Vial Sliding Scale -) 1 vial SQ [facility]; Protocol Last Admin: 08/07/20 06:33 Dose: Not Given Documented by: Insulin Detemir (Levemir Vial) 30 units SQ BID@0700,2200 [facility] Last Admin: 08/07/20 06:33 Dose: 30 units Documented by: Lisinopril (Prinivil) 20 mg PO DAILY [facility] Last Admin: 08/07/20 09:31 Dose: 20 mg Documented by: Ondansetron HCl (Zofran Injection) 4 mg IVPUSH Q6H PRN PRN Reason: NAUSEA AND/OR VOMITING Pantoprazole Sodium (Protonix -) 40 mg PO DAILY [facility] Last Admin: 08/07/20 09:31 Dose: 40 mg Documented by: Promethazine HCl (Phenergan Injection -) 12.5 mg IVPUSH Q6H PRN PRN Reason: NAUSEA-FOR RESCUE AFTER 15 MIN - Objective Vital Signs: Vital Signs Temperature 99.5 F 08/07/20 05:42 Pulse Rate 86 08/07/20 05:42 Respiratory Rate 20 08/07/20 05:42 Blood Pressure 117/67 08/07/20 05:42 O2 Sat by Pulse Oximetry (%) 95 08/07/20 05:42 Constitutional: Yes: No Distress, Calm Cardiovascular: Yes: Regular Rate and Rhythm Respiratory: Yes: Regular Gastrointestinal: Yes: Normal Bowel Sounds, Soft Edema: Yes Edema: RLE: 1+ Wound/Incision: Yes: Dressing Dry and Intact (Rt foot, +edema) Neurological: Yes: Alert Labs: CBC, BMP 08/07/20 07:20 08/07/20 07:20 INR, PTT INR 1.06 (0.83-1.09) 07/31/20 07:26 Laboratory Last Values WBC 5.0 K/mm3 (4.0-10.0) 08/07/20 07:20 RBC 3.44 M/mm3 (4.00-5.60) L 08/07/20 07:20 Hgb 10.2 GM/dL (11.7-16.9) L 08/07/20 07:20 Hct 30.3 % (35.4-49) L 08/07/20 07:20 MCV 88.2 fl (80-96) 08/07/20 07:20 MCH 29.6 pg (25.7-33.7) 08/07/20 07:20 MCHC 33.6 g/dl (32.0-35.9) 08/07/20 07:20 RDW 14.6 % (11.9-15.9) 08/07/20 07:20 Plt Count 133 K/MM3 (134-434) L 08/07/20 07:20 MPV 10.8 fl (7.5-11.1) 08/07/20 07:20 Absolute Neuts (auto) 3.1 K/mm3 (1.5-8.0) 08/07/20 07:20 Neutrophils % 60.6 % (42.8-82.8) 08/07/20 07:20 Lymphocytes % 26.6 % (8-40) 08/07/20 07:20 Monocytes % 8.5 % (3.8-10.2) 08/07/20 07:20 Eosinophils % 3.6 % (0-4.5) 08/07/20 07:20 Basophils % 0.7 % (0-2.0) 08/07/20 07:20 Nucleated RBC % 0 % (0-0) 08/07/20 07:20 ESR 13 mm/hr (0-20) 07/30/20 16:04 PT with INR 12.50 SEC (9.7-13.0) 07/31/20 07:26 INR 1.06 (0.83-1.09) 07/31/20 07:26 PTT (Actin FS) 30.4 SECONDS (25.2-36.5) 07/31/20 07:26 Sodium 142 mmol/L (136-145) 08/07/20 07:20 Potassium 4.0 mmol/L (3.5-5.1) 08/07/20 07:20 Chloride 108 mmol/L (98-107) H 08/07/20 07:20 Carbon Dioxide 27 mmol/L (21-32) 08/07/20 07:20 Anion Gap 7 MMOL/L (8-16) L 08/07/20 07:20 BUN 9.7 mg/dL (7-18) 08/07/20 07:20 Creatinine 0.9 mg/dL (0.55-1.3) 08/07/20 07:20 Est GFR (CKD-EPI)AfAm 111.05 08/07/20 07:20 Est GFR (CKD-EPI)NonAf 95.81 08/07/20 07:20 POC Glucometer 78 UNITS (80-120) 08/07/20 06:21 Random Glucose 95 mg/dL (74-106) 08/07/20 07:20 Calcium 8.8 mg/dL (8.5-10.1) 08/07/20 07:20 Phosphorus 3.4 mg/dL (2.5-4.9) 08/07/20 07:20 Magnesium 2.0 mg/dL (1.8-2.4) 08/07/20 07:20 Total Bilirubin 0.4 mg/dL (0.2-1) 08/07/20 07:20 AST 25 U/L (15-37) 08/07/20 07:20 ALT 42 U/L (13-61) 08/07/20 07:20 Alkaline Phosphatase 47 U/L (45-117) 08/07/20 07:20 C-Reactive Protein < 0.3 MG/DL (0.00-0.3) 07/31/20 07:26 Total Protein 6.1 g/dl (6.4-8.2) L 08/07/20 07:20 Albumin 3.3 g/dl (3.4-5.0) L 08/07/20 07:20 Urine Color Yellow 07/31/20 14:30 Urine Appearance Clear 07/31/20 14:30 Urine pH 5.5 (5.0-8.0) 07/31/20 14:30 Ur Specific Brigantine 1.025 (1.010-1.035) 07/31/20 14:30 Urine Protein Trace (NEGATIVE) 07/31/20 14:30 Urine Glucose (UA) 3+ (NEGATIVE) H 07/31/20 14:30 Urine Ketones Negative (NEGATIVE) 07/31/20 14:30 Urine Blood Negative (NEGATIVE) 07/31/20 14:30 Urine Nitrite Negative (NEGATIVE) 07/31/20 14:30 Urine Bilirubin Negative (NEGATIVE) 07/31/20 14:30 Urine Urobilinogen 0.2 mg/dL (0.2-1.0) 07/31/20 14:30 Ur Leukocyte Esterase Negative (NEGATIVE) 07/31/20 14:30 Ur Random Creatinine 71.0 mg/dL (30-150) 07/31/20 14:45 U Random Total Protein 28.0 mg/dL (0-11.9) H 07/31/20 14:45 Protein/Creatinin Ratio 0.4 mg/dL 07/31/20 14:45 COVID-19 (ANNMARIE) Not detected (Not Detected) 07/30/20 16:09 Blood Type A POSITIVE 08/06/20 08:15 Antibody Screen Negative 08/06/20 08:15 Microbiology 07/30/20 16:04 Blood - Peripheral Venous Blood Culture - Final NO GROWTH AFTER 5 DAYS INCUBATION 07/30/20 16:04 Blood - Peripheral Venous Blood Culture - Final NO GROWTH AFTER 5 DAYS INCUBATION - ....Imaging X-ray: Report Reviewed Problem List - Problems (1) CKD (chronic kidney disease) Code(s): N18.9 - CHRONIC KIDNEY DISEASE, UNSPECIFIED (2) Diabetes mellitus Code(s): E11.9 - TYPE 2 DIABETES MELLITUS WITHOUT COMPLICATIONS (3) Gangrene Code(s): I96 - GANGRENE, NOT ELSEWHERE CLASSIFIED (4) HTN (hypertension) Code(s): I10 - ESSENTIAL (PRIMARY) HYPERTENSION Assessment/Plan Rt 4th toe gangrene/necrosis s/p amputation DM -- Pt without distress, temp of 99.5F - continue monitor temps -- follow up bone culture results -- continue antibiotics -- Wound care Podiatry following
[2020-08-07 13:58] VITALS: BP 137/86; PULSE 88; TEMP 98.5
--- NOTE | 2020-08-07 14:28 | DS ---
Physical Exam: SUBJECTIVE: Patient seen and examined OBJECTIVE: Vital Signs Period Temp Pulse Resp BP Sys/Chávez Pulse Ox Last 24 Hr 97.6 F-99.5 F 83-88 15-20 107-149/67-86 95-99 PHYSICAL EXAM GENERAL: The patient is awake, alert, and fully oriented, in no acute distress. HEAD: Normal with no signs of trauma. EYES: PERRL, extraocular movements intact, sclera anicteric, conjunctiva clear. ENT: Ears normal, nares patent, oropharynx clear without exudates, moist mucous membranes. NECK: Trachea midline, full range of motion, supple. LUNGS: Breath sounds equal, clear to auscultation bilaterally, no wheezes, no crackles, no accessory muscle use. HEART: Regular rate and rhythm, S1, S2 without murmur, rub or gallop. ABDOMEN: Soft, nontender, nondistended, normoactive bowel sounds, no guarding, no rebound, no hepatosplenomegaly, no masses. EXTREMITIES: 2+ pulses, warm, well-perfused, no edema. NEUROLOGICAL: Cranial nerves II through XII grossly intact. Normal speech, gait not observed. PSYCH: Normal mood, normal affect. SKIN: Warm, dry, normal turgor, no rashes or lesions noted. LABS Laboratory Results - last 24 hr 08/06/20 08/07/20 08/07/20 21:26 06:21 07:20 WBC 5.0 RBC 3.44 L Hgb 10.2 L Hct 30.3 L MCV 88.2 MCH 29.6 MCHC 33.6 RDW 14.6 Plt Count 133 L MPV 10.8 Absolute Neuts (auto) 3.1 Neutrophils % 60.6 Lymphocytes % 26.6 Monocytes % 8.5 Eosinophils % 3.6 Basophils % 0.7 Nucleated RBC % 0 Sodium Potassium Chloride Carbon Dioxide Anion Gap BUN Creatinine Est GFR (CKD-EPI)AfAm Est GFR (CKD-EPI)NonAf POC Glucometer 183 78 Random Glucose Calcium Phosphorus Magnesium Total Bilirubin AST ALT Alkaline Phosphatase Total Protein Albumin 08/07/20 08/07/20 07:20 11:50 WBC RBC Hgb Hct MCV MCH MCHC RDW Plt Count MPV Absolute Neuts (auto) Neutrophils % Lymphocytes % Monocytes % Eosinophils % Basophils % Nucleated RBC % Sodium 142 Potassium 4.0 Chloride 108 H Carbon Dioxide 27 Anion Gap 7 L BUN 9.7 Creatinine 0.9 Est GFR (CKD-EPI)AfAm 111.05 Est GFR (CKD-EPI)NonAf 95.81 POC Glucometer 177 Random Glucose 95 Calcium 8.8 Phosphorus 3.4 Magnesium 2.0 Total Bilirubin 0.4 AST 25 ALT 42 Alkaline Phosphatase 47 Total Protein 6.1 L Albumin 3.3 L HOSPITAL COURSE: Date of Admission:07/30/20 Date of Discharge: 08/07/20 Discharge Summary Problems reviewed: Yes Reason For Visit: GANGRENE Current Active Problems CKD (chronic kidney disease) (Acute) Diabetes mellitus (Acute) Gangrene (Acute) HTN (hypertension) (Acute) Condition: Improved - Instructions Diet, Activity, Other Instructions: You came to the hospital because your 4th toe on the right foot became infected and gangrenous. You received IV antibiotics to help with the infection. You had an amputation to remove the toe. You will have a nurse visit you on Sunday to help with changing the dressings, and you will follow up with Dr. Villeda in his office on Sunday. You will have to complete your antibiotics as well. Medications Please START doxycycline 100mg twice a day for 3 more days until completion. Please resume all other home medications as prescribed. Follow Ups 1. Primary care physician, [facility], within 1 week for overall health care management. 2. [employer], Dr. Villeda, on SundayAugust 10 for follow up on your amputated toe. 3. Wound care doctor, Dr. Dyer, within 1 week for management of the amputation. 4. Hose Tubing Backer, Dr. Ibarra, within 2 weeks. If you have any new, worsening or changing symptoms please return to the ED or call 911. Referrals: [facility] [place] [Provider Group] - 1 Week Jinny Del Rio MD [Staff Physician] - 2 Weeks Melchor Villeda MD [Staff Physician] - 08/10/20 Hugh Dyer DO [Staff Physician] - 1 Week Julia Ibarra MD [Staff Physician] - 2 Weeks Disposition: VNS/HOME HEALTH CARE - Home Medications Comprehensive Discharge Medication List: Ambulatory Orders Amlodipine Besylate [Norvasc -] 10 mg PO DAILY 07/30/20 Ammonium Lactate Cream [Lac-Hydrin 12% Cream -] 1 applic TP DAILY PRN 07/30/20 Aspirin [ASA -] 81 mg PO DAILY 07/30/20 Basaglar Cortezikpen U-100 35 unit SQ HS 07/30/20 Diflorasone Diacetate/Emoll [Apexicon E 0.05% Cream] 30 gm TP DAILY PRN 07/30/20 Glipizide 10 mg PO BID 07/30/20 Lansoprazole [Prevacid] 30 mg PO DAILY 07/30/20 Lisinopril 20 mg PO DAILY 07/30/20 Metformin HCl [Glucophage] 1,000 mg PO BID 07/30/20 Simvastatin 40 mg PO DAILY 07/30/20 Sitagliptin Phosphate [Januvia] 100 mg PO DAILY 07/30/20 Doxycycline Hyclate [Vibramycin -] 100 mg PO BID@1000,1800 3 Days #6 capsule 08/07/20 - Discharge Referral Referred to [facility] No ATTENDING PHYSICIAN STATEMENT I saw and evaluated the patient. I reviewed the resident's note and discussed the case with the resident. I agree with the resident's findings and plan as documented. SUBJECTIVE: OBJECTIVE: ASSESSMENT AND PLAN:
--- NOTE | 2020-08-07 16:18 | PN ---
Teaching Attending Note Name of Resident: Val Bartholomew ATTENDING PHYSICIAN STATEMENT I saw and evaluated the patient. I reviewed the resident's note and discussed the case with the resident. I agree with the resident's findings and plan as documented. SUBJECTIVE: Feels well, no complaints, s/p Sx. No fever/chills/SOB. OBJECTIVE: Afebrile, Hemodynamically Stable. Last Vital Signs Temp Pulse Resp BP Pulse Ox 98.5 F 88 18 137/86 98 08/07/20 13:57 08/07/20 13:57 08/07/20 13:57 08/07/20 13:57 08/07/20 13:57 Heart - S1, S2, RRR Lungs - clear to auscultation Abdomen - Soft, non-tender. Bowel Sounds normal Extremities - Surgical Site dressed s/p R 4th toe amputation - no ascending cellulitis. Cool peripheral LEs. Neuro - AAO x 3. Tone/Power normal. Laboratory Results - last 24 hr 08/06/20 08/07/20 08/07/20 21:26 06:21 07:20 WBC 5.0 RBC 3.44 L Hgb 10.2 L Hct 30.3 L MCV 88.2 MCH 29.6 MCHC 33.6 RDW 14.6 Plt Count 133 L MPV 10.8 Absolute Neuts (auto) 3.1 Neutrophils % 60.6 Lymphocytes % 26.6 Monocytes % 8.5 Eosinophils % 3.6 Basophils % 0.7 Nucleated RBC % 0 Sodium Potassium Chloride Carbon Dioxide Anion Gap BUN Creatinine Est GFR (CKD-EPI)AfAm Est GFR (CKD-EPI)NonAf POC Glucometer 183 78 Random Glucose Calcium Phosphorus Magnesium Total Bilirubin AST ALT Alkaline Phosphatase Total Protein Albumin 08/07/20 08/07/20 07:20 11:50 WBC RBC Hgb Hct MCV MCH MCHC RDW Plt Count MPV Absolute Neuts (auto) Neutrophils % Lymphocytes % Monocytes % Eosinophils % Basophils % Nucleated RBC % Sodium 142 Potassium 4.0 Chloride 108 H Carbon Dioxide 27 Anion Gap 7 L BUN 9.7 Creatinine 0.9 Est GFR (CKD-EPI)AfAm 111.05 Est GFR (CKD-EPI)NonAf 95.81 POC Glucometer 177 Random Glucose 95 Calcium 8.8 Phosphorus 3.4 Magnesium 2.0 Total Bilirubin 0.4 AST 25 ALT 42 Alkaline Phosphatase 47 Total Protein 6.1 L Albumin 3.3 L Discharge Medications Medication Instructions Recorded Amlodipine Besylate [Norvasc -] 10 mg PO DAILY 07/30/20 Ammonium Lactate Cream [Lac-Hydrin 1 applic TP DAILY PRN 07/30/20 12% Cream -] Aspirin [ASA -] 81 mg PO DAILY 07/30/20 Faustina Nguyenpen U-100 35 unit SQ HS 07/30/20 Diflorasone Diacetate/Emoll 30 gm TP DAILY PRN 07/30/20 [Apexicon E 0.05% Cream] Glipizide 10 mg PO BID 07/30/20 Lansoprazole [Prevacid] 30 mg PO DAILY 07/30/20 Lisinopril 20 mg PO DAILY 07/30/20 Metformin HCl [Glucophage] 1,000 mg PO BID 07/30/20 Lipitor 40mg daily 08/07/20 Sitagliptin Phosphate [Januvia] 100 mg PO DAILY 07/30/20 Doxycycline Hyclate [Vibramycin -] 100 mg PO BID@1000,1800 3 Days #6 08/07/20 capsule ASSESSMENT AND PLAN: 54 year old male with DM 2, Diabetic Nephropathy and Neuropathy, HTN, HLD, CKD 3, GERD, presents with R 4th toe ulcer/discoloration. 1. R 4th toe gangrene/necrotic ulcer POD 1 s/p R 4th toe amputation by Podiatry, s/p dressing change today by Podiatry -Xeroform and dry sterile dressing applied to right foot. 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 Afebrile, Hemodynamically Stable, Blood Cx negative Treated with Doxycycline/Zosyn - Zosyn discontinued and Doxy continued as per ID - for re-eval at Podiatry/Wound care on Sunday once Surgical Cx results are back. VNS for Wound Care post-op Follow up Podiatry appt Friday 08/10 Podiatry recommends weight bearing to the right foot with surgical shoe Evaluated by PT - stable for discharge with surgical shoe. 2. BRICE on CKD 3 - resolved. Creat at baseline. 3. DM 2 - Metformin, Januvia, Basaglar to resume on discharge 4. HTN - Continue Norvasc, Lisinopril. 5. HLD - Switched to Lipitor (Home Simvastatin changed to Lipitor due to potential interaction with Norvasc). 6. GERD - Continue PPI Medically stable for discharge with VNS and Podiatry/Wound Care follow up.
--- NOTE | 2020-08-10 15:31 | OP ---
DATE OF OPERATION: 08/04/2020 PREOPERATIVE DIAGNOSIS: Right toe gangrene. POSTOPERATIVE DIAGNOSIS: Right toe gangrene. PROCEDURE: Aortogram, right lower extremity angiogram. SURGEON: Hugh Malin DO ANESTHESIA: Fractional. 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 His hemoglobin A1c was found to be upwards of 12 and he needed to be admitted for IV antibiotics. Patient came in through the ER and was admitted. It was then decided that patient would need an angiogram to see why he has gangrene. Patient was consented for the procedure, understanding all risks, benefits and alternatives, and was then taken to the operating room. Once in the operating room, was laid on the operating table in the supine manner. The area of the right and left groin was prepped and draped in a sterile surgical manner. We then injected 10 mL of lidocaine 1% over the left common femoral artery. We then took a micropuncture needle, punctured the left common femoral artery. Micropuncture wire was inserted. Micropuncture sheath was inserted. Traditional 5-Polish sheath was inserted. We then placed a 0.035 floppy guidewire up into the aorta followed by Omni Flush catheter. We then shot an aortogram by hand injection showing that the aorta and the iliac arteries were without any disease. We then used our 0.035 floppy wire, went up and over to the right common femoral artery and Omni Flush catheter followed. We then shot an angiogram of the right lower extremity showing that the common femoral artery, the profunda and the SFA were patent. The popliteal artery was patent. The TP trunk was patent and patient had 2-vessel runoff in the form of DP and PT going into the foot. However, patient does have some small vessel disease in the foot, but there is adequate flow and perfusion to the foot. At this point we decided no intervention was needed. We brought our Omni Flush catheter up and over. We then went ahead and removed our sheath from the left common femoral artery. Pressure was delivered for 5 minutes after which there was no more bleeding. Area was wet and dried and Dermabond was placed. Patient tolerated the procedure with no complications. Patient transferred to PACU in stable condition. HUGH MALIN DO MEAT PASSER/[id number]
--- NOTE | 2020-08-11 17:28 | PATH ---
Surgical Pathology Report Patient Name: DAVID COTE Med. Rec. #: [id number] /Age/Gender: 1965 (Age: 54) / M Account: [id number] Location: [facility] MED/SURG Taken: 08/06/2020 Received: 08/09/2020 Reported: 08/11/2020 Physicians: DEREJE Martinez M.D. Specimen(s) Received A: PROXIMAL BONE B: FOURTH TOE Clinical History Gangrene Final Diagnosis A. PROXIMAL BONE, RIGHT, EXCISION: BONE WITHOUT SIGNIFICANT PATHOLOGIC FINDINGS. NO OSTEOMYELITIS IDENTIFIED. B. FOURTH TOE, RIGHT, AMPUTATION: DIGIT WITH MARKED ACUTE INFLAMMATION AND GANGRENOUS NECROSIS. UNDERLYING BONE WITH MILD ACUTE OSTEOMYELITIS. BONE AND SOFT TISSUE MARGINS ARE VIABLE; NEGATIVE FOR OSTEOMYELITIS. Electronically Signed Ashanti Bernal M.D. Gross Description A. Received in formalin labeled "proximal bone," is a 1.4 x 0.8 x 0.4 cm tyson-yellow portion of bone. The specimen is trisected and entirely submitted in one cassette, following decalcification. B. Received in formalin labeled "fourth toe," is a 5.4 x 1.8 x 1.7 cm toe amputation. The distal aspect of the specimen displays a 2.5 x 1.8 x 1.7 cm black, gangrenous lesion. The lesion focally involves the skin and soft tissue margin. The lesion involves the underlying bone. Cook House Supervisor sections are submitted in 3 cassettes as follows: 1-lesion with underlying bone, following decalcification; 2-bone margin, following decalcification; 3-skin and soft tissue margin. /08/09/2020 saudi/08/09/2020
== END 2020-08-07 15:33 | disposition home health service (06) | DRG 314 ==
LOC: JER 14:35 → JERBED 18:28 → J8W 20:43
PROVIDERS: ADMIT Internal Medicine
PROC: B41DZZZ Fluoroscopy of Aorta and Bilateral Lower Extremity Arteries (ICD-10-PCS; 2020-08-04)
PROC: 0Y6V0Z0 Detachment at Right 4th Toe, Complete, Open Approach (ICD-10-PCS; 2020-08-04)
PROC: 0YBM0ZX Excision of Right Foot, Open Approach, Diagnostic (ICD-10-PCS; 2020-08-04)
PROC: B41FZZZ Fluoroscopy of Right Lower Extremity Arteries (ICD-10-PCS; principal; 2020-08-04 14:30)
DX: E11.52 Type 2 diabetes mellitus with diabetic peripheral angiopathy with gangrene (principal); I96 Gangrene, not elsewhere classified; K21.9 Gastro-esophageal reflux disease without esophagitis; E78.00 Pure hypercholesterolemia, unspecified; E11.65 Type 2 diabetes mellitus with hyperglycemia; E87.5 Hyperkalemia; I12.9 Hypertensive chronic kidney disease with stage 1 through stage 4 chronic kidney disease, or unspecified chronic kidney disease; E11.22 Type 2 diabetes mellitus with diabetic chronic kidney disease; E11.40 Type 2 diabetes mellitus with diabetic neuropathy, unspecified; N17.9 Acute kidney failure, unspecified; M87.9 Osteonecrosis, unspecified; N18.30 Chronic kidney disease, stage 3 unspecified; E11.621 Type 2 diabetes mellitus with foot ulcer; L97.518 Non-pressure chronic ulcer of other part of right foot with other specified severity; I70.268 Atherosclerosis of native arteries of extremities with gangrene, other extremity; L98.498 Non-pressure chronic ulcer of skin of other sites with other specified severity
CPT/HCPCS: 36415; 71045-TC-FY; 73630-TC-RT-FY; 73660-TC-FY; 75635-TC; 76000-TC-FY; 76775-TC; 80048; 80053; 81003; 82565; 82962; 83735; 84100; 84156; 85025; 85027; 85610; 85651; 85730; 86140; 86850; 86900; 86901; 87040; 87070; 87075; 87076; 87077; 87186; 87205; 88305-TC; 88311-TC; 93005; 93010; 94760; 97116-GP; 97161-GP; 99285-25; G0463-25; J1644; Q9967; U0003

== ENCOUNTER 2025-06-30 11:24 | Emergency (ER) | payer OTHER ==
[2025-06-30 11:31] VITALS: BP 165/85; PULSE 78; RESP 18; TEMP 98; BMI 28.0
[2025-06-30] MEDS ORDERED: CEPHALEXIN MONOHYDRATE 500 MG CAPSULE (UD) ONE (12:28)
[2025-06-30] MEDS: CEPHALEXIN MONOHYDRATE 500 MG CAPSULE (UD) PO ONE (12:31)
== END 2025-06-30 14:17 | disposition home or self-care (01) ==
LOC: JER 11:24
DX: S91.102A Unspecified open wound of left great toe without damage to nail, initial encounter (principal); S91.105A Unspecified open wound of left lesser toe(s) without damage to nail, initial encounter; X58.XXXA Exposure to other specified factors, initial encounter
CPT/HCPCS: 73630-TC-LT; 99283-25